=== PATIENT | male | born 1930 | race Caucasian/White ===

== ENCOUNTER 2018-10-12 17:02 | Inpatient (IN) ==
[2018-10-12] MEDS ORDERED: 0.9 % Sodium Chloride 1,000 ML IVC ONE (17:09)
--- NOTE | 2018-10-12 17:20 | Emergency Department Note ---
Disposition Clinical Impression: Clostridium difficile infection, Hyponatremia, Hyperkalemia, VANESSA (acute kidney injury), Elevated troponin, Abnormal EKG, C. difficile colitis, NSTEMI (non-ST elevated myocardial infarction) Sepsis Qualifiers: Sepsis type: sepsis due to unspecified organism Qualified Code(s): A41.9 - Sepsis, unspecified organism Diarrhea Qualifiers: Diarrhea type: unspecified type Qualified Code(s): R19.7 - Diarrhea, unspecified Disposition: Admitted As Inpatient Condition: Undetermined Time of Disposition: 20:30 General Adult HPI - General Chief complaint: ED Nausea/Vomiting/Diarrhea Stated complaint: Concern for C.Diff and lethargy Time Seen by Provider: 10/12/18 17:03 Source: patient, EMS Mode of arrival: EMS Limitations: no limitations Nursing Notes Reviewed: Yes Vital Signs Reviewed: Yes - History of Present Illness HPI Narrative: Patient is an 88-year-old male with a past medical history including atrial fibrillation, AICD/debrillator, hypertension, congestive heart failure, coronary artery disease with multiple stent placements, indwelling Lunsford catheter, presenting with chief complaint of generalized weakness and diarrhea. The patient comes from his private home where his home health nurse was. He was recently admitted to a different facility for C. difficile. He is discharged home 3 days ago on vancomycin and Flagyl. Per EMS, the home health RN states that he continues to have diarrhea and appeared to be weak today and falling asleep. EMS states that their initial blood pressure was hypotensive. He was alert and oriented 3. Patient states he is feeling well. He denies any a dditional diarrhea, blood in his stool, abdominal pain, chest pain, shortness of breath, generalized weakness. He states he feels fine and does not understand why he is here. - Related Data Home Medications Medication Instructions Recorded Confirmed Allopurinol [Zyloprim 100 MG] 200 mg PO DAILY 10/12/18 10/12/18 Aspirin [Ecotrin] 325 mg PO DAILY 10/12/18 10/12/18 Atorvastatin Calcium [Lipitor] 10 mg PO HS 10/12/18 10/12/18 Bisacodyl [Woman's Laxative] 5 mg PO DAILY PRN 10/12/18 10/12/18 Calcium Carbonate/Vitamin D3 1 each PO DAILY 10/12/18 10/12/18 [Calcium 600 + Vit D Tablet] Cholecalciferol (D-3) [Vitamin D] 1,000 unit PO DAILY 10/12/18 10/12/18 Ciprofloxacin HCl [Cipro] 500 mg PO BID 10/12/18 10/12/18 Cyanocobalamin (B-12) [Vitamin B12] 1,000 mcg PO DAILY 10/12/18 10/12/18 Docusate Sodium [Dulcolax Stool 200 mg PO DAILY PRN 10/12/18 10/12/18 Softener] Ferrous Gluconate 324 mg PO DAILY 10/12/18 10/12/18 Finasteride [Proscar] 5 mg PO DAILY 10/12/18 10/12/18 Furosemide [Lasix] 40 mg PO BID 10/12/18 10/12/18 Lactobac #2-S. Therm-Bifido #1 1 each PO DAILY 10/12/18 10/12/18 [Visbiome 112.5 Billion Capsule] Lisinopril [Zestril] 10 mg PO DAILY 10/12/18 10/12/18 Melatonin [Melatin] 9 mg PO HS 10/12/18 10/12/18 Metoprolol Succinate 100 mg PO DAILY 10/12/18 10/12/18 Multivit-Min/FA/Lycopen/Lutein 1 each PO DAILY 10/12/18 10/12/18 [Senior Tabs] Nitroglycerin [Nitrostat] 0.4 mg SL PRN PRN 10/12/18 10/12/18 Omeprazole [PriLOSEC] 20 mg PO DAILY 10/12/18 10/12/18 Polyethylene Glycol 3350 [MiraLAX] 17 gm PO DAILY 10/12/18 10/12/18 Potassium Chloride [Klor-Con 10] 10 meq PO DAILY 10/12/18 10/12/18 Sennosides [Evac-U-Gen] 8.6 mg PO BID PRN 10/12/18 10/12/18 Spironolactone [Aldactone] 12.5 mg PO DAILY 10/12/18 10/12/18 Tamsulosin HCl [Flomax] 0.8 mg PO HS 10/12/18 10/12/18 metroNIDAZOLE [Metronidazole] 500 mg PO BID 10/12/18 10/12/18 Allergies Allergy/AdvReac Type Severity Reaction Status Date / Time No Known Allergies Allergy Unverified 02/16/16 08:25 All systems ED: reviewed and negative except as stated. Review of Systems: As Per HPI Constitutional: Reports: weakness. Denies: fever, chills Eyes: Denies: vision change ENT ED: Denies: congestion Cardiovascular: Denies: chest pain, palpitations Respiratory: Reports: dyspnea. Denies: cough Gastrointestinal: Reports: diarrhea. Denies: abdominal pain, nausea, vomiting, hematochezia Genitourinary: Denies: hematuria Musculoskeletal: Denies: back pain, neck pain Integumentary: Denies: abrasion Neurological: Denies: headache, weakness, paresthesias Past Medical History - Past Medical History Attestation: Yes The following information was validated with the patient. Source: patient Medical history: Reports: other (Atrial fibrillation, hypertension) Physical Exam - General Limitations: no limitations General appearance: alert, in no apparent distress - Head Head exam: atraumatic, normocephalic - Eye Eye exam: Present: normal appearance, PERRL, EOMI - ENT ENT exam: mucous membranes dry - Neck Neck exam: Present: normal inspection, trachea midline - Chest Chest inspection: Present: normal inspection, symmetric chest wall rise - Respiratory Respiratory exam: Present: normal lung sounds bilaterally. Absent: respiratory distress, wheezes - Cardiovascular Cardiovascular exam: Present: normal rhythm, bradycardia, normal heart sounds - Abdominal Exam Abdominal exam: Present: soft, Non-Tender. Absent: distention - Extremities Exam Extremities exam: Present: normal capillary refill, other (2+ bilateral lower extremity pitting edema) - Neurological Exam Neurological exam: Present: alert, CN II-XII intact, other (alert and oriented to person, place, time, not president). Absent: motor sensory deficit - Expanded Neurological Exam Speech: Present: fluid speech Cerebellar function: finger to nose: Normal Motor strength - LUE: 5/5 Motor strength - RUE: 5/5 Motor strength - LLE: 5/5 Motor strength - RLE: 5/5 - Psychiatric Psychiatric exam: Present: normal affect, normal mood - Skin Skin exam: Present: warm, dry. Absent: diaphoresis, pallor Course Vital Signs Temperature 98.9 F 10/12/18 17:08 Pulse Rate 57 10/12/18 17:08 Respiratory Rate 18 10/12/18 17:08 Blood Pressure 93/62 10/12/18 17:08 O2 Sat by Pulse Oximetry 100 10/12/18 17:08 Temperature 98.9 F 10/12/18 17:08 Pulse Rate 57 10/12/18 18:01 Respiratory Rate 13 10/12/18 18:30 Blood Pressure 130/58 10/12/18 18:01 O2 Sat by Pulse Oximetry 97 10/12/18 18:30 Oxygen Delivery Oxygen Delivery Room Air Medical Decision Making - MDM Narrative Medical decision making narrative: Family is now at bedside. They state that the patient has been hospitalized multiple times this year. [facility] has [facility] He follows up with [facility]. They state he was recently admitted for C. difficile and discharged on Wednesday on vancomycin and Flagyl. They state he had a great day yesterday and worked with physical therapy. He also has a baseline of dementia, however today he appeared to be more confused than usual. He appeared more generally weak. He did not sleep throughout the night so was sleeping intermittently throughout the day. They note that he has been having more diarrhea today and has had 8 episodes of nonbloody diarrhea since 8 AM this morning. States his urine is dark. Home health nurse came this evening and his blood pressure was 70 systolic. They are concerned that the patient is dehydrated. EMS was called and brought the patient here. They state that the p atient is DNR. Lab work including CBC, BMP, troponin, lactate, urinalysis, chest x-ray is pending. Repeat blood pressure is 107 systolic. He is receiving a liter of IV fluids. LVEF is 30% on 05/21/15. He does have pitting edema in bilateral lower extremity. Non focal neurologic examination. 18:10 Patient has an elevated troponin is 0.19, no baseline. He does have an elevated BUN and creatinine were GFR of 21. Unknown what his baseline kidney function is. He does have a history of CAD stage III. His potassium is 6.6. Sodium is 124. He likely has electrolyte derangements from the diarrhea he has not as well as dehydration. He denies any chest pain. There is no ST elevation or dep ressions on EKG. No peaked T waves on EKG. Lactate and elevated white blood count is elevated. Source of infection is likely his C. difficile which he is currently on vancomycin and Zosyn. Chest x-ray and urinalysis is pending at this time. We will not give the 30 mL/kg fluid bolus as he has pitting edema bilateral lower extremities and an ejection fracture of 30%, pacemaker and defibrillator. Do not want to fluid overload this patient. Random cortisol will be obtained. We will give 2 albuterol treatments, 10 units IV insulin, 2 amps of D50 IV, Kayexalate for the hyperkalemia. Patient does not have dysrhythmias or peaked T waves on his EKG so we will hold off on calcium gluconate for now. Blood pressure improved to 130 systolic. Patient denies any pain or complaints at this time. 18:35 CXR shows pulmonary vascular congestion. Will repeat EKG and give dose of lovenox for elevated troponin. 18:55 Repeat EKG was obtained at 1839 and compared to the EKG obtained at 1716. There are no changes noted. 19:[address] Gallegos, Nephrology. Recommend maintenance fluids with 1L at 60mls/hr. Will place consult to Nephrology. Will also obtain renal ultrasound. Will call hospitalist of admission. 20:[address] Berry, hospitalist. Will give calcium gluconate and solu- cortef. Patient may need ICU. Discussed with patients son and daughter at bedside who are both his medical power of ip technology transactions attorney. Patient is DNR-CCA - Medical Records Medical records reviewed: Yes I reviewed the patient's medical records. - Lab Data Lab results reviewed: Yes I reviewed the patient's lab results. Result diagrams: 10/12/18 17:23 10/12/18 17:23 Lab Results 10/12/18 10/12/18 10/12/18 Range/Units 17:23 17:23 17:23 WBC 12.6 H (4.3-11.1) K/mcL RBC 3.23 L (4.19-5.50) M/mcL Hgb 9.7 L (12.9-16.9) g/dL Hct 29.9 L (37.5-50.1) % MCV 92.6 (83.0-100.0) fL MCH 30.0 (28.0-33.3) pg MCHC 32.4 (31.6-35.5) g/dL RDW 16.2 H (11.5-14.5) % Plt Count 241 (140-400) K/mcL MPV 10.3 (9.4-12.4) fL Immature Gran % 4.0 (0-4) % Seg Neutrophils % 82.4 % Lymphocytes % 5.9 % Monocytes % 6.8 % Eosinophils % 0.7 % Basophils % 0.2 % Neutrophils # 10.4 H (1.6-8.9) K/mcL Lymphocytes # 0.7 (0.6-4.6) K/mcL Monocytes # 0.9 (0.0-1.3) K/mcL Eosinophils # 0.1 (0.0-0.6) K/mcL Basophils # 0.0 (0.0-0.2) K/mcL Sodium 124 L (136-145) mEq/L Potassium 6.6 H* (3.5-5.1) mEq/L Chloride 96 L (98-107) mEq/L Carbon Dioxide 15 L (23-29) mEq/L BUN 66 H (8-23) mg/dL Creatinine 2.82 H (0.70-1.30) mg/dL Est GFR ( Amer) 26 L (> 60) Est GFR (Non-Af Amer) 21 L (> 60) BUN/Creatinine Ratio 23 (6-26) Glucose 129 H (70-105) mg/dL Calculated Osmolality 279 L (280-300) Lactic Acid 2.7 H (0.5-2.2) mmol/L Calcium 8.6 (8.6-10.3) mg/dL Troponin I 0.19 H* (< 0.04) ng/mL Random Cortisol 28.8 mcg/dl - Radiology Data Radiology results reviewed: Yes I reviewed the patient's radiology results. Chest X-Ray 10/12/18 17:11 IMPRESSION: Pulmonary vascular congestion. D/ / Mariano Rogers MD / Mariano Rogers MD Interpreting Provider: Mariano Rogers MD - EKG Data EKG #1 EKG attestation: Yes I reviewed and interpreted this EKG. EKG results narrative: X-ray obtained at 1716 shows sinus rhythm with heart rate 57, AL interval 291, QRS duration 155, QTC 499, prolonged AL interval, no ST elevation, T-wave inversion in lead V5 and V6, aVL, no old EKG to compare to
--- NOTE | 2018-10-12 17:22 | Emergency Department Note ---
Disposition Clinical Impression: Clostridium difficile infection Disposition: Still a Patient Forms: ED Satisfaction Letter Time of Disposition: 17:23 General Adult HPI - General Chief complaint: ED Nausea/Vomiting/Diarrhea Stated complaint: Concern for C.Diff and lethargy Time Seen by Provider: 10/12/18 17:03 Source: patient, EMS Mode of arrival: EMS Limitations: no limitations Nursing Notes Reviewed: Yes Vital Signs Reviewed: Yes - History of Present Illness HPI Narrative: Attestation note: Patient was seen with the emergency medicine resident/nurse practitioner/ph ysician editorial assistant/transitional resident/medical student: Dr. LAWRENCE ESTRADA. I was present for the significant portions of the performance and interpretation of procedures and EKGs. I have personally performed a face to face evaluation on this patient. I have reviewed and agree with history and physical examination patient management and disposition. BRIEFLY: 88-year-old male recently released from [facility] diagnosis of C. difficile is on vancomycin and Flagyl. He went from there back to his home they noticed that he was a little more tired than usual he said he initially came in with "lethargic" patient is awake and alert answers all questions appropriately states he is not really having diarrhea does not appear to be in any major distress he is afebrile with stable vital signs patient will get screening labs. Disposition is pending at this time Pain Scale: 0 - Related Data Allergies Allergy/AdvReac Type Severity Reaction Status Date / Time No Known Allergies Allergy Unverified 05/21/15 08:25 Past Medical History - Past Medical History Medical history: Reports: other (Atrial fibrillation, hypertension) Psychiatric history: Reports: no psych history - Social History Smoking Status: Never smoker Smokeless Tobacco Status: No Alcohol use: Reports: none Drug use: Reports: none Physical Exam - General Limitations: no limitations General appearance: alert, in no apparent distress Course Vital Signs Temperature 98.9 F 10/12/18 17:08 Pulse Rate 57 10/12/18 17:08 Respiratory Rate 18 10/12/18 17:08 Blood Pressure 93/62 10/12/18 17:08 O2 Sat by Pulse Oximetry 100 10/12/18 17:08 Temperature 98.9 F 10/12/18 17:08 Pulse Rate 57 10/12/18 17:08 Respiratory Rate 18 10/12/18 17:08 Blood Pressure 93/62 10/12/18 17:08 O2 Sat by Pulse Oximetry 100 10/12/18 17:08 Oxygen Delivery Oxygen Delivery Room Air
[2018-10-12 17:33] LABS: Basophils % 0.2 %; Eosinophils # 0.1 K/mcL (0.0-0.6); Eosinophils % 0.7 %; Hematocrit 29.9 % (37.5-50.1); Hemoglobin 9.7 g/dL (12.9-16.9); Lymphocytes # 0.7 K/mcL (0.6-4.6); Lymphocytes % 5.9 %; Mean Corpuscular HGB Conc 32.4 g/dL (31.6-35.5); Mean Corpuscular Volume 92.6 fL (83.0-100.0); Mean Platelet Volume 10.3 fL (9.4-12.4); Monocytes # 0.9 K/mcL (0.0-1.3); Monocytes % 6.8 %; Neutrophils # 10.4 K/mcL (1.6-8.9); Platelet Count 241 K/mcL (140-400); Red Blood Count 3.23 M/mcL (4.19-5.50); Red Cell Distribution Width 16.2 % (11.5-14.5); Segmented Neutrophils % 82.4 %; White Blood Count 12.6 K/mcL (4.3-11.1)
[2018-10-12 18:05] LABS: Calcium 8.6 mg/dL (8.6-10.3); Potassium 6.6 mEq/L (3.5-5.1); Troponin I 0.19 ng/mL (< 0.04)
[2018-10-12] MEDS ORDERED: Albuterol 2.5 MG/3 ML NEBULIZER IH ONE (18:13)
[2018-10-12] MEDS ORDERED: Insulin Human Regular 10 UNIT in 0.9 % Sodium Chloride 10 ML IV ONE (18:13)
[2018-10-12] MEDS ORDERED: *HR* Enoxaparin 100 MG/ML SYRINGE SQ STA (19:03)
[2018-10-12] MEDS: *HR* Dextrose 50 % in Water (Syg) 50 ML SYRINGE IVP ONE ×3 (19:20→19:40)
[2018-10-12] MEDS ORDERED: 0.9 % Sodium Chloride 1,000 ML IVC SCH (19:30)
[2018-10-12] MEDS ORDERED: Hydrocortisone Sodium Succ 100 MG/2 ML VIAL IVP ONE (20:03)
[2018-10-12] MEDS ORDERED: Calcium Gluconate 1gm/50mL 1 GM/50 ML BAG IVPB ONE (20:03)
[2018-10-12] MEDS: Calcium Gluconate 1gm/50mL 1 GM/50 ML BAG IVPB ONE ×2 (20:07→20:49)
[2018-10-12] MEDS ORDERED: Melatonin 3 MG TABLET PO SCH (21:00)
[2018-10-12] MEDS ORDERED: Naloxone 0.4 MG/ML INJ IVP PRN ×2 (21:15→21:40)
[2018-10-12] MEDS ORDERED: Sennosides 8.6 MG TABLET PO PRN (21:18)
[2018-10-12] MEDS ORDERED: Nitroglycerin 0.4 MG TAB.SUBL SL PRN (21:18)
[2018-10-12] MEDS ORDERED: 0.9 % Sodium Chloride 1,700 ML IVC SCH (21:45)
[2018-10-12 22:00] LABS: Bilirubin,Urine Negative (Negative); Blood,Urine Large (Negative); Clarity,Urine Cloudy (Clear); Color,Urine Yellow (Yellow); Glucose,Urine (UA) Normal (Normal); Ketones,Urine Negative (Negative); Leukocyte Esterase,Urine Moderate (Negative); Nitrite,Urine Negative (Negative); Protein,Urine 100 mg/dL (Neg-Trace); Specific Gravity,Urine 1.019 (1.010-1.025); Urobilinogen,Urine Normal (Normal)
[2018-10-12 22:02] LABS: Bacteria,Urine None Seen per hpf (None-Few); Squamous Epithelial Cell,Urine Many per lpf (None-Few); WBC,Urine 15-30 per hpf (0-3)
[2018-10-12] MEDS ORDERED: 0.9 % Sodium Chloride 1,000 ML ONE (22:04)
[2018-10-12 22:12] LABS: Hyaline Casts,Urine Few per lpf (None-Few); Yeast,Urine Few per hpf (None Seen)
[2018-10-12] MEDS: MetroNIDAZOLE 500 MG/100 ML 500 MG/100 ML BAG IVPB SCH (23:02)
[2018-10-12] MEDS: 0.9 % Sodium Chloride 1,000 ML IVC SCH (23:02)
--- NOTE | 2018-10-12 23:17 | Internal Med History&Physical ---
Date of Encounter: 10/12/18 Time of Encounter: 19:55 Internal Medicine - H&P: HPI Chief complaint: weakness; depressed responsiveness Admitted From: Emergency Dept Plans for Post Hospital Care: Transfer Long Term Facility History of present illness: Mr. Landa is an 88 year old male who presents to the ER by squad for concerns of worsening weakness, depressed mental status, lack of urine output, and ongoing C. difficile colitis with diarrhea. Patient was recently hospitalized at the [facility] and was discharged about a week ago. He been on home antibiotics and had home health therapy for treatment of C. difficile colitis. He was seen by his home health nurse today who noted his blood pressure be in the 60s systolic and that he was minimally responsive and quite somnolent. She contacted the family and recommended patient be transferred to ER by EMS. 911 was called and patient was brought to ER. In the ER, patient was noted to be profoundly weak, intravascularly dry, somnolent, and had evidence of severe sepsis along with hyperkalemia and hyponatremia in the setting of acute kidney injury. CODE STATUS was clarified with family and he is DNR Arrest. I was called by ER staff and accepted him to be admitted to the intensive care unit. I arrived to the ER to see patient and discussed with family. Upon my initial assessment of the patient, he appeared to be intravascular dry, had evidence of poor perfusion with absence and marked delay of capillary refill, and had depressed level of consciousness. I spoke with family at length about CODE STATUS and his expressed wishes are to be a DNR Arrest. He did receive 1 L fluid bolus for sepsis treatment. He has not yet received 30 mL's per kilogram per sepsis protocol because of concerns of CHF. Given his clinical picture and evidence of poor perfusion, I recommend the full 30/kg bolus with ongoing maintenance fluids. However, given such a fluid bolus, this may throw him into worsening heart failure. Presently, he is breathing easily and comfortably on room air. However, with excessive fluid bolus, he may require supportive measures, including intubation. Family is OK with short-term intubation if necessary. However, they wish to exercise his DNR Arrest CODE STATUS otherwise. I am also concerned about his hyperkalemia and that he may warrant emergent dialysis. If he fails treatment with conservative measures, he may warrant temporary dialysis tonight. Family agrees to that as well if necessary. He has not reported any significant abdominal pain but he has complained of diarrhea. His oral intake has diminished the last few days. His daughter and son say he's had almost no urine output for 24 hours now. I explained to family that he is critically ill and, despite all measures, he may not survive this hospital stay. They voiced understanding and agreement with the plan of care. As noted above, they are OK with short-term intubation in the event he needs it for CHF complicated by treatment of sepsis and fluid requirements. In the event that he develops toxic megacolon, they will likely defer any surgical intervention and will likely request to keep him comfortable only. I agree with their decision in this regards. My hope is that he will improve and survive. However, he remains critically ill and presently carries a high mortality risk. This was conveyed to family and they voiced understanding. Past Med Surg Social Fam HX - Past Medical History Source: obtained from family, other (very limited ER records; no [facility] for review) Medical history: CHF, coronary artery disease, dementia, renal disease (CKD stage 2) Psychiatric history: no psych history - Past Surgical History Surgical History: angioplasty/stent, pacemaker/AICD - Social History Smoking Status: Never smoker Smokeless Tobacco Status: No Alcohol use: none Drug use: none Current living situation: Home - Independent Activity Level: Mostly sedentary Recent Out of Country Travel Within the Last 8 Weeks: No - Family History Mother History Unknown: Yes Living Status: Father History Unknown: Yes Living Status: Internal Medicine - H&P: Meds Allopurinol [Zyloprim 100 MG] 200 mg PO DAILY 10/12/18 [History] Aspirin [Ecotrin] 325 mg PO DAILY 10/12/18 [History] Atorvastatin Calcium [Lipitor] 10 mg PO HS 10/12/18 [History] Bisacodyl [Woman's Laxative] 5 mg PO DAILY PRN 10/12/18 [History] Calcium Carbonate/Vitamin D3 [Calcium 600 + Vit D Tablet] 1 each PO DAILY [History] Cholecalciferol (D-3) [Vitamin D] 1,000 unit PO DAILY 10/12/18 [History] Ciprofloxacin HCl [Cipro] 500 mg PO BID 10/12/18 [History] Cyanocobalamin (B-12) [Vitamin B12] 1,000 mcg PO DAILY 10/12/18 [History] Docusate Sodium [Dulcolax Stool Softener] 200 mg PO DAILY PRN 10/12/18 [History] Ferrous Gluconate 324 mg PO DAILY 10/12/18 [History] Finasteride [Proscar] 5 mg PO DAILY 10/12/18 [History] Furosemide [Lasix] 40 mg PO BID 10/12/18 [History] Lactobac #2-S. Therm-Bifido #1 [Visbiome 112.5 Billion Capsule] 1 each PO DAILY 10/12/18 [History] Lisinopril [Zestril] 10 mg PO DAILY 10/12/18 [History] Melatonin [Melatin] 9 mg PO HS 10/12/18 [History] Metoprolol Succinate 100 mg PO DAILY 10/12/18 [History] Multivit-Min/FA/Lycopen/Lutein [Senior Tabs] 1 each PO DAILY 10/12/18 [History] Nitroglycerin [Nitrostat] 0.4 mg SL PRN PRN 10/12/18 [History] Omeprazole [PriLOSEC] 20 mg PO DAILY 10/12/18 [History] Polyethylene Glycol 3350 [MiraLAX] 17 gm PO DAILY 10/12/18 [History] Potassium Chloride [Klor-Con 10] 10 meq PO DAILY 10/12/18 [History] Sennosides [Evac-U-Gen] 8.6 mg PO BID PRN 10/12/18 [History] Spironolactone [Aldactone] 12.5 mg PO DAILY 10/12/18 [History] Tamsulosin HCl [Flomax] 0.8 mg PO HS 10/12/18 [History] metroNIDAZOLE [Metronidazole] 500 mg PO BID 10/12/18 [History] Allergy/AdvReac Type Severity Reaction Status Date / Time No Known Allergies Allergy Unverified 05/21/15 08:25 ROS unobtainable: due to mental status (patient arousable, confused, and somnolent -- unable to provide ROS) - Constitutional Vitals: Temp Pulse Resp BP Pulse Ox 96.7 F L 61 16 152/117 97 10/12/18 21:20 10/12/18 21:20 10/12/18 21:20 10/12/18 21:20 07/10/19 21:20 General appearance: Absent: answers questions appropriately Exam: somnolent; arousable but drifts off to sleep; appears intravascularly dry with poor perfusion and marked delay in cap refill; third spacing likely due to protein loss from C. Diff Colitis; ashen zamora color - Head Head exam: Present: atraumatic, normal inspection - Eye Eye exam: Present: PERRL. Absent: scleral icterus - ENT ENT exam: Present: mucous membranes dry, normal exam, normal oropharynx Additional comments: sunken eyes; temporal muscle wasting - Neck Neck exam general surgery: Present: full ROM, supple, trachea midline. Absent: lymphadenopathy, tenderness, nuchal rigidity, thyromegaly - Respiratory Respiratory exam: Present: CTAB. Absent: chest wall tenderness, rales, respiratory distress, rhonchi, wheezes, tachypnea - Cardiovascular Cardiovascular exam: Present: distant heart sounds, +S1, +S2. Absent: diastolic murmur, systolic murmur Additional comments: pacer palpable in left upper chest - GI/Abdominal GI/Abdominal exam: Present: distended, hypoactive bowel sounds, soft, no peritoneal signs. Absent: guarding, hepatomegaly, mass, rebound, splenomegaly, tenderness - Extremities Exam Extremities exam: Present: pedal edema (2-3+ ), radial pulses palpable and symmetrical. Absent: calf tenderness, joint swelling, normal capillary refill (markedly delayed at ~ 5-6 seconds), mottling, warm (cool extremities) - Back Exam Back exam: Absent: CVA tenderness (L), CVA tenderness (R) - Neurological Exam Neurological exam: Absent: alert Additional comments: somnolent; responds to voice, pain, and has purposeful movements - Skin Skin exam: Present: dry, intact. Absent: mottled, normal color (ashen zamora), rash Additional comments: poor cap refill Internal Med - H&P Results - Labs CBC & Chem 7: 10/12/18 17:23 10/12/18 20:46 Labs: Short CBC 10/12/18 Range/Units 17:23 WBC 12.6 H (4.3-11.1) K/mcL Hgb 9.7 L (12.9-16.9) g/dL Hct 29.9 L (37.5-50.1) % Plt Count 241 (140-400) K/mcL Neutrophils # 10.4 H (1.6-8.9) K/mcL BMP 10/12/18 10/12/18 17:23 20:46 Sodium 124 L Potassium 6.6 H* 5.9 H Chloride 96 L Carbon Dioxide 15 L BUN 66 H Creatinine 2.82 H Glucose 129 H Calcium 8.6 Cardiac Enzymes 10/12/18 Range/Units 17:23 Troponin I 0.19 H* (< 0.04) ng/mL Urine 10/12/18 Range/Units 21:48 Urine Color Yellow (Yellow) Urine Clarity Cloudy A (Clear) Urine pH 5.0 (5.0-8.0) pH Units Ur Specific [place] 1.019 (1.010-1.025) Urine Protein 100 H (Neg-Trace) mg/dL Urine Glucose (UA) Normal (Normal) mg/dL - EKG Data -: EKG Interpreted by Myself - EKG Data Prior EKG available for review: no When compared to previous EKG: there is no significant change EKG comments: 10/12/18 23:26 Poor quality tracing appears to be ventricular paced with PVC's. - Impressions ITS Impressions Chest X-Ray 10/12/18 17:11 IMPRESSION: Pulmonary vascular congestion. D/ / Mariano Rogers MD / Mariano Rogers MD Interpreting Provider: Mariano Rogers MD Retroperitoneum Ultrasound 10/12/18 19:30 IMPRESSION: 1. No obstructive uropathy. 2. Luns[place] catheter in place. 3. Ascites. D/ / Adilson Early MD / Adilson Early MD Interpreting Provider: Adilson Early MD - Diagnostic Studies Chest x-ray Status: image reviewed by me - Assessment and Plan (1) Severe sepsis Current Visit: Yes Status: Acute Assessment and plan: 1. Most likely source is Clostridium Difficile Colitis. 2. Will order and complete 30 ml/kg IVF bolus (another 1700 ml in addition to 100 ml given in ER) and continue MIV. 3. Will trend Lactate and monitor hemodyamics in ICU. 4. If patient develops acute CHF and respiratory distress secondary to IVF boluses from sepsis treatment, short term intubation is OK. Presently, he is breathing easily and comfortably on RA. His lungs are clear on auscultation and I suspect BLE edema due to protein malnutrition from C. Diff/protein losing enteropathy. 5. Prognosis is poor and mortality risk is high -- discussed with family. 6. Consult ICU team for ongoing ICU care. (2) VANESSA (acute kidney injury) Current Visit: Yes Status: Acute Assessment and plan: 1. Monitor I/O and renal function. 2. Nephrology consulted. 3. Monitor electrolytes, especially potassium. (3) C. difficile colitis Current Visit: Yes Status: Acute Assessment and plan: 1. Will treat with IV Flagyl and rectal Vancomycin enemas. 2. Patient unable to take PO meds presently. (4) Hyperkalemia Current Visit: Yes Status: Acute Assessment and plan: 1. Will trend and monitor electrolytes Q6H. 2. Will administer stress dose steroids in the rare event he has developed adrenal insufficiency. 3. Home med list is not available and I can not confirm from family if he is on any chronic steroids. 4. Patient was given conservative treatment for hyperkalemia in ER. Continue IVF and monitor potassium closely. 5. Nephrology consulted by ER. (5) Hyponatremia Current Visit: Yes Status: Acute Assessment and plan: 1. As above, trend electrolytes Q6H. 2. Stress dose steroids for remote possibility of adrenal insufficiency. (6) CHF (congestive heart failure) Current Visit: Yes Status: Chronic Assessment and plan: 1. No acute process on exam despite BLE edema. 2. Monitor clinically. 3. If necessary, short term intubation OK for treatment of CHF. Qualifiers: Heart failure type: unspecified Heart failure chronicity: chronic Qualified Code(s): I50.9 - Heart failure, unspecified (7) DVT prophylaxis Current Visit: Yes Status: Acute Assessment and plan: 1. Heparin SQ. - Summary of Assessment and Plan Summary of Assessment and Plan: Note: 45 minutes critical care time spent with patient, discussing with family, and coordinating care. - Time Spent With Patient Total time spent is greater than 50% in coordination of care (as documented) at patient's floor/unit and/or counseling patient:
[2018-10-12 23:34] LABS: INR 1.3; Prothrombin Time 15.3 Seconds (9.4-12.1)
[2018-10-12 23:44] LABS: Calcium 8.4 mg/dL (8.6-10.3); Potassium 5.8 mEq/L (3.5-5.1)
[2018-10-13 00:01] LABS: Albumin 3.2 g/dL (3.5-5.7); Albumin/Globulin Ratio 1.3 (1.1-2.2); Bilirubin,Direct 0.2 mg/dL (0.0-0.2); Bilirubin,Indirect 0.2 mg/dL (0.0-1.2); Bilirubin,Total 0.4 mg/dL (0.3-1.0); Globulin 2.4 g/dL (2.4-3.5); Total Protein 5.6 g/dL (6.4-8.9)
[2018-10-13] MEDS: *HR* Heparin 5,000 UNIT/ML VIAL SQ SCH ×2 (05:21→17:03)
[2018-10-13 05:27] LABS: Basophils % 0.2 %; Eosinophils % 0.1 %; Hematocrit 29.8 % (37.5-50.1); Hemoglobin 9.7 g/dL (12.9-16.9); Immature Granulocytes % 5.3 % (0-4); Lymphocytes # 0.4 K/mcL (0.6-4.6); Lymphocytes % 3.6 %; Mean Corpuscular HGB Conc 32.6 g/dL (31.6-35.5); Mean Corpuscular Hemoglobin 30.3 pg (28.0-33.3); Mean Corpuscular Volume 93.1 fL (83.0-100.0); Mean Platelet Volume 10.7 fL (9.4-12.4); Monocytes # 0.4 K/mcL (0.0-1.3); Monocytes % 3.5 %; Neutrophils # 10.4 K/mcL (1.6-8.9); Platelet Count 234 K/mcL (140-400); Red Cell Distribution Width 16.4 % (11.5-14.5); Segmented Neutrophils % 87.3 %; White Blood Count 11.9 K/mcL (4.3-11.1)
[2018-10-13 05:50] LABS: Calcium 8.2 mg/dL (8.6-10.3); Magnesium 2.2 mg/dL (1.6-2.6); Phosphorous 6.5 mg/dL (2.7-4.5); Potassium 6.5 mEq/L (3.5-5.1)
[2018-10-13 05:56] LABS: Burr Cells 1+ (Not Present); Hypochromasia Present (Not Present); Platelet Estimate Normal (Normal)
[2018-10-13] MEDS ORDERED: Hydrocortisone Sodium Succ 100 MG/2 ML VIAL IVP SCH (06:00)
[2018-10-13] MEDS ORDERED: *HR* Dextrose 50 % in Water (Syg) 50 ML SYRINGE IVP STA (06:07)
[2018-10-13] MEDS ORDERED: Insulin Human Regular 10 UNIT in 0.9 % Sodium Chloride 10 ML IV STA (06:08)
[2018-10-13] MEDS ORDERED: Albuterol 2.5 MG/3 ML NEBULIZER IH ONE (06:09)
[2018-10-13] MEDS ORDERED: Calcium Gluconate 1gm/50mL 1 GM/50 ML BAG IVPB ONE (06:30)
--- NOTE | 2018-10-13 06:40 | Event Note ---
Date of Encounter: 10/13/18 Time of Encounter: 06:20 Pt had a critical potassium of 6.5. 10mg Albuterol, 10U insulin IV with dextrose, 1g Calcium gluconate and 30mg Kayexelate were ordered with a repeat potassium scheduled for 0800. Nephro has already been consulted. Pt denies chest pain. As he is already fluid overloaded we will not give additional fluids at this time.
--- NOTE | 2018-10-13 07:05 | Pulmonology Consult Note ---
<JassAris Marinelli - Last Filed: 10/13/18 14:36> Date of Encounter: 10/13/18 Time of Encounter: 08:00 Assessment and Plan (1) Severe sepsis Current Visit: Yes Status: Acute Most likely related to C. difficile colitis Patient received 2 L IV fluid resuscitation - further IV fluids will be given cautiously given patient has a history of CHF Lactic acid trended 2.7 -> 2.4 -> 2.0 Vital signs remain stable at this time, afebrile, blood pressures have been soft with most recent at 99/67. Saturating well on room air. Continue IV Flagyl and rectal vancomycin enemas We will give 500 mL 5% albumin Continue close monitoring in ICU at this time (2) Hyperkalemia Current Visit: Yes Status: Acute Elevated at 6.6 on presentation Received 10 units of insulin, calcium gluconate, albuterol, and IV fluids initially. Patient did refuse po Kayexalate. Potassium was continued to be trended and was noted to initially improve, but subsequently worsened with most recent this morning at 6.6 once more. Another dose of 10 units of insulin, calcium gluconate, albuterol neb were or dered. Kayexalate enema was also ordered as patient continues to refuse po meds. Nephrology has been consulted as patient is also noted to have VANESSA with oliguria. Palliative care also consulted for further goals of care discussion. 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 T wave inversion was noted in leads V5, V6, and aVL. Suspect demand ischemia with severe sepsis Unable to truly evaluate for chest pain, however pt is resting comfortably with no signs of guarding or grimace Continue to monitor (5) C. difficile colitis Current Visit: Yes Status: Acute IV Flagyl and rectal Vanc as above (6) CHF (congestive heart failure) Current Visit: Yes Status: Chronic Reported history of CHF Pt does have AICD as visualized on CXR Will attempt [facility] obtain [facility] Qualifiers: Heart failure type: unspecified Heart failure chronicity: chronic Qualified Code(s): I50.9 - Heart failure, unspecified History of Present Illness Consult date: 10/13/18 Reason for consult: other Chief complaint: Hyperkalemia History of present illness: Mr Landa is a 88M with PMH of CAD, CHF, CKD, and dementia. Most of the history of present illness is obtained from review of records as patient is noncommunicative at this time. Reports he was recently hospitalized at the [facility] and was discharged about one week ago with home antibiotics for treatment of C. difficile colitis. Home health nurse visited on 10/12/2018 and reported that his blood pressure was in the 60s systolic and at the patient was minimally responsive and quite somnolent. The patient was then taken to the ER by EMS, where the patient was found to be profoundly weak, intravascularly depleted, somnolent, and had evidence of severe sepsis with hyperkalemia, and hyponatremia in the setting of an acute kidney injury. Chest x-ray from ED showed pulmonary vascular congestion. The patient did receive 2 L of IV fluids. He was started on IV Flagyl and rectal vancomycin enemas for continued treatment of C. difficile colitis. In stress dose steroids to cover for adrenal insufficiency, and given calcium gluconate, albuterol neb, and 10 units of insulin to assist with hyperkalemia. Nephrology was consulted. Patient seen and examined at bedside this morning. Patient is alert, but unclear whether he is unable to speak or refusing to speak. He has grossly not cooperative with exam. Of note patient refused po Kayexalate this morning. A repeat potassium was noted to be continually elevated to 6.6 this morning, another 10 units of insulin, albuterol neb, and calcium gluconate were given. Past Med Surg Social Fam HX - Past Medical History Medical history: CHF, coronary artery disease, dementia, renal disease (CKD stage 2) Additional medical history: Not assessable- patient unsure Psychiatric history: no psych history - Past Surgical History Surgical History: angioplasty/stent, pacemaker/AICD - Social History Smoking Status: Never smoker Smokeless Tobacco Status: No Alcohol use: none Drug use: none - Family History Mother History Unknown: Yes Living Status: Father History Unknown: Yes Living Status: Medications and Allergies Allopurinol [Zyloprim 100 MG] 200 mg PO DAILY 10/12/18 [History] Aspirin [Ecotrin] 325 mg PO DAILY 10/12/18 [History] Atorvastatin Calcium [Lipitor] 10 mg PO HS 10/12/18 [History] Bisacodyl [Woman's Laxative] 5 mg PO DAILY PRN 10/12/18 [History] Calcium Carbonate/Vitamin D3 [Calcium 600 + Vit D Tablet] 1 each PO DAILY 10/12/18 [History] Cholecalciferol (D-3) [Vitamin D] 1,000 unit PO DAILY 10/12/18 [History] Ciprofloxacin HCl [Cipro] 500 mg PO BID 10/12/18 [History] Cyanocobalamin (B-12) [Vitamin B12] 1,000 mcg PO DAILY 10/12/18 [History] Docusate Sodium [Dulcolax Stool Softener] 200 mg PO DAILY PRN 10/12/18 [History] Ferrous Gluconate 324 mg PO DAILY 10/12/18 [History] Finasteride [Proscar] 5 mg PO DAILY 10/12/18 [History] Furosemide [Lasix] 40 mg PO BID 10/12/18 [History] Lactobac #2-S. Therm-Bifido #1 [Visbiome 112.5 Billion Capsule] 1 each PO DAILY 10/12/18 [History] Lisinopril [Zestril] 10 mg PO DAILY 10/12/18 [History] Melatonin [Melatin] 9 mg PO HS 10/12/18 [History] Metoprolol Succinate 100 mg PO DAILY 10/12/18 [History] Multivit-Min/FA/Lycopen/Lutein [Senior Tabs] 1 each PO DAILY 10/12/18 [History] Nitroglycerin [Nitrostat] 0.4 mg SL PRN PRN 10/12/18 [History] Omeprazole [PriLOSEC] 20 mg PO DAILY 10/12/18 [History] Polyethylene Glycol 3350 [MiraLAX] 17 gm PO DAILY 10/12/18 [History] Potassium Chloride [Klor-Con 10] 10 meq PO DAILY 10/12/18 [History] Sennosides [Evac-U-Gen] 8.6 mg PO BID PRN 10/12/18 [History] Spironolactone [Aldactone] 12.5 mg PO DAILY 10/12/18 [History] Tamsulosin HCl [Flomax] 0.8 mg PO HS 10/12/18 [History] metroNIDAZOLE [Metronidazole] 500 mg PO BID 10/12/18 [History] Allergy/AdvReac Type Severity Reaction Status Date / Time No Known Allergies Allergy Unverified 05/21/15 08:25 ROS unobtainable: due to mental status All Systems: The remainder of the systems were reviewed and are negative Physical Examination Vital Signs: Vital Signs, Last 4 Hours Temp Pulse Resp BP Pulse Ox 10/13/18 06:18 24 97 10/13/18 06:00 58 22 99/67 92 10/13/18 05:00 61 30 96/61 90 10/13/18 04:00 97.5 F L 59 28 89/48 92 General appearance: no acute distress, alert Eyes: nonicteric ENT: oropharynx dry Neck: supple, no JVD Effort: normal Inspection: normal Auscultation: bilateral: diminished breath sounds Cardiovascular: regular rate and rhythm Gastrointestinal: soft, non-tender, non-distended Integumentary: normal Extremities: no cyanosis, no clubbing, pink and warm, pulses normal Musculoskeletal: no deformities pupils equal and round, unable to assess due to mental status Results - Laboratory Findings CBC and BMP: 10/13/18 04:18 10/13/18 10:16 PT/INR, D-dimer PT 15.3 Seconds (9.4-12.1) H 10/12/18 22:54 Abnormal lab findings: Abnormal lab results WBC 11.9 K/mcL (4.3-11.1) H 10/13/18 04:18 RBC 3.20 M/mcL (4.19-5.50) L 10/13/18 04:18 Hgb 9.7 g/dL (12.9-16.9) L 10/13/18 04:18 Hct 29.8 % (37.5-50.1) L 10/13/18 04:18 RDW 16.4 % (11.5-14.5) H 10/13/18 04:18 Immature Gran % 5.3 % (0-4) H 10/13/18 04:18 10.4 K/mcL (1.6-8.9) H 10/13/18 04:18 0.4 K/mcL (0.6-4.6) L 10/13/18 04:18 Present (Not Present) A 10/13/18 04:18 1+ (Not Present) A 10/13/18 04:18 PT 15.3 Seconds (9.4-12.1) H 10/12/18 22:54 Sodium 126 mEq/L (136-145) L 10/13/18 04:18 Potassium 6.5 mEq/L (3.5-5.1) H* 10/13/18 04:18 Chloride 96 mEq/L (98-107) L 10/12/18 17:23 Carbon Dioxide 15 mEq/L (23-29) L 10/13/18 04:18 BUN 68 mg/dL (8-23) H 10/13/18 04:18 2.86 mg/dL (0.70-1.30) H 10/13/18 04:18 Est GFR ( Amer) 25 (> 60) L 10/13/18 04:18 Est GFR (Non-Af Amer) 21 (> 60) L 10/13/18 04:18 Glucose 119 mg/dL (70-105) H 10/13/18 04:18 POC Glucose 134 mg/dL (70-99) H 10/12/18 22:18 279 (280-300) L 10/12/18 17:23 Lactic Acid 2.4 mmol/L (0.5-2.2) H 10/12/18 21:14 Calcium 8.2 mg/dL (8.6-10.3) L 10/13/18 04:18 Phosphorus 6.5 mg/dL (2.7-4.5) H 10/13/18 04:18 AST 959 Units/L (13-39) H 10/12/18 22:54 ALT 897 Units/L (7-52) H 10/12/18 22:54 176 Units/L (34-104) H 10/12/18 22:54 0.21 ng/mL (< 0.04) H* 10/13/18 01:36 5.6 g/dL (6.4-8.9) L 10/12/18 22:54 3.2 g/dL (3.5-5.7) L 10/12/18 22:54 Cloudy (Clear) A 10/12/18 21:48 100 mg/dL (Neg-Trace) H 10/12/18 21:48 Large (Negative) H 10/12/18 21:48 Ur Leukocyte Esterase Moderate (Negative) H 10/12/18 21:48 5-15 per hpf (0-3) H 10/12/18 21:48 15-30 per hpf (0-3) H 10/12/18 21:48 Ur Squamous Epith Cells Many per lpf (None-Few) H 10/12/18 21:48 Few per hpf (None Seen) H 10/12/18 21:48 Ur Culture Indicated? YES (NO) A 10/12/18 21:48 - Microbiology Findings Microbiology Findings: Microbiology, Last 48 Hours 10/12/18 21:48 Urine Culture - Preliminary Urine,Clean Catch Culture is incubating. 10/12/18 20:46 Blood Culture - Preliminary Peripheral Venipuncture Culture is incubating and being continuously monitored for growth. Final report to follow. 10/12/18 20:46 Blood Culture - Preliminary Peripheral Venipuncture Culture is incubating and being continuously monitored for growth. Final report to follow. - Diagnostic Findings Chest x-ray: report reviewed, image reviewed - Clinical Findings Intake & Output: Intake & Output 10/12/18 10/12/18 10/13/18 15:59 23:59 07:59 Intake Total 2059.2059.1 100 / 100 Output Total 50 / 50 50 / 50 Balance 2009. 50 / 50 Weight 91.9 kg 82.8 kg Consult Discharge Plan - Plan [facility] Provider[facility] - <Mauri Fitzgerald - Last Filed: 10/13/18 19:24> Date of Encounter: 10/13/18 All Systems: The remainder of the systems were reviewed and are negative Physical Examination Vital Signs: Vital Signs, Last 4 Hours Temp Pulse Resp BP Pulse Ox 10/13/18 19:00 97.2 F L 70 19 110/67 96 10/13/18 18:46 66 10/13/18 18:22 67 20 113/65 96 10/13/18 17:00 65 17 86/57 97 10/13/18 16:27 97.5 F L 10/13/18 16:00 64 21 112/69 97 Results - Laboratory Findings CBC and BMP: 10/13/18 16:05 10/13/18 16:05 PT/INR, D-dimer PT 15.3 Seconds (9.4-12.1) H 10/12/18 22:54 Abnormal lab findings: Abnormal lab results WBC 14.8 K/mcL (4.3-11.1) H 10/13/18 16:05 RBC 3.22 M/mcL (4.19-5.50) L 10/13/18 16:05 Hgb 9.6 g/dL (12.9-16.9) L 10/13/18 16:05 Hct 29.9 % (37.5-50.1) L 10/13/18 16:05 RDW 16.2 % (11.5-14.5) H 10/13/18 16:05 Immature Gran % 4.7 % (0-4) H 10/13/18 16:05 Neutrophils # 12.9 K/mcL (1.6-8.9) H 10/13/18 16:05 Lymphocytes # 0.4 K/mcL (0.6-4.6) L 10/13/18 16:05 Nucleated RBCs/100 WBC 0.1 /100 WBC (0) H 10/13/18 16:05 Hypochromasia Present (Not Present) A 10/13/18 04:18 Mike Cells 1+ (Not Present) A 10/13/18 04:18 PT 15.3 Seconds (9.4-12.1) H 10/12/18 22:54 Sodium 128 mEq/L (136-145) L 10/13/18 16:05 Potassium 6.2 mEq/L (3.5-5.1) H 10/13/18 16:05 Chloride 96 mEq/L (98-107) L 10/12/18 17:23 Carbon Dioxide 16 mEq/L (23-29) L 10/13/18 16:05 BUN 73 mg/dL (8-23) H 10/13/18 16:05 Creatinine 3.13 mg/dL (0.70-1.30) H 10/13/18 16:05 Est GFR ( Amer) 23 (> 60) L 10/13/18 16:05 Est GFR (Non-Af Amer) 19 (> 60) L 10/13/18 16:05 Glucose 120 mg/dL (70-105) H 10/13/18 16:05 POC Glucose 134 mg/dL (70-99) H 10/12/18 22:18 Calculated Osmolality 279 (280-300) L 10/12/18 17:23 Lactic Acid 3.1 mmol/L (0.5-2.2) H 10/13/18 16:05 Uric Acid 8.5 mg/dL (2.3-7.6) H 10/13/18 16:05 Calcium 8.3 mg/dL (8.6-10.3) L 10/13/18 16:05 Phosphorus 6.5 mg/dL (2.7-4.5) H 10/13/18 04:18 AST 959 Units/L (13-39) H 10/12/18 22:54 ALT 897 Units/L (7-52) H 10/12/18 22:54 Alkaline Phosphatase 176 Units/L (34-104) H 10/12/18 22:54 Troponin I 0.22 ng/mL (< 0.04) H* 10/13/18 07:20 Serum Total Protein 5.6 g/dL (6.4-8.9) L 10/12/18 22:54 Albumin 3.2 g/dL (3.5-5.7) L 10/12/18 22:54 Urine Clarity Cloudy (Clear) A 10/12/18 21:48 Urine Protein 100 mg/dL (Neg-Trace) H 10/12/18 21:48 Urine Blood Large (Negative) H 10/12/18 21:48 Ur Leukocyte Esterase Moderate (Negative) H 10/12/18 21:48 Urine Microscopic RBC 5-15 per hpf (0-3) H 10/12/18 21:48 Urine Microscopic WBC 15-30 per hpf (0-3) H 10/12/18 21:48 Ur Squamous Epith Cells Many per lpf (None-Few) H 10/12/18 21:48 Urine Yeast Few per hpf (None Seen) H 10/12/18 21:48 Ur Culture Indicated? YES (NO) A 10/12/18 21:48 - Microbiology Findings Microbiology Findings: Microbiology, Last 48 Hours 10/12/18 21:48 Urine Culture - Preliminary Urine,Clean Catch Culture is incubating. 10/12/18 20:46 Blood Culture - Preliminary Peripheral Venipuncture Culture is incubating and being continuously monitored for growth. Final report to follow. 10/12/18 20:46 Blood Culture - Preliminary Peripheral Venipuncture Culture is incubating and being continuously monitored for growth. Final report to follow. - Clinical Findings Intake & Output: Intake & Output 10/13/18 10/13/18 10/13/18 07:59 15:59 23:59 Intake Total 975 / 1485.1 410.1 / 1485.1 100 / 1485.1 Output Total 50 / 105 55 / 105 Balance 925 / 1380.1 410.1 / 1380.1 45 / 1380.1 Weight 82.8 kg - Attending Attestation I saw and evaluated this patient and my medical decision-making was reviewed with the Resident Physician. I agree with the documented findings, disposition and treatment plan as described except to the extent set forth below. We independently had [id number] contact with the patient Patient seen and examined at bedside Labs, radiology, chart personally reviewed. Management was reviewed during multidisciplinary critical care rounds. INFERTILITY MEDICAL ASSISTANT: Patient has baseline dementia now with the acute confusional episode suggestive of delirium complicated by some episodic lethargic most likely due to toxic/metabolic encephalopathy Pulm: Patient has a supple oxygenation and ventilation V/Q mismatch is stable patient on broad-spectrum antibiotics for C. difficile colitis no clinical evidence of pneumonia Cards: Patient has chronic systolic heart failure currently does not have any signs of fluid overload need to follow closely as patient is getting fluid associated and bicarbonate drip for his electrolyte imbalance patient might develop pulmonary edema. FEN-GI: Advance diet as tolerated will hold off for feeding today Renal: Patient developed acute kidney injury most likely sepsis induced ATN on stage III chronic kidney disease patient has severe hyperkalemia and acidosis will start on bicarbonate drip patient is a poor candidate for dialysis. Nephrology on board to spoke with family and it was agreed patient will not undergo dialysis if he does not turn around with this conservative management patient will be transitioned to comfort care. ID: To cover with antibiotics for severe C. difficile colitis. Heme/Onc: Labs reviewed Endo: Glucose Monitored Integ/MSK: Skin Care per routine ICU Nursing Protocol to prevent ulcers. Lines: All lines examined without evidence of infection : Dispo: [id number] after extensive discussion with the family CODE:[id number]
[2018-10-13] MEDS ORDERED: Furosemide 40 MG TABLET PO SCH (08:00)
[2018-10-13] MEDS ORDERED: Sodium Bicarbonate 50 MEQ/50 ML VIAL IVP ONE (08:00)
[2018-10-13] MEDS: MetroNIDAZOLE 500 MG/100 ML 500 MG/100 ML BAG IVPB SCH ×3 (08:04→23:00)
[2018-10-13] MEDS: *HR* Dextrose 50 % in Water (Syg) 50 ML SYRINGE IVP ONE (08:30)
[2018-10-13] MEDS: Finasteride 5 MG TABLET PO SCH (08:32)
[2018-10-13] MEDS: Aspirin Enteric Coated 325 MG Tablet PO SCH (08:32)
[2018-10-13] MEDS: Metoprolol XL (24 HR) Succ 50 MG TAB.ER.24H PO SCH (08:32)
[2018-10-13 08:33] LABS: Calcium 8.2 mg/dL (8.6-10.3); Potassium 6.6 mEq/L (3.5-5.1)
[2018-10-13] MEDS ORDERED: Multivit/Ca/Min/Fe/FA 1 TAB TABLET PO SCH (09:00)
[2018-10-13] MEDS ORDERED: Spironolactone 25 MG TABLET PO SCH (09:00)
[2018-10-13] MEDS ORDERED: Cholecalciferol (D-3) 1,000 UNIT (25MCG) TABLET PO SCH (09:00)
[2018-10-13] MEDS ORDERED: CALCIUM PO SCH (09:00)
[2018-10-13] MEDS ORDERED: Cyanocobalamin (B-12) 1,000 MCG TABLET PO SCH (09:00)
[2018-10-13] MEDS ORDERED: metroNIDAZOLE 500 MG TABLET PO SCH (09:00)
[2018-10-13] MEDS ORDERED: VIT D PO SCH (09:00)
[2018-10-13 10:53] LABS: Calcium 8.3 mg/dL (8.6-10.3); Potassium 5.7 mEq/L (3.5-5.1)
[2018-10-13] MEDS: Vancomycin 500 MG, Sodium Chloride IRRigation 250 ML RC SCH ×4 (11:10→17:19)
--- NOTE | 2018-10-13 12:42 | Palliative - Consult Note ---
Date of Encounter: 10/13/18 Time of Encounter: 11:45 - Assessment and Plan (1) Altered mental status Current Visit: Yes Status: Acute Assessment and plan: Patient remains altered at this time. Will monitor closely for improvement with continued medical treatment for his VANESSA/hypovolemia/Cdiff infection. Qualifiers: Altered mental status type: unspecified Qualified Code(s): R41.82 - Altered mental status, unspecified (2) Goals of care, counseling/discussion Current Visit: Yes Status: Acute Assessment and plan: Meeting this am with patient's 3 children (2 sons/1 daughter), including Sandro SONYA Landa. Dr. Lundberg attended as well as primary nurse Shabnam. Family wa s updated on clinical status. Goals of care discussed. Patient had lived alone prior to initial c-diff infection. 2 sons both live within a few minutes of him, daughter resides in [place], [place]. Patient is , approx 10 yrs ago after finding of metastatic breast cancer. He is cared for by [facility] from [facility]. Only medical equipment utilized is walker. Son states day before yesterday, he took patient to therapy and for haircut and he seemed ok. They do all acknowledge that his appetite is poor and main intake of nutrition is ensure. He does have some form of adv directive in place - all state that Sandro is POA, I have asked him to bring these forms in for us to review. All state that patient never really made wishes known to them as far as major healthcare decisions. Family acknowledged that Dr. Berry already had thorough conversation last night regarding fragility of patient, possible complications and code status. They are all in agreement to keep patient at DNR-Arrest, and are ok with short term intubation. They state that if patient did not improve or could not be weaned off vent, they would not want tracheostomy/bridal sales consultant life support. Dr. Lundberg has informed them patient is not a good bridal sales consultant dialysis patient, and even temporary dialysis would be a last resort. Attempting other medical management at this time. They are aware that he is fragile, and has the potential to deteriorate further. If he does improve, I discussed that it is likely he will require a longer rehab stay. He was previously at [facility] in [facility]. They state he has also been at the [facility] for [facility] previously,, although does not appear he has a service connected disability. Total time with family meeting, care and coordination with other providers 45 min. Palliative will continue to follow clinical course closely. (3) Palliative care encounter Current Visit: Yes Status: Acute (4) Clostridium difficile infection Current Visit: Yes Status: Acute Assessment and plan: Receiving Flagyl IV and Vanc enemas - not cooperative with po medications at th is time (5) VANESSA (acute kidney injury) Current Visit: Yes Status: Acute Assessment and plan: [facility] following closely. Dr. Lundberg discussed plan with family this am. (6) CHF (congestive heart failure) Current Visit: Yes Status: Chronic Qualifiers: Heart failure type: unspecified Heart failure chronicity: chronic Qualified Code(s): I50.9 - Heart failure, unspecified Palliative-CN HPI - Data of Consult Requesting Physician: Saqib Berry MD [facility] - Consult Narrative History of present illness: Mr. Landa is a 88 year old male who presented to hospital with complaints of weakness, altered mental status, decreased urinary output. REportedly, upon assessment his home health nurse noted b/p in 60's, and minimally responsive. EMS was called and brought to hospital. He was found upon workup to have hyperkalemia (6.6) , hyponatremia (124), elevated creatinine (2.82). Patient has had a recent C-difficile infection, and went to rehab for a few weeks before returning home. He had [facility] care following. He was admitted and began on treatment for C-diff/sepsis, and fluid resuscitation was limited r/t patient h/o CHF. He was started on Albumin. He refused to take oral Kayexelate, and this had to be changed to rectal administration. Nephrology was consulted and have seen patient already today. Patient past medical history includes: CHF s/p pacer/AICD initially from 2005, CAD, renal disease (stage unknown). We do not have [facility] records yet to confirm/ Upon my visit, patient is resting on his side with eyes closed, and appears in no acute distress. He awakens easily, but has mumbling speech difficult to understand,, and will not follow commands. He becomes agitated with assessment. 3 children are at the bedside. CC: Saqib Berry MD - Time Spent with Patient Time: Total time spent is greater than 50% in coordination of care (as documented) at patient's floor/unit and/or counseling patient: Time with patient: 45 minutes Past Med Surg Social Fam HX - Past Medical History Medical history: CHF, coronary artery disease, dementia, renal disease (CKD stage 2) Additional medical history: Not assessable- patient unsure Psychiatric history: no psych history - Past Surgical History Surgical History: angioplasty/stent, pacemaker/AICD - Social History Smoking Status: Never smoker Smokeless Tobacco Status: No Alcohol use: none Drug use: none - Family History Mother History Unknown: Yes Living Status: Father History Unknown: Yes Living Status: Medications and Allergies Allopurinol [Zyloprim 100 MG] 200 mg PO DAILY 10/12/18 [History] Aspirin [Ecotrin] 325 mg PO DAILY 10/12/18 [History] Atorvastatin Calcium [Lipitor] 10 mg PO HS 10/12/18 [History] Bisacodyl [Woman's Laxative] 5 mg PO DAILY PRN 10/12/18 [History] Calcium Carbonate/Vitamin D3 [Calcium 600 + Vit D Tablet] 1 each PO DAILY 0 10/12/18 [History] Cholecalciferol (D-3) [Vitamin D] 1,000 unit PO DAILY 10/12/18 [History] Ciprofloxacin HCl [Cipro] 500 mg PO BID 10/12/18 [History] Cyanocobalamin (B-12) [Vitamin B12] 1,000 mcg PO DAILY 10/12/18 [History] Docusate Sodium [Dulcolax Stool Softener] 200 mg PO DAILY PRN 10/12/18 [History] Ferrous Gluconate 324 mg PO DAILY 10/12/18 [History] Finasteride [Proscar] 5 mg PO DAILY 10/12/18 [History] Furosemide [Lasix] 40 mg PO BID 10/12/18 [History] Lactobac #2-S. Therm-Bifido #1 [Visbiome 112.5 Billion Capsule] 1 each PO DAILY 10/12/18 [History] Lisinopril [Zestril] 10 mg PO DAILY 10/12/18 [History] Melatonin [Melatin] 9 mg PO HS 10/12/18 [History] Metoprolol Succinate 100 mg PO DAILY 10/12/18 [History] Multivit-Min/FA/Lycopen/Lutein [Senior Tabs] 1 each PO DAILY 10/12/18 [History] Nitroglycerin [Nitrostat] 0.4 mg SL PRN PRN 10/12/18 [History] Omeprazole [PriLOSEC] 20 mg PO DAILY 10/12/18 [History] Polyethylene Glycol 3350 [MiraLAX] 17 gm PO DAILY 10/12/18 [History] Potassium Chloride [Klor-Con 10] 10 meq PO DAILY 10/12/18 [History] Sennosides [Evac-U-Gen] 8.6 mg PO BID PRN 10/12/18 [History] Spironolactone [Aldactone] 12.5 mg PO DAILY 10/12/18 [History] Tamsulosin HCl [Flomax] 0.8 mg PO HS 10/12/18 [History] metroNIDAZOLE [Metronidazole] 500 mg PO BID 10/12/18 [History] Allergy/AdvReac Type Severity Reaction Status Date / Time No Known Allergies Allergy Unverified 05/21/15 08:25 ROS unobtainable: due to mental status Palliative Care-Exam - Constitutional Vitals: Temp Pulse Resp BP Pulse Ox 97.7 F 66 18 110/67 98 10/13/18 12:29 10/13/18 11:00 10/13/18 11:00 10/13/18 11:00 10/13/18 11:00 General appearance: Present: no acute distress - Head Head Exam: Present: normal inspection, normocephalic - Eye Eye exam: Present: normal appearance, PERRL - Respiratory Respiratory exam: Present: CTAB - Cardiovascular Cardiovascular exam: Present: bradycardia, +S1, +S2 - GI/Abdominal Exam GI/Abdominal exam: Present: normal bowel sounds, soft - Catheter Type: Urethral (Lunsford) Additional comments: Small amount clear dennis urine noted in catheter tubing - Extremities Exam Extremities exam: Present: normal capillary refill Additional comments: 1+ bilateral lower extremity edema - Neurological Exam Neurological exam: Present: alert Additional comments: Some agitation/restlessness with assessment. Would not follow commands for me. Speech mumbled and difficult to understand. - Skin Skin exam: Present: dry, warm Internal Medicine - CN: Reslt - Labs CBC & Chem 7: 10/13/18 04:18 10/13/18 10:16 Labs: Short CBC 10/12/18 10/13/18 Range/Units 17:23 04:18 WBC 12.6 H 11.9 H (4.3-11.1) K/mcL Hgb 9.7 L 9.7 L (12.9-16.9) g/dL Hct 29.9 L 29.8 L (37.5-50.1) % Plt Count 241 234 (140-400) K/mcL Neutrophils # 10.4 H 10.4 H (1.6-8.9) K/mcL BMP 10/12/18 10/12/18 10/12/18 17:23 20:46 22:54 Sodium 124 L 125 L Potassium 6.6 H* 5.9 H 5.8 H Chloride 96 L 98 Carbon Dioxide 15 L 14 L BUN 66 H 66 H Creatinine 2.82 H 2.84 H Glucose 129 H 108 H Calcium 8.6 8.4 L 10/13/18 10/13/18 10/13/18 04:18 07:20 10:16 Sodium 126 L 128 L 131 L Potassium 6.5 H* 6.6 H* 5.7 H Chloride 99 99 99 Carbon Dioxide 15 L 15 L 19 L BUN 68 H 73 H 74 H Creatinine 2.86 H 3.02 H 3.10 H Glucose 119 H 120 H 125 H Calcium 8.2 L 8.2 L 8.3 L Cardiac Enzymes 10/12/18 10/12/18 10/13/18 Range/Units 17:23 22:54 01:36 Troponin I 0.19 H* 0.20 H* 0.21 H* (< 0.04) ng/mL 10/13/18 Range/Units 07:20 Troponin I 0.22 H* (< 0.04) ng/mL Liver Function 10/12/18 Range/Units 22:54 Total Bilirubin 0.4 (0.3-1.0) mg/dL Direct Bilirubin 0.2 (0.0-0.2) mg/dL AST 959 H (13-39) Units/L ALT 897 H (7-52) Units/L Alkaline Phosphatase 176 H (34-104) Units/L Albumin 3.2 L (3.5-5.7) g/dL Urine 10/12/18 Range/Units 21:48 Urine Color Yellow (Yellow) Urine Clarity Cloudy A (Clear) Urine pH 5.0 (5.0-8.0) pH Units Ur Specific [place] 1.019 (1.010-1.025) Urine Protein 100 H (Neg-Trace) mg/dL Urine Glucose (UA) Normal (Normal) mg/dL - ABG Interpretation ABG results: PT/INR, D-dimer PT 15.3 Seconds (9.4-12.1) H 10/12/18 22:54 - Impressions Impressions Chest X-Ray 10/12/18 17:11 IMPRESSION: Pulmonary vascular congestion. D/ / Mariano Rogers MD / Mariano Rogers MD Interpreting Provider: Mariano Rogers MD Retroperitoneum Ultrasound 10/12/18 19:30 IMPRESSION: 1. No obstructive uropathy. 2. Lunsford catheter in place. 3. Ascites. D/ / Adilson Early MD / Adilson Early MD Interpreting Provider: Adilson Early MD Consult Discharge Plan - Plan [facility]errals: [facility] [Primary Care Provider] - Palliative Quality Palliative Quality: Screen for Code Status: Yes, Screen for Goals of Care: Yes, Screen for Pain: Yes, If Pain Regimen Started, Initiate Bowel Regimen: NA, Screen for Nausea/Vomitting: Yes Code Status: 10/12/18 21:15 Resuscitation Status: Active [RES] Routine Comment: Resuscitation Status: [id number] 10/12/18 21:40 Resuscitation Status: Active [RES] Routine Comment: short term intubation OK Resuscitation Status: DNR-Comfort Care-Arrest
[2018-10-13] MEDS: Vancomycin Oral Soln 125 MG/2.5 ML UDC PO SCH ×3 (14:50→20:03)
--- NOTE | 2018-10-13 15:22 | Event Note ---
Date of Encounter: 10/13/18 Time of Encounter: 14:30 Spoke with Mr. Landa's daughter and son explained about the whole critical illness and possible trajectory of the disease in the broader scheme of things intubation and mechanical ventilation would not be useful if the kidney injury cannot be reversed as kidneys maintain her fluid balance. Moreover the last few months patient is less mobile his dementia got worse in the setting where mechanical ventilation patient should be on a lot of sedatives and hypnotics with this generalized muscle weakness liberation from the mechanical ventilation can be a prolonged process after discussing with the risk and benefit of mechanical ventilation family decided to keep him DNR a with DO NOT INTUBATE. We will do all this resuscitative measures until that point. CODE STATUS was changed to DNR a DNI. Outcome of the meeting was complicated with his nurse.
--- NOTE | 2018-10-13 15:59 | Nephrology Consult Note ---
Date of Encounter: 10/13/18 Time of Encounter: 12:00 Assessment and Plan (1) VANESSA (acute kidney injury) Current Visit: Yes Status: Acute Elevated SCr in the setting of c.diff colitis, decerased po intake with likely sepsis with hypotension Agree with holding all diuretics and nephrotoxins if possible Discussed at length worsening renal fxn and the fact pt is not a great candidate for MEAT WASHER given his dementia and advanced age. Family agree with try all medical therapies and reassess in the am Will obtain records from the [facility] to see baseline renal fxn Will check urine studies Will check CPK and uric acid levels MEAT WASHER not indicated at this time (2) Hyponatremia Current Visit: Yes Status: Acute Likely due to hypovolemia, will improve with IVF with NS (3) Hyperkalemia Current Visit: Yes Status: Acute Potassium due to worsening renal fxn, potassium supplements and aldactone Hold off all these meds Kayexalate 15g given per rectum, will give another 30grams now might need baicrab gtt if persistent (4) C. difficile colitis Current Visit: Yes Status: Acute History of Present Illness - Reason for Consult Consult date: 10/13/18 Acute Kidney Injury, hyperkalemia Requesting physician: Neena Rausch - History of Present Illness 88 y o male with PMH of CAD, CHF, dementia and "stage 2/3 CKD" per family admitted after a recent hospital stay at the [facility] for c.diff colitis and now presents with generalized weakness and altered mental status. He was found very hypotensive down to 60s systolic before presenting here. SCr noted at 2.82, GFR 21, baseline not available to us but family thinks had CKD stage 2 or 3. Potassium noted at 6.6 as well. He received approx. 3liters fluids overnight and refused kayexalate orally with 15grams given this am. Pt also received 2 albumin boluses as well. Pt was noted taking potassium supplements, aldactone, lasix and lisinopril prior to this admission. Pt seen and examined with his three children present at bedside. Pt did not participate in our discussions, choosing to sleep through it Past Med Surg Social Fam HX - Past Medical History Medical history: CHF, coronary artery disease, dementia, renal disease (CKD stage 2) Additional medical history: Not assessable- patient unsure Psychiatric history: no psych history - Past Surgical History Surgical History: angioplasty/stent, pacemaker/AICD - Social History Smoking Status: Never smoker Smokeless Tobacco Status: No Alcohol use: none Drug use: none - Family History Mother History Unknown: Yes Living Status: Father History Unknown: Yes Living Status: Medications and Allergies Allopurinol [Zyloprim 100 MG] 200 mg PO DAILY 10/12/18 [History] Aspirin [Ecotrin] 325 mg PO DAILY 10/12/18 [History] Atorvastatin Calcium [Lipitor] 10 mg PO HS 10/12/18 [History] Bisacodyl [Woman's Laxative] 5 mg PO DAILY PRN 10/12/18 [History] Calcium Carbonate/Vitamin D3 [Calcium 600 + Vit D Tablet] 1 each PO DAILY 10/12/18 [History] Cholecalciferol (D-3) [Vitamin D] 1,000 unit PO DAILY 10/12/18 [History] Ciprofloxacin HCl [Cipro] 500 mg PO BID 10/12/18 [History] Cyanocobalamin (B-12) [Vitamin B12] 1,000 mcg PO DAILY 10/12/18 [History] Docusate Sodium [Dulcolax Stool Softener] 200 mg PO DAILY PRN 10/12/18 [History] Ferrous Gluconate 324 mg PO DAILY 10/12/18 [History] Finasteride [Proscar] 5 mg PO DAILY 10/12/18 [History] Furosemide [Lasix] 40 mg PO BID 10/12/18 [History] Lactobac #2-S. Therm-Bifido #1 [Visbiome 112.5 Billion Capsule] 1 each PO DAILY 10/12/18 [History] Lisinopril [Zestril] 10 mg PO DAILY 10/12/18 [History] Melatonin [Melatin] 9 mg PO HS 10/12/18 [History] Metoprolol Succinate 100 mg PO DAILY 10/12/18 [History] Multivit-Min/FA/Lycopen/Lutein [Senior Tabs] 1 each PO DAILY 10/12/18 [History] Nitroglycerin [Nitrostat] 0.4 mg SL PRN PRN 10/12/18 [History] Omeprazole [PriLOSEC] 20 mg PO DAILY 10/12/18 [History] Polyethylene Glycol 3350 [MiraLAX] 17 gm PO DAILY 10/12/18 [History] Potassium Chloride [Klor-Con 10] 10 meq PO DAILY 10/12/18 [History] Sennosides [Evac-U-Gen] 8.6 mg PO BID PRN 10/12/18 [History] Spironolactone [Aldactone] 12.5 mg PO DAILY 10/12/18 [History] Tamsulosin HCl [Flomax] 0.8 mg PO HS 10/12/18 [History] metroNIDAZOLE [Metronidazole] 500 mg PO BID 10/12/18 [History] Allergy/AdvReac Type Severity Reaction Status Date / Time No Known Allergies Allergy Unverified 05/21/15 08:25 Review of Systems ROS unobtainable: due to mental status Exam - Vital Signs Vital signs: Initial Vital Signs Temp Pulse Resp BP Pulse Ox 98.9 F 57 18 93/62 100 10/12/18 17:08 10/12/18 17:08 10/12/18 17:08 10/12/18 17:08 10/12/18 17:08 Vital Signs - Last 8 Hours Temp Pulse Resp BP Pulse Ox 10/13/18 14:00 66 22 112/94 94 10/13/18 13:00 61 17 97/52 97 10/13/18 12:29 97.7 F 10/13/18 12:00 64 21 107/73 95 10/13/18 11:00 66 18 110/67 98 10/13/18 10:00 67 21 116/54 97 10/13/18 09:00 59 21 119/71 98 10/13/18 08:00 59 19 105/90 98 Intake and Output 10/12/18 10/13/18 10/13/18 23:59 07:59 15:59 Intake Total 2059. 975 / 1385.1 410.1 / 1385.1 Output Total 50 / 50 50 / 50 Balance 2009. 925 / 1335.1 410.1 / 1335.1 Intake: IV Fluids 975 / 1385.1 410.1 / 1385.1 HumuLIN R 10 UNIT In 0.9 % 10..1 10. / 10.1 Sodium Chloride 10 ML @ 1212 mls/hr IV ONCE STA Rx#: [id number] 0.9 % Sodium Chloride 1,000 ML 1999 875 / 875 @ 100 mls/hr IVC .Q10H [facility] Rx#: [id number] ALBURX 5% 12.5 gm In 250 ml @ 250 / 250 60 mls/hr IVPB ONCE ONE Rx#: [id number] Calcium Gluconate 1gm/50mL 1 gm 50 / 50 50 / 50 In 50 ml @ 100 mls/hr IVPB ONCE ONE Rx#:[id number] Flagyl Premix 500 MG/100 ML 500 100 / 200 100 / 200 mg In 100 ml @ 100 mls/hr IVPB Q8HR [facility] Rx#:[id number] Oral 0 / 0 0 / 0 Output: Catheter 50 / 50 50 / 50 Other: Stool Size Small Large Large Stool Consistency liquid loose Stool Characteristics Mucoid Stool Color Brown Brown Brown Green # Bowel Movement Diapers 1 Weight 91.9 kg 82.8 kg Blood Glucose* 134 136 129 Patient Weight 10/13/18 23:59 Weight 82.8 kg - General Appearance General appearance: chronically ill, fatigue, frail EENT: ATNC, mucous membranes dry Neck: no JVD, supple Additional Comments: good aeration ant bilat Cardiology: edema (LE bilat), normal S1, normal S2 Gastrointestinal: no tenderness, no guarding Integumentary: warm and dry Neurologic: confused, disoriented Musculoskeletal: no deformities Psychiatric: mood/affect appropriate, cooperative Results - Lab Results 10/13/18 04:18 10/13/18 10:16 Most recent lab results 10/13/18 10/13/18 10/13/18 04:18 07:20 10:16 Calcium 8.2 L 8.2 L 8.3 L Phosphorus 6.5 H Magnesium 2.2 Consult Discharge Plan - Plan Referrals: [facility] [Primary Care Provider] -
[2018-10-13 16:16] LABS: Basophils % 0.1 %; Hematocrit 29.9 % (37.5-50.1); Hemoglobin 9.6 g/dL (12.9-16.9); Immature Granulocytes % 4.7 % (0-4); Lymphocytes # 0.4 K/mcL (0.6-4.6); Lymphocytes % 2.7 %; Mean Corpuscular HGB Conc 32.1 g/dL (31.6-35.5); Mean Corpuscular Hemoglobin 29.8 pg (28.0-33.3); Mean Corpuscular Volume 92.9 fL (83.0-100.0); Mean Platelet Volume 10.5 fL (9.4-12.4); Monocytes # 0.7 K/mcL (0.0-1.3); Neutrophils # 12.9 K/mcL (1.6-8.9); Nucleated Red Blood Cells 0.1 /100 WBC (0); Platelet Count 202 K/mcL (140-400); Red Blood Count 3.22 M/mcL (4.19-5.50); Red Cell Distribution Width 16.2 % (11.5-14.5); Segmented Neutrophils % 87.5 %; White Blood Count 14.8 K/mcL (4.3-11.1)
[2018-10-13 16:35] LABS: Calcium 8.3 mg/dL (8.6-10.3); Potassium 6.2 mEq/L (3.5-5.1)
[2018-10-13 16:49] LABS: Uric Acid 8.5 mg/dL (2.3-7.6)
[2018-10-13] MEDS: Sodium Bicarbonate 150 MEQ in D5% in Water 1,000 ML IVC SCH (18:25)
[2018-10-13] MEDS: 0.9 % Sodium Chloride 1,000 ML IVC SCH ×2 (19:35→21:33)
[2018-10-13 20:02] LABS: Calcium 8.2 mg/dL (8.6-10.3); Potassium 6.1 mEq/L (3.5-5.1)
[2018-10-13 20:32] LABS: Sodium, Urine 18.1 mEq/L
[2018-10-14 00:01] LABS: Calcium 7.9 mg/dL (8.6-10.3); Potassium 5.6 mEq/L (3.5-5.1)
[2018-10-14 03:08] LABS: Basophils % 0.1 %; Hematocrit 27.5 % (37.5-50.1); Hemoglobin 8.8 g/dL (12.9-16.9); Immature Granulocytes % 3.1 % (0-4); Lymphocytes # 0.6 K/mcL (0.6-4.6); Lymphocytes % 3.6 %; Mean Corpuscular Hemoglobin 29.3 pg (28.0-33.3); Mean Corpuscular Volume 91.7 fL (83.0-100.0); Mean Platelet Volume 10.8 fL (9.4-12.4); Monocytes % 6.2 %; Neutrophils # 13.3 K/mcL (1.6-8.9); Nucleated Red Blood Cells 0.1 /100 WBC (0); Platelet Count 190 K/mcL (140-400); Red Cell Distribution Width 16.3 % (11.5-14.5); White Blood Count 15.3 K/mcL (4.3-11.1)
[2018-10-14 03:27] LABS: Calcium 7.9 mg/dL (8.6-10.3); Potassium 5.3 mEq/L (3.5-5.1)
[2018-10-14] MEDS: *HR* Heparin 5,000 UNIT/ML VIAL SQ SCH ×2 (05:00→18:44)
[2018-10-14] MEDS: Sodium Bicarbonate 150 MEQ in D5% in Water 1,000 ML IVC SCH ×2 (06:30→17:52)
[2018-10-14] MEDS: Finasteride 5 MG TABLET PO SCH (08:05)
[2018-10-14] MEDS: Aspirin Enteric Coated 325 MG Tablet PO SCH (08:05)
[2018-10-14] MEDS: Vancomycin Oral Soln 125 MG/2.5 ML UDC PO SCH ×4 (08:07→20:38)
[2018-10-14] MEDS: MetroNIDAZOLE 500 MG/100 ML 500 MG/100 ML BAG IVPB SCH ×3 (08:08→23:02)
--- NOTE | 2018-10-14 09:12 | Nephrology Progress Note ---
Date of Encounter: 10/14/18 Time of Encounter: 09:08 - Assessment and Plan (1) VANESSA (acute kidney injury) Current Visit: Yes Status: Acute Elevated SCr in the setting of c.diff colitis, decerased po intake with likely sepsis with hypotension that is improving with fluids. Agree with holding all diuretics and nephrotoxins if possible [facility] to [facility] baseline renal fxn requested. Renal function not improving yet. Patient remains oliguric, but with improving urine output. LOG PEELER not indicated at this time (2) Hyponatremia Current Visit: Yes Status: Acute Likely due to hypovolemia,improvingwith IVF (3) Hyperkalemia Current Visit: Yes Status: Acute Improving. (4) C. difficile colitis Current Visit: Yes Status: Acute per primary team. WBC continues to rise. Subjective Principal diagnosis: VANESSA Interval history: Patient remains pleasantly demented. He seems comfortable. He has no complaints. He denies pain. His ROS seems to be stable, but due to his mental state complete ROS is unreliable. Objective - Vital Signs Vital signs: Vital Signs Temp Pulse Resp BP Pulse Ox 10/14/18 08:00 73 21 115/70 95 10/14/18 07:00 72 18 111/72 95 10/14/18 06:00 75 22 116/66 98 10/14/18 05:00 72 20 122/55 99 10/14/18 04:05 97.8 F 68 17 106/73 99 10/14/18 03:02 71 18 117/68 96 10/14/18 02:22 73 10/14/18 02:04 72 20 108/90 99 10/14/18 01:00 69 12 98/66 99 10/14/18 00:00 97.5 F L 70 20 102/59 97 10/13/18 23:00 68 18 104/91 97 10/13/18 22:49 67 10/13/18 22:00 71 20 97/76 98 10/13/18 21:02 70 17 115/65 98 10/13/18 20:03 69 15 121/69 96 10/13/18 19:00 97.2 F L 70 19 110/67 96 10/13/18 18:46 66 10/13/18 18:22 67 20 113/65 96 10/13/18 17:00 65 17 86/57 97 10/13/18 16:27 97.5 F L 10/13/18 16:00 64 21 112/69 97 10/13/18 15:00 69 15 96/61 93 10/13/18 14:00 66 22 112/94 94 10/13/18 13:00 61 17 97/52 97 10/13/18 12:29 97.7 F 10/13/18 12:00 64 21 107/73 95 10/13/18 11:00 66 18 110/67 98 10/13/18 10:00 67 21 116/54 97 Intake and Output 10/13/18 10/14/18 10/14/18 23:59 07:59 15:59 Intake Total 100 / 1485.1 1250 / 1250 Output Total 105 / 155 25 / 25 Balance -5 / 1330.1 1225 / 1225 Intake: IV Fluids 100 / 1485.1 1250 / 1250 Sodium Bicarbonate 150 MEQ In 1150 / 1150 Dextrose 5% 1,000 ML @ 100 mls/ hr IVC .[id number] [facility] Rx#: [id number] Flagyl Premix 500 MG/100 ML 500 100 / 300 100 / 100 mg In 100 ml @ 100 mls/hr IVPB Q8HR [facility] Rx#:[id number] Output: Catheter 105 / 155 25 / 25 Other: Stool Size Small Stool Consistency loose Stool Color Brown Weight 83 kg - General Appearance General appearance: Present: well-developed, well-nourished, chronically ill, frail EENT: Present: ATNC Neck: Present: supple Respiratory: Present: course breath sounds Cardiology: Present: edema, regular rate Gastrointestinal: Present: normoactive bowel sounds, no tenderness Integumentary: Present: warm and dry Neurologic: Present: confused Additional Comments: Alert Musculoskeletal: Present: no cyanosis Psychiatric: Present: mood/affect appropriate, cooperative - Lab 10/14/18 03:00 10/14/18 03:00 Most recent lab results 10/13/18 10/14/18 22:23 03:00 Calcium 7.9 L 7.9 L Consult Discharge Plan - Plan Referrals: [facility] [Primary Care Provider] -
[2018-10-14] MEDS: Metoprolol XL (24 HR) Succ 50 MG TAB.ER.24H PO SCH (09:16)
--- NOTE | 2018-10-14 09:23 | Pulmonology Progress Note ---
<Linh Phillips - Last Filed: 10/14/18 15:38> Date of Encounter: 10/14/18 Time of Encounter: 09:22 Assessment and Plan (1) Severe sepsis Current Visit: Yes Status: Acute * Likely secondary to C. difficile * Patient continues on rectal vancomycin, will switch to oral given he is tolerating orals at this time, continue IV Flagyl, with plan to start tomorrow * Patient continues on a bicarbonate drip, will give albumin. We will continue to monitor blood pressure and acidosis throughout the day * Advanced to soft renal diet * Patient is stable for transfer to [facility] (2) C. difficile colitis Current Visit: Yes Status: Acute * Antibiotic coverage as above (3) CHF (congestive heart failure) Current Visit: Yes Status: Chronic * Patient does have an AICD and history of CHF * Patient saturating well and 2 L nasal cannula Qualifiers: Heart failure type: unspecified Heart failure chronicity: chronic Qualified Code(s): I50.9 - Heart failure, unspecified (4) Acute on chronic kidney failure Current Visit: Yes Status: Acute * Nephrology following and appreciate their recommendations * At this time the patient has had a minimal urinary output, slightly improved yesterday and does have worsening of his creatinine today up to 3.24, up from 2.84 yesterday * His hyperkalemia has improved * Nephrology does not recommend hemodialysis at this time, we will continue to monitor urinary output Qualifiers: Acute renal failure type: unspecified Chronic kidney disease stage: unspecified stage Qualified Code(s): N17.9 - Acute kidney failure, unspecified; N18.9 - Chronic kidney disease, unspecified (5) Hyperkalemia Current Visit: Yes Status: Acute * Improved today 5.3, we will continue to monitor. * Nephrology following (6) Goals of care, counseling/discussion Current Visit: Yes Status: Acute * Family has agreed to plan of DNR CCA DNI (7) DVT prophylaxis Current Visit: Yes Status: Acute * On heparin subcutaneous Subjective Principal diagnosis: VANESSA Interval history: Today the patient is confused but alert and cooperative Objective PUL Vital signs: Last Vital Signs Temp 97.8 F 10/14/18 04:05 Pulse 73 10/14/18 08:00 Resp 21 10/14/18 08:00 BP 115/70 10/14/18 08:00 Pulse Ox 95 10/14/18 08:00 General appearance: no acute distress Eyes: nonicteric ENT: oropharynx moist Effort: normal Auscultation: bilateral: diminished breath sounds Cardiovascular: regular rate and rhythm Gastrointestinal: normoactive bowel sounds, non-tender Integumentary: normal Extremities: no cyanosis Musculoskeletal: no deformities non-focal exam, pupils equal and round mood appropriate, affect normal Results - Laboratory Findings CBC and BMP: 10/14/18 03:00 10/14/18 03:00 PT/INR, D-dimer PT 15.3 Seconds (9.4-12.1) H 10/12/18 22:54 Abnormal lab findings: Abnormal lab results WBC 15.3 K/mcL (4.3-11.1) H 10/14/18 03:00 RBC 3.00 M/mcL (4.19-5.50) L 10/14/18 03:00 Hgb 8.8 g/dL (12.9-16.9) L 10/14/18 03:00 Hct 27.5 % (37.5-50.1) L 10/14/18 03:00 RDW 16.3 % (11.5-14.5) H 10/14/18 03:00 Immature Gran % 4.7 % (0-4) H 10/13/18 16:05 Neutrophils # 13.3 K/mcL (1.6-8.9) H 10/14/18 03:00 Lymphocytes # 0.4 K/mcL (0.6-4.6) L 10/13/18 16:05 Nucleated RBCs/100 WBC 0.1 /100 WBC (0) H 10/14/18 03:00 Hypochromasia Present (Not Present) A 10/13/18 04:18 [place] Cells 1+ (Not Present) A 10/13/18 04:18 PT 15.3 Seconds (9.4-12.1) H 10/12/18 22:54 Sodium 130 mEq/L (136-145) L 10/14/18 03:00 Potassium 5.3 mEq/L (3.5-5.1) H 10/14/18 03:00 Chloride 96 mEq/L (98-107) L 10/12/18 17:23 Carbon Dioxide 17 mEq/L (23-29) L 10/14/18 03:00 BUN 76 mg/dL (8-23) H 10/14/18 03:00 Creatinine 3.24 mg/dL (0.70-1.30) H 10/14/18 03:00 Est GFR ( Amer) 22 (> 60) L 10/14/18 03:00 Est GFR (Non-Af Amer) 18 (> 60) L 10/14/18 03:00 Glucose 143 mg/dL (70-105) H 10/14/18 03:00 POC Glucose 147 mg/dL (70-99) H 10/13/18 22:06 Calculated Osmolality 279 (280-300) L 10/12/18 17:23 Lactic Acid 3.1 mmol/L (0.5-2.2) H 10/13/18 16:05 Uric Acid 8.5 mg/dL (2.3-7.6) H 10/13/18 16:05 Calcium 7.9 mg/dL (8.6-10.3) L 10/14/18 03:00 Phosphorus 6.5 mg/dL (2.7-4.5) H 10/13/18 04:18 AST 959 Units/L (13-39) H 10/12/18 22:54 ALT 897 Units/L (7-52) H 10/12/18 22:54 Alkaline Phosphatase 176 Units/L (34-104) H 10/12/18 22:54 Troponin I 0.22 ng/mL (< 0.04) H* 10/13/18 07:20 Serum Total Protein 5.6 g/dL (6.4-8.9) L 10/12/18 22:54 Albumin 3.2 g/dL (3.5-5.7) L 10/12/18 22:54 Urine Clarity Cloudy (Clear) A 10/12/18 21:48 Urine Protein 100 mg/dL (Neg-Trace) H 10/12/18 21:48 Urine Blood Large (Negative) H 10/12/18 21:48 Ur Leukocyte Esterase Moderate (Negative) H 10/12/18 21:48 Urine Microscopic RBC 5-15 per hpf (0-3) H 10/12/18 21:48 Urine Microscopic WBC 15-30 per hpf (0-3) H 10/12/18 21:48 Ur Squamous Epith Cells Many per lpf (None-Few) H 10/12/18 21:48 Urine Yeast Few per hpf (None Seen) H 10/12/18 21:48 Ur Culture Indicated? YES (NO) A 10/12/18 21:48 - Microbiology Findings Microbiology Findings: Microbiology, Last 48 Hours 10/12/18 21:48 Urine Culture - Final Urine,Clean Catch No growth. 10/12/18 20:46 Blood Culture - Preliminary Peripheral Venipuncture Culture is incubating and being continuously monitored for growth. Final report to follow. 10/12/18 20:46 Blood Culture - Preliminary Peripheral Venipuncture Culture is incubating and being continuously monitored for growth. Final report to follow. - Clinical Findings Intake & Output: Intake & Output 10/13/18 10/14/18 10/14/18 23:59 07:59 15:59 Intake Total 100 / 1485.1 1250 / 1250 Output Total 105 / 155 25 / 25 Balance -5 / 1330.1 1225 / 1225 Weight 83 kg Consult Discharge Plan - Plan [facility]: [facility] [Primary Care Provider[facility] - <Mauri Fitzgerald S - Last Filed: 10/14/18 16:45> Date of Encounter: 10/14/18 Objective PUL Vital signs: Last Vital Signs Temp 97.8 F 10/14/18 04:05 Pulse 74 10/14/18 16:00 Resp 23 10/14/18 16:00 BP 107/79 10/14/18 16:00 Pulse Ox 96 10/14/18 16:00 Results - Laboratory Findings CBC and BMP: 10/14/18 03:00 10/14/18 03:00 PT/INR, D-dimer PT 15.3 Seconds (9.4-12.1) H 10/12/18 22:54 Abnormal lab findings: Abnormal lab results WBC 15.3 K/mcL (4.3-11.1) H 10/14/18 03:00 RBC 3.00 M/mcL (4.19-5.50) L 10/14/18 03:00 Hgb 8.8 g/dL (12.9-16.9) L 10/14/18 03:00 Hct 27.5 % (37.5-50.1) L 10/14/18 03:00 RDW 16.3 % (11.5-14.5) H 10/14/18 03:00 Immature Gran % 4.7 % (0-4) H 10/13/18 16:05 Neutrophils # 13.3 K/mcL (1.6-8.9) H 10/14/18 03:00 Lymphocytes # 0.4 K/mcL (0.6-4.6) L 10/13/18 16:05 Nucleated RBCs/100 WBC 0.1 /100 WBC (0) H 10/14/18 03:00 Hypochromasia Present (Not Present) A 10/13/18 04:18 [place] Cells 1+ (Not Present) A 10/13/18 04:18 PT 15.3 Seconds (9.4-12.1) H 10/12/18 22:54 Sodium 130 mEq/L (136-145) L 10/14/18 03:00 Potassium 5.3 mEq/L (3.5-5.1) H 10/14/18 03:00 Chloride 96 mEq/L (98-107) L 10/12/18 17:23 Carbon Dioxide 17 mEq/L (23-29) L 10/14/18 03:00 BUN 76 mg/dL (8-23) H 10/14/18 03:00 Creatinine 3.24 mg/dL (0.70-1.30) H 10/14/18 03:00 Est GFR ( Amer) 22 (> 60) L 10/14/18 03:00 Est GFR (Non-Af Amer) 18 (> 60) L 10/14/18 03:00 Glucose 143 mg/dL (70-105) H 10/14/18 03:00 POC Glucose 147 mg/dL (70-99) H 10/13/18 22:06 Calculated Osmolality 279 (280-300) L 10/12/18 17:23 Lactic Acid 3.1 mmol/L (0.5-2.2) H 10/13/18 16:05 Uric Acid 8.5 mg/dL (2.3-7.6) H 10/13/18 16:05 Calcium 7.9 mg/dL (8.6-10.3) L 10/14/18 03:00 Phosphorus 6.5 mg/dL (2.7-4.5) H 10/13/18 04:18 AST 959 Units/L (13-39) H 10/12/18 22:54 ALT 897 Units/L (7-52) H 10/12/18 22:54 Alkaline Phosphatase 176 Units/L (34-104) H 10/12/18 22:54 Troponin I 0.22 ng/mL (< 0.04) H* 10/13/18 07:20 Serum Total Protein 5.6 g/dL (6.4-8.9) L 10/12/18 22:54 Albumin 3.2 g/dL (3.5-5.7) L 10/12/18 22:54 Urine Clarity Cloudy (Clear) A 10/12/18 21:48 Urine Protein 100 mg/dL (Neg-Trace) H 10/12/18 21:48 Urine Blood Large (Negative) H 10/12/18 21:48 Ur Leukocyte Esterase Moderate (Negative) H 10/12/18 21:48 Urine Microscopic RBC 5-15 per hpf (0-3) H 10/12/18 21:48 Urine Microscopic WBC 15-30 per hpf (0-3) H 10/12/18 21:48 Ur Squamous Epith Cells Many per lpf (None-Few) H 10/12/18 21:48 Urine Yeast Few per hpf (None Seen) H 10/12/18 21:48 Ur Culture Indicated? YES (NO) A 10/12/18 21:48 - Microbiology Findings Microbiology Findings: Microbiology, Last 48 Hours 10/12/18 21:48 Urine Culture - Final Urine,Clean Catch No growth. 10/12/18 20:46 Blood Culture - Preliminary Peripheral Venipuncture Culture is incubating and being continuously monitored for growth. Final report to follow. 10/12/18 20:46 Blood Culture - Preliminary Peripheral Venipuncture Culture is incubating and being continuously monitored for growth. Final report to follow. - Clinical Findings Intake & Output: Intake & Output 10/14/18 10/14/18 10/14/18 07:59 15:59 23:59 Intake Total 1250 / 1840 340 / 1840 250 / 1840 Output Total 25 / 175 150 / 175 Balance 1225 / 1665 190 / 1665 250 / 1665 - Attending Attestation - Attending Attestation I saw and evaluated this patient and my medical decision-making was reviewed with the Resident Physician. I agree with the documented findings, disposition and treatment plan as described except to the extent set forth below. We independently had [id number] contact with the patient Patient seen and examined at bedside Labs, radiology, chart personally reviewed. Management was reviewed during multidisciplinary critical care rounds. DREDGE PIPEMAN: Patient has baseline dementia now with the on and off acute confusional episode suggestive of delirium complicated by some episodic lethargic most likely due to toxic/metabolic encephalopathy Pulm: Patient has a acceptable oxygenation and ventilation V/Q mismatch is stable patient on broad-spectrum antibiotics for C. difficile colitis no clinical evidence of pneumonia Cards: Patient has chronic systolic heart failure currently does not have any signs of fluid overload need to follow closely as patient is getting fluid associated and bicarbonate drip for his electrolyte imbalance patient might develop pulmonary edema. FEN-GI: Advance diet as tolerated w Renal: Patient developed acute kidney injury most likely sepsis induced ATN on stage III chronic kidney disease patient has severe hyperkalemia and acidosis will start on bicarbonate drip patient is a poor candidate for dialysis. Nephrology on board to spoke with family and it was agreed patient will not undergo dialysis if he does not turn around with this conservative management patient will be transitioned to comfort care. 10/14 spoke with nephrology and to candidate for dialysis with worsening serum creatinine and urine output ID: To cover with antibiotics for severe C. difficile colitis. Heme/Onc: Labs reviewed Endo: Glucose Monitored Integ/MSK: Skin Care per routine ICU Nursing Protocol to prevent ulcers. Lines: All lines examined without evidence of infection : Dispo: DNRA-DNI after extensive discussion with the family CODE:[id number]
--- NOTE | 2018-10-14 10:03 | Palliative Progress Note ---
Date of Encounter: 10/14/18 Time of Encounter: 10:00 - Assessment and plan (1) Altered mental status Current Visit: Yes Status: Acute Assessment and plan: Improving - more alert and talkative, but confused. However, patient does realized he is confused. MOnitor Qualifiers: Altered mental status type: unspecified Qualified Code(s): R41.82 - Altered mental status, unspecified (2) Goals of care, counseling/discussion Current Visit: Yes Status: Acute Assessment and plan: Family did decide yesterday eventually to transition from DNR-Arrest to DNR/DNI. No family present at bedside this am. Mental status improved this am. Palliative will continue to follow clinical course. If his condition improves, he will likely need to return to rehab. D/W primary nurse Shabnam Ramesh. If pt condition changes today, will D/W family. Will f/u on Wednesday. (3) Palliative care encounter Current Visit: Yes Status: Acute (4) Clostridium difficile infection Current Visit: Yes Status: Acute (5) VANESSA (acute kidney injury) Current Visit: Yes Status: Acute (6) CHF (congestive heart failure) Current Visit: Yes Status: Chronic Qualifiers: Heart failure type: unspecified Heart failure chronicity: chronic Qualified Code(s): I50.9 - Heart failure, unspecified - Time Spent With Patient Total time spent is greater than 50% in coordination of care (as documented) at patient's floor/unit and/or counseling patient: - Subjective Interval history: Patient much more awake and alert today, pleasantly confused and very talkative. Is able to tell me the names of his children, and he lives in [facility] and is aware he is in "[place]". Renal function slightly worse today,, did have 105ml urine out. Dr. London has seen today and reviewed his note. Family did decide yesterday to transition patient to DNR/DNI, and do not want intubation. VItals stable. - Constitutional Vitals: Abnormal lab results WBC 15.3 K/mcL (4.3-11.1) H 10/14/18 03:00 RBC 3.00 M/mcL (4.19-5.50) L 10/14/18 03:00 Hgb 8.8 g/dL (12.9-16.9) L 10/14/18 03:00 Hct 27.5 % (37.5-50.1) L 10/14/18 03:00 RDW 16.3 % (11.5-14.5) H 10/14/18 03:00 Immature Gran % 4.7 % (0-4) H 10/13/18 16:05 Neutrophils # 13.3 K/mcL (1.6-8.9) H 10/14/18 03:00 Lymphocytes # 0.4 K/mcL (0.6-4.6) L 10/13/18 16:05 Nucleated RBCs/100 WBC 0.1 /100 WBC (0) H 10/14/18 03:00 Hypochromasia Present (Not Present) A 10/13/18 04:18 [place] Cells 1+ (Not Present) A 10/13/18 04:18 PT 15.3 Seconds (9.4-12.1) H 10/12/18 22:54 Sodium 130 mEq/L (136-145) L 10/14/18 03:00 Potassium 5.3 mEq/L (3.5-5.1) H 10/14/18 03:00 Chloride 96 mEq/L (98-107) L 10/12/18 17:23 Carbon Dioxide 17 mEq/L (23-29) L 10/14/18 03:00 BUN 76 mg/dL (8-23) H 10/14/18 03:00 Creatinine 3.24 mg/dL (0.70-1.30) H 10/14/18 03:00 Est GFR ( Amer) 22 (> 60) L 10/14/18 03:00 Est GFR (Non-Af Amer) 18 (> 60) L 10/14/18 03:00 Glucose 143 mg/dL (70-105) H 10/14/18 03:00 POC Glucose 147 mg/dL (70-99) H 10/13/18 22:06 Calculated Osmolality 279 (280-300) L 10/12/18 17:23 Lactic Acid 3.1 mmol/L (0.5-2.2) H 10/13/18 16:05 Uric Acid 8.5 mg/dL (2.3-7.6) H 10/13/18 16:05 Calcium 7.9 mg/dL (8.6-10.3) L 10/14/18 03:00 Phosphorus 6.5 mg/dL (2.7-4.5) H 10/13/18 04:18 AST 959 Units/L (13-39) H 10/12/18 22:54 ALT 897 Units/L (7-52) H 10/12/18 22:54 Alkaline Phosphatase 176 Units/L (34-104) H 10/12/18 22:54 Troponin I 0.22 ng/mL (< 0.04) H* 10/13/18 07:20 Serum Total Protein 5.6 g/dL (6.4-8.9) L 10/12/18 22:54 Albumin 3.2 g/dL (3.5-5.7) L 10/12/18 22:54 Urine Clarity Cloudy (Clear) A 10/12/18 21:48 Urine Protein 100 mg/dL (Neg-Trace) H 10/12/18 21:48 Urine Blood Large (Negative) H 10/12/18 21:48 Ur Leukocyte Esterase Moderate (Negative) H 10/12/18 21:48 Urine Microscopic RBC 5-15 per hpf (0-3) H 10/12/18 21:48 Urine Microscopic WBC 15-30 per hpf (0-3) H 10/12/18 21:48 Ur Squamous Epith Cells Many per lpf (None-Few) H 10/12/18 21:48 Urine Yeast Few per hpf (None Seen) H 10/12/18 21:48 Ur Culture Indicated? YES (NO) A 10/12/18 21:48 General appearance: Present: no acute distress - Respiratory Respiratory exam: Present: decreased breath sounds, CTAB - Cardiovascular Cardiovascular exam: Present: +S1, +S2 - GI/Abdominal GI/Abdominal exam: Present: distended, normal bowel sounds, soft - Additional comments: [place] with scant amount dk dennis urine - Extremities Exam Additional comments: 1-2+ bilateral lower extremity edema - Neurological Exam Neurological exam: Present: alert, strengths equal and symetr throughout Additional comments: Oriented to name only. Speech is clear. Can follow simple one step commands. SOTO - Skin Skin exam: Present: dry, pallor, warm Palliative Quality Palliative Quality: Screen for Code Status: Yes, Screen for Goals of Care: Yes, Screen for Pain: Yes, If Pain Regimen Started, Initiate Bowel Regimen: NA, Screen for Nausea/Vomitting: Yes Code Status: 10/12/18 21:15 Resuscitation Status: Active [RES] Routine Comment: Resuscitation Status: [id number] 10/12/18 21:40 Resuscitation Status: Active [RES] Routine Comment: short term intubation OK Resuscitation Status: DNR-Comfort Care-Arrest 10/13/18 14:59 CODE [Resuscitation Status: Active] [RES] Routine Comment: Resuscitation Status: EYE-OfgnaleXtst-[id number] - Labs CBC & Chem 7: 10/14/18 03:00 10/14/18 03:00 Labs: Laboratory Results - last 24 hr 10/13/18 10/13/18 10/13/18 06:24 09:42 10:16 WBC RBC Hgb Hct MCV MCH MCHC RDW Plt Count MPV Immature Gran % Seg Neutrophils % Lymphocytes % Monocytes % Eosinophils % Basophils % Neutrophils # Lymphocytes # Monocytes # Eosinophils # Basophils # Nucleated RBCs/100 WBC Sodium 131 L Potassium 5.7 H Chloride 99 Carbon Dioxide 19 L BUN 74 H Creatinine 3.10 H Est GFR ( Amer) 23 L Est GFR (Non-Af Amer) 19 L BUN/Creatinine Ratio 24 Glucose 125 H POC Glucose 139 H 153 H Calculated Osmolality 295 Lactic Acid Uric Acid Calcium 8.3 L Creatine Kinase Ur Eosinophil Smear Urine Creatinine Urine Sodium 10/13/18 10/13/18 10/13/18 12:22 16:05 16:05 WBC 14.8 H RBC 3.22 L Hgb 9.6 L Hct 29.9 L MCV 92.9 MCH 29.8 MCHC 32.1 RDW 16.2 H Plt Count 202 MPV 10.5 Immature Gran % 4.7 H Seg Neutrophils % 87.5 Lymphocytes % 2.7 Monocytes % 5.0 Eosinophils % 0.0 Basophils % 0.1 Neutrophils # 12.9 H Lymphocytes # 0.4 L Monocytes # 0.7 Eosinophils # 0.0 Basophils # 0.0 Nucleated RBCs/100 WBC 0.1 H Sodium 128 L Potassium 6.2 H Chloride 98 Carbon Dioxide 16 L BUN 73 H Creatinine 3.13 H Est GFR ( Amer) 23 L Est GFR (Non-Af Amer) 19 L BUN/Creatinine Ratio 23 Glucose 120 H POC Glucose 129 H Calculated Osmolality 289 Lactic Acid Uric Acid 8.5 H Calcium 8.3 L Creatine Kinase Ur Eosinophil Smear Urine Creatinine Urine Sodium 10/13/18 10/13/18 10/13/18 16:05 19:13 20:10 WBC RBC Hgb Hct MCV MCH MCHC RDW Plt Count MPV Immature Gran % Seg Neutrophils % Lymphocytes % Monocytes % Eosinophils % Basophils % Neutrophils # Lymphocytes # Monocytes # Eosinophils # Basophils # Nucleated RBCs/100 WBC Sodium 129 L Potassium 6.1 H Chloride 98 Carbon Dioxide 16 L BUN 73 H Creatinine 3.16 H Est GFR ( Amer) 23 L Est GFR (Non-Af Amer) 19 L BUN/Creatinine Ratio 23 Glucose 155 H POC Glucose Calculated Osmolality 293 Lactic Acid 3.1 H Uric Acid Calcium 8.2 L Creatine Kinase Ur Eosinophil Smear 0 Urine Creatinine Urine Sodium 10/13/18 10/13/18 10/13/18 20:10 22:06 22:23 WBC RBC Hgb Hct MCV MCH MCHC RDW Plt Count MPV Immature Gran % Seg Neutrophils % Lymphocytes % Monocytes % Eosinophils % Basophils % Neutrophils # Lymphocytes # Monocytes # Eosinophils # Basophils # Nucleated RBCs/100 WBC Sodium 131 L Potassium 5.6 H Chloride 99 Carbon Dioxide 15 L BUN 75 H Creatinine 3.27 H Est GFR ( Amer) 22 L Est GFR (Non-Af Amer) 18 L BUN/Creatinine Ratio 23 Glucose 128 H POC Glucose 147 H Calculated Osmolality 296 Lactic Acid Uric Acid Calcium 7.9 L Creatine Kinase Ur Eosinophil Smear Urine Creatinine 191 Urine Sodium 18.1 10/14/18 10/14/18 10/14/18 03:00 03:00 03:00 WBC 15.3 H RBC 3.00 L Hgb 8.8 L Hct 27.5 L MCV 91.7 MCH 29.3 MCHC 32.0 RDW 16.3 H Plt Count 190 MPV 10.8 Immature Gran % 3.1 Seg Neutrophils % 87.0 Lymphocytes % 3.6 Monocytes % 6.2 Eosinophils % 0.0 Basophils % 0.1 Neutrophils # 13.3 H Lymphocytes # 0.6 Monocytes # 1.0 Eosinophils # 0.0 Basophils # 0.0 Nucleated RBCs/100 WBC 0.1 H Sodium 130 L Potassium 5.3 H Chloride 98 Carbon Dioxide 17 L BUN 76 H Creatinine 3.24 H Est GFR ( Amer) 22 L Est GFR (Non-Af Amer) 18 L BUN/Creatinine Ratio 23 Glucose 143 H POC Glucose Calculated Osmolality 295 Lactic Acid Uric Acid Calcium 7.9 L Creatine Kinase 55 Ur Eosinophil Smear Urine Creatinine Urine Sodium - ABG Interpretation ABG results: PT/INR, D-dimer PT 15.3 Seconds (9.4-12.1) H 10/12/18 22:54 Consult Discharge Plan - Plan [facility]errals: [facility] [Primary Care Provider] -
--- NOTE | 2018-10-14 13:57 | Electrocardiograph Report ---
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
[2018-10-14] MEDS ORDERED: Naloxone 0.4 MG/ML INJ IVP PRN (14:37)
[2018-10-14] MEDS ORDERED: Nitroglycerin 0.4 MG TAB.SUBL SL PRN (14:37)
[2018-10-14] MEDS: 0.9 % Sodium Chloride 1,000 ML IVC SCH ×2 (16:12→23:08)
[2018-10-15] MEDS: Sodium Bicarbonate 150 MEQ in D5% in Water 1,000 ML IVC SCH ×3 (03:46→15:35)
[2018-10-15 04:25] LABS: Basophils % 0.2 %; Eosinophils # 0.1 K/mcL (0.0-0.6); Eosinophils % 1.1 %; Hematocrit 27.7 % (37.5-50.1); Immature Granulocytes % 2.4 % (0-4); Lymphocytes # 0.4 K/mcL (0.6-4.6); Lymphocytes % 3.7 %; Mean Corpuscular HGB Conc 32.5 g/dL (31.6-35.5); Mean Corpuscular Hemoglobin 30.2 pg (28.0-33.3); Mean Platelet Volume 10.8 fL (9.4-12.4); Monocytes # 0.5 K/mcL (0.0-1.3); Monocytes % 4.8 %; Neutrophils # 9.3 K/mcL (1.6-8.9); Nucleated Red Blood Cells 0.3 /100 WBC (0); Platelet Count 149 K/mcL (140-400); Red Blood Count 2.98 M/mcL (4.19-5.50); Red Cell Distribution Width 16.6 % (11.5-14.5); Segmented Neutrophils % 87.8 %; White Blood Count 10.6 K/mcL (4.3-11.1)
[2018-10-15 05:01] LABS: Calcium 7.7 mg/dL (8.6-10.3); Potassium 3.8 mEq/L (3.5-5.1)
[2018-10-15] MEDS: *HR* Heparin 5,000 UNIT/ML VIAL SQ SCH ×2 (05:03→17:38)
--- NOTE | 2018-10-15 07:31 | Internal Med Progress Note ---
Hospitalist Progress Note - Encounter Date of Encounter: 10/15/18 Time of Encounter: 10:00 - Subjective Interval History: sleeping, awakes intermittently and answers questions then closes eyes again. sitter at bedside notes he was up all night and just has fallen asleep. Anxious when he wakes up. otherwise in no apparent distress. given his mentation cannot obtain further HPI or ROS. plan for day discussed with pt rn. no family present - Exam Vitals: Temp Pulse Resp BP Pulse Ox 97.0 F L 73 18 116/61 95 10/15/18 03:45 10/15/18 05:00 10/15/18 05:00 10/15/18 05:00 10/15/18 05:00 Exam: gen- alert, awake,appears stated age eyes- pupils equal round cv- reg rate and rhythm, normal s1,s2, no murmurs appreciated, trace pitting edema bl shins lungs- ctabl, no wheezing, rhonchi or crackles,in ant/lat manzano normal resp effort abd- soft, non tender, non distended, + bs neuro- AAOxperson, CN grossly intact, moves all ext without focal deficit appreciated - Assessment and Plan (1) Severe sepsis Current Visit: Yes Status: Resolved (2) C. difficile colitis Current Visit: Yes Status: Acute (3) Encephalopathy Current Visit: Yes Status: Acute (4) NSTEMI (non-ST elevated myocardial infarction) Current Visit: Yes Status: Acute (5) Acute on chronic kidney failure Current Visit: Yes Status: Acute (6) Hyperkalemia Current Visit: Yes Status: Resolved (7) Hyponatremia Current Visit: Yes Status: Acute (8) CHF (congestive heart failure) Current Visit: No Status: Chronic (9) Goals of care, counseling/discussion Current Visit: Yes Status: Acute - Summary of Assessment and Plan Summary of Assessment and Plan: Mr Landa was admitted to ICU for severe sepsis. Hospitalist team assuming care 10/15 as he is transferring to step down unit when bed available Severe SEpsis 2/2 C diff resolved C Diff Colitis- cont oral vanc, + IV flagyl, monitor stool output and lytes VANESSA on CKD sstage unknown, not improved, suspected 2/2 severe sepsis Hyperkalemia, resolved Acidosis, resolved with bicarb IVFs REnal US unremarkable -nephro following, cont iVF w bicarb as per nephro, monitor UOP, no HD required at this time Systolic CHF, has been stable, though with IVF can now appreciate mild exacerbation with LE pitting edema -requires IVF at this time, no iuresis given kidney funciton, monitor closely as if resp compromise will need lasix and fluids stopped -cont BB Stable normocytic anemia, baseline unknown, cannot determine if acute, chronci or acute on chronic, though known CKD Hypnatremia on admit, slowly improved, now 135 -nephro following, cont to monitor NSTEMI with trop elevation suspected 2/2 Demand this admit Known CAD hx -trop adynamic 0.19-0.22 -cont asa, statin, bb Toxic and Metabolic Encephalopathy- complicated by baseline dementia -cont c diff treat and VANESSA on CKD treatment as above -sitter, avoid sedating agents GOC planning- palliative following code status DNR CCA DNI vte ppx [facility] Internal Medicine: Result - Labs CBC & Chem 7: 10/15/18 03:53 10/15/18 03:53 Labs: Short CBC 10/15/18 Range/Units 03:53 WBC 10.6 (4.3-11.1) K/mcL Hgb 9.0 L (12.9-16.9) g/dL Hct 27.7 L (37.5-50.1) % Plt Count 149 (140-400) K/mcL Neutrophils # 9.3 H (1.6-8.9) K/mcL BMP 10/15/18 03:53 Sodium 135 L Potassium 3.8 Chloride 95 L Carbon Dioxide 26 BUN 88 H Creatinine 3.46 H Glucose 121 H Calcium 7.7 L - ABG Interpretation ABG results: PT/INR, D-dimer PT 15.3 Seconds (9.4-12.1) H 10/12/18 22:54 Consult Discharge Plan - Plan [facility] Care Provider[facility] - (5) Acute on chronic kidney failure Qualifiers: Acute renal failure type: unspecified Chronic kidney disease stage: unspecified stage Qualified Code(s): N17.9 - Acute kidney failure, unspecified; N18.9 - Chronic kidney disease, unspecified (8) CHF (congestive heart failure) Qualifiers: Heart failure type: systolic Heart failure chronicity: chronic Qualified Code(s): I50.22 - Chronic systolic (congestive) heart failure
[2018-10-15] MEDS: MetroNIDAZOLE 500 MG/100 ML 500 MG/100 ML BAG IVPB SCH ×2 (07:49→15:35)
[2018-10-15] MEDS: Finasteride 5 MG TABLET PO SCH (07:49)
[2018-10-15] MEDS: Metoprolol XL (24 HR) Succ 50 MG TAB.ER.24H PO SCH (07:50)
[2018-10-15] MEDS: Vancomycin Oral Soln 125 MG/2.5 ML UDC PO SCH ×4 (07:50→20:53)
[2018-10-15] MEDS: Aspirin Enteric Coated 325 MG Tablet PO SCH (07:50)
--- NOTE | 2018-10-15 09:47 | Nephrology Progress Note ---
Date of Encounter: 10/15/18 Time of Encounter: 09:47 - Assessment and Plan (1) VANESSA (acute kidney injury) Current Visit: Yes Status: Chronic Elevated SCr in the setting of c.diff colitis, decerased po intake with likely sepsis with hypotension that is improving with fluids. Agree with holding all diuretics and nephrotoxins if possible [facility] to [facility] baseline renal fxn requested. Renal function not improving yet. Patient remains oliguric, but with improving urine output. [employer] not indicated at this time (2) Hyponatremia Current Visit: Yes Status: Acute (3) Hyperkalemia Current Visit: Yes Status: Resolved (4) C. difficile colitis Current Visit: Yes Status: Acute Subjective Principal diagnosis: VANESSA Interval history: Patient remains pleasantly demented. He seems comfortable. He has no complaints. He denies pain. His ROS seems to be stable, but due to his mental state complete ROS is unreliable. Objective - Vital Signs Vital signs: Vital Signs Temp Pulse Resp BP Pulse Ox 10/15/18 09:00 79 22 111/69 100 10/15/18 07:00 77 28 114/92 97 10/15/18 05:00 73 18 116/61 95 10/15/18 04:00 81 22 117/69 98 10/15/18 03:45 97.0 F L 10/15/18 03:00 78 19 121/67 98 10/15/18 02:30 69 10/15/18 02:00 78 22 116/62 98 10/15/18 01:00 79 17 111/69 96 10/15/18 00:00 83 21 113/61 98 10/14/18 23:26 98.1 F 10/14/18 23:00 73 14 106/62 98 10/14/18 22:38 79 10/14/18 22:14 76 19 108/64 94 10/14/18 21:00 80 22 105/66 97 10/14/18 20:00 81 20 114/66 95 10/14/18 19:00 83 17 110/62 96 10/14/18 18:57 72 10/14/18 18:00 97.9 F 10/14/18 17:58 77 20 101/71 96 10/14/18 17:00 77 10/14/18 16:00 74 23 107/79 96 10/14/18 13:00 73 22 104/56 97 10/14/18 11:00 73 19 97/71 96 10/14/18 10:00 73 22 114/92 96 Intake and Output 10/14/18 10/15/18 10/15/18 23:59 07:59 15:59 Intake Total 800 / 2490 1250 / 1590 340 / 1590 Output Total 300 / 475 300 / 400 100 / 400 Balance / 2015 950 / 1190 240 / 1190 Intake: IV Fluids 600 / 2050 1250 / 1350 100 / 1350 ALBURX 5% 12.5 gm In 250 ml @ 250 / 250 60 mls/hr IVC .Q4H10M [facility] Rx#: [id number] Sodium Bicarbonate 150 MEQ In 1150 / 1150 Dextrose 5% 1,000 ML @ 100 mls/ hr IVC .[id number] [facility] Rx#: [id number] ALBURX 5% 12.5 gm In 250 ml @ 250 / 250 60 mls/hr IVPB ONCE ONE Rx#: [id number] Flagyl Premix 500 MG/100 ML 500 100 / 200 100 / 200 100 / 200 mg In 100 ml @ 100 mls/hr IVPB Q8HR [facility] Rx#:[id number] Oral 200 / 440 240 / 240 Output: Catheter 300 / 475 300 / 400 100 / 400 Other: Meal Breakfast Percent of Meal Consumed 10% Stool Size Small Small Stool Consistency loose liquid Stool Color Green # Bowel Movements 1 Weight 90.3 kg 90 kg Blood Glucose* 146 128 Patient Weight 10/15/18 23:59 Weight 90 kg - General Appearance General appearance: Present: well-developed, well-nourished EENT: Present: ATNC Neck: Present: supple Integumentary: Present: warm and dry Neurologic: Present: confused Musculoskeletal: Present: no cyanosis Psychiatric: Present: mood/affect appropriate - Lab 10/16/18 07:15 10/16/18 07:15 Most recent lab results 10/15/18 03:53 Calcium 7.7 L Consult Discharge Plan - Plan [facility]errals: [facility] [Primary Care Provider] -
[2018-10-15] MEDS: 0.9 % Sodium Chloride 1,000 ML IVC SCH (12:11)
[2018-10-15] MEDS: Acetaminophen 325 MG TABLET PO PRN ×2 (17:34→20:07)
[2018-10-16] MEDS: MetroNIDAZOLE 500 MG/100 ML 500 MG/100 ML BAG IVPB SCH ×3 (01:42→17:05)
[2018-10-16] MEDS: Sodium Bicarbonate 150 MEQ in D5% in Water 1,000 ML IVC SCH (01:53)
[2018-10-16] MEDS: *HR* Heparin 5,000 UNIT/ML VIAL SQ SCH (06:38)
[2018-10-16 07:29] LABS: Basophils % 0.2 %; Eosinophils # 0.3 K/mcL (0.0-0.6); Eosinophils % 3.4 %; Hematocrit 29.6 % (37.5-50.1); Hemoglobin 9.5 g/dL (12.9-16.9); Immature Granulocytes % 1.6 % (0-4); Lymphocytes # 0.4 K/mcL (0.6-4.6); Mean Corpuscular HGB Conc 32.1 g/dL (31.6-35.5); Mean Corpuscular Hemoglobin 29.8 pg (28.0-33.3); Mean Corpuscular Volume 92.8 fL (83.0-100.0); Mean Platelet Volume 10.8 fL (9.4-12.4); Monocytes # 0.5 K/mcL (0.0-1.3); Monocytes % 5.1 %; Neutrophils # 8.4 K/mcL (1.6-8.9); Platelet Count 126 K/mcL (140-400); Red Blood Count 3.19 M/mcL (4.19-5.50); Red Cell Distribution Width 17.6 % (11.5-14.5); Segmented Neutrophils % 85.7 %; White Blood Count 9.8 K/mcL (4.3-11.1)
[2018-10-16] MEDS: Metoprolol XL (24 HR) Succ 50 MG TAB.ER.24H PO SCH (07:42)
[2018-10-16] MEDS: Vancomycin Oral Soln 125 MG/2.5 ML UDC PO SCH ×4 (07:42→20:03)
[2018-10-16] MEDS: Finasteride 5 MG TABLET PO SCH (07:42)
[2018-10-16] MEDS: Aspirin Enteric Coated 325 MG Tablet PO SCH (07:43)
[2018-10-16 07:48] LABS: Calcium 7.5 mg/dL (8.6-10.3); Potassium 3.6 mEq/L (3.5-5.1)
--- NOTE | 2018-10-16 08:24 | Internal Med Progress Note ---
Hospitalist Progress Note - Encounter Date of Encounter: 10/16/18 Time of Encounter: 09:00 - Subjective Interval History: awake, with staff at bedside, far more alert and interacts. Talking about being in the [employer]. He states he doesn't feel well, but can't say why. Denies abd pain, n/v. RN confirms no bms yest today. Chart review shows last 2 days only 2 bms daily. He denies sob. Has dry cough that he states feels "like tickle" in his throat. No family present. Not able to obtain further hpi or ros given encephalopathy + dementia - Exam Vitals: Temp Pulse Resp BP Pulse Ox 97.8 F 67 18 134/73 97 10/16/18 07:13 10/16/18 07:13 10/16/18 07:13 10/16/18 07:13 10/16/18 07:13 Exam: gen- alert, awake,appears stated age cv- reg rate and rhythm, normal s1,s2, trace pitting edema bl shins, cannot appreciate jvd lungs- scattered exp wheezing, no rhonchi or crackles,in ant/lat manzano normal resp effort on o2 nc abd- soft, non tender, mildly distended, + bs neuro- AAOxperson, CN grossly intact, moves all ext without focal deficit appreciated - Assessment and Plan (1) C. difficile colitis Current Visit: Yes Status: Acute (2) Encephalopathy Current Visit: Yes Status: Acute (3) Acute on chronic kidney failure Current Visit: Yes Status: Acute (4) Hyponatremia Current Visit: Yes Status: Acute (5) CHF (congestive heart failure) Current Visit: No Status: Acute (6) Goals of care, counseling/discussion Current Visit: Yes Status: Acute - Summary of Assessment and Plan Summary of Assessment and Plan: Mr Landa was admitted to ICU for severe sepsis. Hospitalist team assuming care 10/15 as he is transferring to step down unit C Diff Colitis- cont oral vanc, + IV flagyl, monitor stool output and lytes VANESSA on CKD stage unknown, now slowly improving, suspected 2/2 severe sepsis Hyperkalemia, resolved Acidosis, resolved with bicarb IVFs REnal US unremarkable Has not required HD -nephro following, cont iVF w bicarb as per nephro but I have reduced rate to 75cc/hr this morning due to beginning to show clinical signs of volume overload, -UOP yesterday improved to 700 cc -will fu further nephro recs Systolic CHF, now suspect beginning to have mild exacerbation No [facility] records available, most recent echo [id number] EF 30% -requires IVF at this time, rate reduced, will fu nephro recs, no diuresis given kidney function, monitor closely as if resp compromise will need lasix and fluids stopped -cont BB -[facility] Stable normocytic anemia, baseline unknown, cannot determine if acute, chronic or acute on chronic, though known CKD Hypnatremia on admit, slowly improved, now near normal -nephro following, cont to monitor NSTEMI with trop elevation suspected 2/2 Demand this admit Known CAD hx -trop adynamic 0.19-0.22 -cont asa, statin, bb Toxic and Metabolic Encephalopathy- complicated by baseline dementia, appears to be improving -cont c diff treat and VANESSA on CKD treatment as above -sitter, avoid sedating agents GOC planning- palliative following code status DNR CCA DNI vte ppx scds as plt drop today and stop sq hep Internal Medicine: Result - Labs CBC & Chem 7: 10/16/18 07:15 10/16/18 07:15 Labs: Short CBC 10/16/18 Range/Units 07:15 WBC 9.8 (4.3-11.1) K/mcL Hgb 9.5 L (12.9-16.9) g/dL Hct 29.6 L (37.5-50.1) % Plt Count 126 L (140-400) K/mcL Neutrophils # 8.4 (1.6-8.9) K/mcL BMP 10/16/18 07:15 Sodium 134 L Potassium 3.6 Chloride 91 L Carbon Dioxide 32 H BUN 81 H Creatinine 3.08 H Glucose 133 H Calcium 7.5 L - ABG Interpretation ABG results: PT/INR, D-dimer PT 15.3 Seconds (9.4-12.1) H 10/12/18 22:54 Consult Discharge Plan - Plan [facility]errals: [facility] [Primary Care Provider] - ___ (3) Acute on chronic kidney failure Qualifiers: Acute renal failure type: unspecified Chronic kidney disease stage: unspecified stage Qualified Code(s): N17.9 - Acute kidney failure, unspecified; N18.9 - Chronic kidney disease, unspecified (5) CHF (congestive heart failure) Qualifiers: Heart failure type: systolic Heart failure chronicity: chronic Qualified Code(s): I50.22 - Chronic systolic (congestive) heart failure
[2018-10-16] MEDS ORDERED: Sodium Bicarbonate 150 MEQ in D5% in Water 1,000 ML IVC SCH (08:30)
--- NOTE | 2018-10-16 12:27 | Nephrology Progress Note ---
Date of Encounter: 10/16/18 Time of Encounter: 12:25 - Assessment and Plan (1) VANESSA (acute kidney injury) Current Visit: Yes Status: Chronic Multifactorial VANESSA that is improviing. Baseline renal function is unknown. Anticipate continued recovery. He does not need or want dialysis. Will sign off. Call if questions or concerns. He can follow-up on an outpatient basis with nephrology if needed. (2) Hyponatremia Current Visit: Yes Status: Acute (3) Hyperkalemia Current Visit: Yes Status: Resolved (4) C. difficile colitis Current Visit: Yes Status: Acute Subjective Principal diagnosis: VANESSA Interval history: Patient is asleep. Family is at his bedside. Objective - Vital Signs Vital signs: Vital Signs Temp Pulse Resp BP Pulse Ox 10/16/18 11:50 97.5 F L 67 20 104/71 97 10/16/18 07:13 97.8 F 67 18 134/73 97 10/16/18 03:42 97.8 F 64 18 113/66 97 10/16/18 00:22 60 10/15/18 23:43 98.2 F 65 22 119/65 97 10/15/18 21:45 69 10/15/18 20:00 98.7 F 67 23 108/63 97 10/15/18 18:25 98.7 F 73 23 108/75 94 10/15/18 15:00 66 18 109/59 96 10/15/18 13:00 73 22 106/71 94 Intake and Output 10/15/18 10/16/18 10/16/18 23:59 07:59 15:59 Intake Total 100 / 3990 1250 / 1730 480 / 1730 Output Total 150 / 700 500 / 500 Balance -50 / 3290 750 / 1230 480 / 1230 Intake: IV Fluids 100 / 3750 1250 / 1250 Sodium Bicarbonate 150 MEQ In 1150 / 1150 Dextrose 5% 1,000 ML @ 100 mls/ hr IVC .[id number] [facility] Rx#: [id number] Flagyl Premix 500 MG/100 ML 500 100 / 300 100 / 100 mg In 100 ml @ 100 mls/hr IVPB Q8HR [facility] Rx#:[id number] Oral 480 / 480 Output: Catheter 150 / 700 500 / 500 Other: Meal Lunch Breakfast Percent of Meal Consumed 50% 10% Stool Size Small Stool Consistency loose Stool Color Brown Yellow Weight 93.1 kg 93 kg Blood Glucose* 137 132 Patient Weight 10/16/18 23:59 Weight 93 kg - General Appearance General appearance: Present: well-developed, well-nourished EENT: Present: ATNC Cardiology: Present: regular rate - Lab 10/16/18 07:15 10/16/18 07:15 Most recent lab results 10/16/18 10/16/18 07:15 07:15 Calcium 7.5 L Magnesium 2.0 Consult Discharge Plan - Plan [facility]errals: [facility] [Primary Care Provider] -
[2018-10-16] MEDS: Acetaminophen 325 MG TABLET PO PRN (17:12)
--- NOTE | 2018-10-16 18:02 | Electrocardiograph Report ---
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
[2018-10-16] MEDS: Melatonin 3 MG TABLET PO PRN (22:01)
[2018-10-17] MEDS: MetroNIDAZOLE 500 MG/100 ML 500 MG/100 ML BAG IVPB SCH ×3 (00:15→16:28)
[2018-10-17] MEDS: Albuterol 2.5 MG/3 ML NEBULIZER IH PRN (04:15)
[2018-10-17 05:16] LABS: Basophils % 0.3 %; Eosinophils # 0.2 K/mcL (0.0-0.6); Eosinophils % 1.4 %; Hematocrit 29.7 % (37.5-50.1); Hemoglobin 9.5 g/dL (12.9-16.9); Immature Granulocytes % 1.5 % (0-4); Lymphocytes # 0.4 K/mcL (0.6-4.6); Lymphocytes % 3.5 %; Mean Corpuscular Hemoglobin 29.9 pg (28.0-33.3); Mean Corpuscular Volume 93.4 fL (83.0-100.0); Mean Platelet Volume 11.5 fL (9.4-12.4); Monocytes # 0.6 K/mcL (0.0-1.3); Monocytes % 5.7 %; Neutrophils # 9.9 K/mcL (1.6-8.9); Platelet Count 127 K/mcL (140-400); Red Blood Count 3.18 M/mcL (4.19-5.50); Red Cell Distribution Width 18.3 % (11.5-14.5); Segmented Neutrophils % 87.6 %; White Blood Count 11.3 K/mcL (4.3-11.1)
[2018-10-17 05:32] LABS: Calcium 7.6 mg/dL (8.6-10.3); Potassium 3.6 mEq/L (3.5-5.1)
[2018-10-17] MEDS: Finasteride 5 MG TABLET PO SCH (07:36)
[2018-10-17] MEDS: Metoprolol XL (24 HR) Succ 50 MG TAB.ER.24H PO SCH (07:36)
[2018-10-17] MEDS: Aspirin Enteric Coated 325 MG Tablet PO SCH (07:36)
[2018-10-17] MEDS: Vancomycin Oral Soln 125 MG/2.5 ML UDC PO SCH ×4 (07:44→20:26)
--- NOTE | 2018-10-17 08:51 | Internal Med Progress Note ---
<Myrna Chappell - Last Filed: 10/17/18 14:09> Hospitalist Progress Note - Encounter Date of Encounter: 10/17/18 - Exam Vitals: Temp Pulse Resp BP Pulse Ox 97.4 F L 64 18 108/68 94 10/17/18 11:23 10/17/18 11:23 10/17/18 11:23 10/17/18 11:23 10/17/18 11:23 - Assessment and Plan (1) C. difficile colitis Current Visit: Yes Status: Acute (2) Encephalopathy Current Visit: Yes Status: Acute (3) Acute on chronic kidney failure Current Visit: Yes Status: Acute (4) Hyponatremia Current Visit: Yes Status: Acute (5) CHF (congestive heart failure) Current Visit: No Status: Acute (6) Goals of care, counseling/discussion Current Visit: Yes Status: Acute - Time Spent with Patient Total time spent is greater than 50% in coordination of care (as documented) at patient's floor/unit and/or counseling patient: Internal Medicine: Result - Labs CBC & Chem 7: 10/17/18 04:00 10/17/18 04:00 Labs: Short CBC 10/17/18 Range/Units 04:00 WBC 11.3 H (4.3-11.1) K/mcL Hgb 9.5 L (12.9-16.9) g/dL Hct 29.7 L (37.5-50.1) % Plt Count 127 L (140-400) K/mcL Neutrophils # 9.9 H (1.6-8.9) K/mcL BMP 10/17/18 04:00 Sodium 132 L Potassium 3.6 Chloride 91 L Carbon Dioxide 27 BUN 76 H Creatinine 2.81 H Glucose 134 H Calcium 7.6 L - ABG Interpretation ABG results: PT/INR, D-dimer PT 15.3 Seconds (9.4-12.1) H 10/12/18 22:54 Consult Discharge Plan - Plan [facility]errals: [facility] [Primary Care Provider] - (patient is home based care. I left a message with them to give us a call back) - Attending Attestation I examined this patient and my medical decision-making was reviewed with the Resident Physician Dr Welch. I agree with the documented findings, disposition and treatment plan as described except to the extent set forth below. Mr Landa was admitted to ICU for severe sepsis related to C Diff C Diff- cont oral vanc, + IV flagyl, while he has urge freq to move bowels, he is not moving them more than twice daily in recent days VANESSA on CKD stage unknown, improved -nephro has signed off, will avoid nephro toxins including lasix unless has resp compromise -today's labs reviewed, will monitor off IVFs today and repeat in am for further IVF needs, carmine in setting of volume overload Systolic CHF, with mild exacerbation most recent echo here 2016 EF 30% -no diuresis given kidney function, monitor closely as if resp compromise will need lasix -cont BB Hyponatremia on admit, slowly improved -cont to monitor off ivfs today NSTEMI with trop elevation suspected Type II , though clinically unable to rule out Type I given Known CAD hx -cont asa, statin, bb Toxic and Metabolic Encephalopathy- complicated by baseline dementia, appears to be improving daily -cont c diff treat and VANESSA on CKD treatment as above -sitter, avoid sedating agents GOC planning- palliative following code status DNR CCA DNI vte ppx scds as plt drop and stopped sq hep dispo planning- pt /ot evals as ,medically stable enough to participate now <Malcolm Welch - Last Filed: 10/17/18 19:18> Hospitalist Progress Note - Encounter Date of Encounter: 10/17/18 Time of Encounter: 09:00 - Subjective Interval History: course: Mr. Landa is an 88-year-old male who presented to the ED on 10/12/18 from home with home health nursing for decreased urine output, weakness, AMS. Past medical history per chart: A. fib, AICD/defibrillator, hypertension, C. difficile, CHF, CAD with multiple stent placements, dementia, renal disease. Vital significant for blood pressure 93/62. Other vitals stable. Labs were significant for hyperkalemia, hyponatremia, elevated serum creatinine, elevated troponin at 0.19 -> 0.22, elevated white blood count. Imaging significant for CXR showing pulmonary vascular congestion; EKG read as possible ischemic changes; retroperitoneal ultrasound showing ascites He was admitted to the ICU for sepsis secondary to C. difficile, VANESSA, hyperkalemia, hyponatremia, CHF. Pulmonology and nephrology were consulted. He was treated with 2 L IV fluid; IV metronidazole; rectal vancomycin enemas; half liter 5% albumin; potassium lowering and cardiac protective agents including insulin, calcium gluconate, albuterol, Kayexalate enema 10/17/18: Patient seen at bedside and states she feels worse than when he came in. Per nursing he has had 4 bowel movements this morning. Upon further investigation he had 2 recorded actual bowel movements and has been experiencing the urge to defecate without actual bowel movements. - Exam Vitals: Temp Pulse Resp BP Pulse Ox 97.5 F L 65 18 105/63 100 10/17/18 07:25 10/17/18 07:25 10/17/18 07:25 10/17/18 07:25 10/17/18 07:25 Exam: gen: somewhat somnolent but arouses to repeated voice and touch skin: good turgor cardiac: RRR. 2/6 systolic murmur over tricuspid. only tricuspid post heard reliable. respiratory: distant lung sounds at bases anteriorly. anteriorly CTA otherwise. ext: cap refill <2 sec upper ext. 2+ pitting edema to knee on L and not quite to knee on R. neuro: diffuse body tremor. CN: 2 did not assess but pupils seem constricted maximally. 3,4,6 could not assess b/c couldnt follow command. 5 intact. 7 not assessed 2/2 command not followed. gross hearing intact but poor. 9/10 phonation in tact. 11 shoulder shrug intact. 12 intact. cerebellum not assessed 2/2 commands. sensation and strength grossly intact upper and lower ext. alert and oriented to only person and place. - Assessment and Plan (1) C. difficile colitis Current Visit: Yes Status: Acute (2) Encephalopathy Current Visit: Yes Status: Acute (3) Acute on chronic kidney failure Current Visit: Yes Status: Acute (4) Hyponatremia Current Visit: Yes Status: Acute (5) CHF (congestive heart failure) Current Visit: No Status: Acute (6) NSTEMI (non-ST elevated myocardial infarction) Current Visit: Yes Status: Acute (7) Palliative care encounter Current Visit: Yes Status: Acute - Summary of Assessment and Plan Summary of Assessment and Plan: C. Diff Colitis -ongoing. was on outpt vanc 125 mg Po q6 per chart. thought to be the source of sepsis on pt admission -baseline diarrhea. -nursing reports 2 loose stools since last night. Cumulative I/O: 10 L. Hyponatremia as below. -Vanc 500 mg by mouth 4 times daily day 4. Metronidazole 500 3 times a day IV d ay 5. Encephalopathy -likely 2/2 sepsis -patient's baseline is severely demented -SIRS: 2/4 with WBC 12.6 and respiratory rate 22 day of admission -lactic acid 2.7 on admission; blood cultures 10/12/18 x2 remain negative -Vancomycin and metronidazole as above. -Patient is now near mental baseline. VANESSA on CKD -likely prerenal 2/2 dehydration. -decreased urine output per home nurse. Baseline renal function unknown. -initial BUN/Cr was 66/2.84. Was 88/3.46. Now 76/2.81. urine output 550 mL. -No dialysis needed per nephro. Hyponatremia -normal serum osmolality so likely some component of pseudohyponatremia -consider 2/2 hypovolemia as began to improve on 10/13/18 after 4L normal saline IVF -124 on admission. 132 on 10/17/18. -7 L sodium bicarb therapy total stopped 10/16/18. -Continue to monitor NSTEMI -likely 2/2 hypovolemia and demand ischemia(Type 2) -Trop 0.19-0.22. EKG shows prolonged DC interval and ead as suggestive of lateral ischemia 2/2 repolarization abnormality -no further treatment pursued Systolic CHF -Likely 2/2 CAD -no echo on record. -Troponin as above -EKG as above -plan to give furosemide if respiratory distress. Palliative care encounter -family transitioned from DNR-arrest to DNR/DNI. - Time Spent with Patient Total time spent is gr Internal Medicine: Result - Labs CBC & Chem 7: 10/17/18 04:00 10/17/18 04:00 Labs: Short CBC 10/17/18 Range/Units 04:00 WBC 11.3 H (4.3-11.1) K/mcL Hgb 9.5 L (12.9-16.9) g/dL Hct 29.7 L (37.5-50.1) % Plt Count 127 L (140-400) K/mcL Neutrophils # 9.9 H (1.6-8.9) K/mcL BMP 10/17/18 04:00 Sodium 132 L Potassium 3.6 Chloride 91 L Carbon Dioxide 27 BUN 76 H Creatinine 2.81 H Glucose 134 H Calcium 7.6 L - ABG Interpretation ABG results: PT/INR, D-dimer PT 15.3 Seconds (9.4-12.1) H 10/12/18 22:54 <Myrna Chappell - Last Filed: 10/17/18 14:09> (3) Acute on chronic kidney failure Qualifiers: Acute renal failure type: unspecified Chronic kidney disease stage: unspecified stage Qualified Code(s): N17.9 - Acute kidney failure, unspecified; N18.9 - Chronic kidney disease, unspecified (5) CHF (congestive heart failure) Qualifiers: Heart failure type: systolic Heart failure chronicity: chronic Qualified Code(s): I50.22 - Chronic systolic (congestive) heart failure <Malcolm Welch G - Last Filed: 10/17/18 19:18> (3) Acute on chronic kidney failure Qualifiers: Acute renal failure type: unspecified Chronic kidney disease stage: unspecified stage Qualified Code(s): N17.9 - Acute kidney failure, unspecified; N18.9 - Chronic kidney disease, unspecified (5) CHF (congestive heart failure) Qualifiers: Heart failure type: systolic Heart failure chronicity: chronic Qualified Code(s): I50.22 - Chronic systolic (congestive) heart failure
--- NOTE | 2018-10-17 10:20 | Palliative Progress Note ---
Date of Encounter: 10/17/18 Time of Encounter: 10:15 - Assessment and plan (1) Generalized weakness Current Visit: Yes Status: Acute Assessment and plan: PT/OT consult eval and treat. He was recently in [facility] for rehab. (2) Altered mental status Current Visit: Yes Status: Acute Assessment and plan: Gradually improving with treatment for C-diff and sepsis. MOnitor. Qualifiers: Altered mental status type: unspecified Qualified Code(s): R41.82 - Altered mental status, unspecified (3) Goals of care, counseling/discussion Current Visit: Yes Status: Acute Assessment and plan: No family present. Patient still somewhat confused, although calm and not agitated. Patient will require rehab after admission. Will get PT/OT consult on board.. He needs to start getting out of bed. (4) Palliative care encounter Current Visit: Yes Status: Acute (5) Clostridium difficile infection Current Visit: Yes Status: Acute Assessment and plan: Continues with IV Flagyl and po Vanc. (6) VANESSA (acute kidney injury) Current Visit: Yes Status: Chronic (7) CHF (congestive heart failure) Current Visit: No Status: Acute Qualifiers: Heart failure type: systolic Heart failure chronicity: chronic Qualified Code(s): I50.22 - Chronic systolic (congestive) heart failure - Time Spent With Patient Total time spent is greater than 50% in coordination of care (as documented) at patient's floor/unit and/or counseling patient: - Subjective Interval history: Patient awake and alert today, pleasantly confused and very talkative. [place]. He is able to tell me he is in [place], thinks he is at dental office. Reoriented to place and situation. States trying to eat, but not much appetite. Still having small loose stools. Renal function slowing improving. Vitals stable. - Constitutional Vitals: Abnormal lab results WBC 11.3 K/mcL (4.3-11.1) H 10/17/18 04:00 RBC 3.18 M/mcL (4.19-5.50) L 10/17/18 04:00 Hgb 9.5 g/dL (12.9-16.9) L 10/17/18 04:00 Hct 29.7 % (37.5-50.1) L 10/17/18 04:00 RDW 18.3 % (11.5-14.5) H 10/17/18 04:00 Plt Count 127 K/mcL (140-400) L 10/17/18 04:00 Immature Gran % 4.7 % (0-4) H 10/13/18 16:05 Neutrophils # 9.9 K/mcL (1.6-8.9) H 10/17/18 04:00 Lymphocytes # 0.4 K/mcL (0.6-4.6) L 10/17/18 04:00 Nucleated RBCs/100 WBC 0.3 /100 WBC (0) H 10/15/18 03:53 Hypochromasia Present (Not Present) A 10/13/18 04:18 Mike Cells 1+ (Not Present) A 10/13/18 04:18 PT 15.3 Seconds (9.4-12.1) H 10/12/18 22:54 Sodium 132 mEq/L (136-145) L 10/17/18 04:00 Potassium 5.3 mEq/L (3.5-5.1) H 10/14/18 03:00 Chloride 91 mEq/L (98-107) L 10/17/18 04:00 Carbon Dioxide 32 mEq/L (23-29) H 10/16/18 07:15 BUN 76 mg/dL (8-23) H 10/17/18 04:00 Creatinine 2.81 mg/dL (0.70-1.30) H 10/17/18 04:00 Est GFR ( Amer) 26 (> 60) L 10/17/18 04:00 Est GFR (Non-Af Amer) 21 (> 60) L 10/17/18 04:00 BUN/Creatinine Ratio 27 (6-26) H 10/17/18 04:00 Glucose 134 mg/dL (70-105) H 10/17/18 04:00 POC Glucose 155 mg/dL (70-99) H 10/16/18 16:20 Calculated Osmolality 304 (280-300) H 10/16/18 07:15 Lactic Acid 3.1 mmol/L (0.5-2.2) H 10/13/18 16:05 Uric Acid 8.5 mg/dL (2.3-7.6) H 10/13/18 16:05 Calcium 7.6 mg/dL (8.6-10.3) L 10/17/18 04:00 Phosphorus 6.5 mg/dL (2.7-4.5) H 10/13/18 04:18 AST 959 Units/L (13-39) H 10/12/18 22:54 ALT 897 Units/L (7-52) H 10/12/18 22:54 Alkaline Phosphatase 176 Units/L (34-104) H 10/12/18 22:54 Troponin I 0.22 ng/mL (< 0.04) H* 10/13/18 07:20 Serum Total Protein 5.6 g/dL (6.4-8.9) L 10/12/18 22:54 Albumin 3.2 g/dL (3.5-5.7) L 10/12/18 22:54 Urine Clarity Cloudy (Clear) A 10/12/18 21:48 Urine Protein 100 mg/dL (Neg-Trace) H 10/12/18 21:48 Urine Blood Large (Negative) H 10/12/18 21:48 Ur Leukocyte Esterase Moderate (Negative) H 10/12/18 21:48 Urine Microscopic RBC 5-15 per hpf (0-3) H 10/12/18 21:48 Urine Microscopic WBC 15-30 per hpf (0-3) H 10/12/18 21:48 Ur Squamous Epith Cells Many per lpf (None-Few) H 10/12/18 21:48 Urine Yeast Few per hpf (None Seen) H 10/12/18 21:48 Ur Culture Indicated? YES (NO) A 10/12/18 21:48 General appearance: Present: no acute distress - Neck Neck exam: Present: normal inspection - Respiratory Respiratory exam: Present: CTAB - Cardiovascular Cardiovascular exam: Present: +S1, +S2 - GI/Abdominal GI/Abdominal exam: Present: distended, normal bowel sounds, soft - Additional comments: [place] with dk yellow clear urine - Extremities Exam Additional comments: Upper extremities with 2+ edema bilaterally. Lower extremities with 1+ edema - Neurological Exam Neurological exam: Present: alert, altered, strengths equal and symetr throughout Additional comments: Follows commands. Still requires reorienting to place and situation. - Skin Skin exam: Present: dry, pallor, warm Palliative Quality Palliative Quality: Screen for Code Status: Yes, Screen for Goals of Care: Yes, Screen for Pain: Yes, If Pain Regimen Started, Initiate Bowel Regimen: NA, Scr een for Nausea/Vomitting: Yes Code Status: 10/12/18 21:15 Resuscitation Status: Active [RES] Routine Comment: Resuscitation Status: [id number] 10/12/18 21:40 Resuscitation Status: Active [RES] Routine Comment: short term intubation OK Resuscitation Status: DNR-Comfort Care-Arrest 10/13/18 14:59 CODE [Resuscitation Status: Active] [RES] Routine Comment: Resuscitation Status: [id number] - Labs CBC & Chem 7: 10/17/18 04:00 10/17/18 04:00 Labs: Laboratory Results - last 24 hr 10/15/18 10/16/18 10/16/18 23:40 11:44 16:20 WBC RBC Hgb Hct MCV MCH MCHC RDW Plt Count MPV Immature Gran % Seg Neutrophils % Lymphocytes % Monocytes % Eosinophils % Basophils % Neutrophils # Lymphocytes # Monocytes # Eosinophils # Basophils # Sodium Potassium Chloride Carbon Dioxide BUN Creatinine Est GFR ( Amer) Est GFR (Non-Af Amer) BUN/Creatinine Ratio Glucose POC Glucose 137 H 132 H 155 H Calculated Osmolality Calcium 10/17/18 10/17/18 04:00 04:00 WBC 11.3 H RBC 3.18 L Hgb 9.5 L Hct 29.7 L MCV 93.4 MCH 29.9 MCHC 32.0 RDW 18.3 H Plt Count 127 L MPV 11.5 Immature Gran % 1.5 Seg Neutrophils % 87.6 Lymphocytes % 3.5 Monocytes % 5.7 Eosinophils % 1.4 Basophils % 0.3 Neutrophils # 9.9 H Lymphocytes # 0.4 L Monocytes # 0.6 Eosinophils # 0.2 Basophils # 0.0 Sodium 132 L Potassium 3.6 Chloride 91 L Carbon Dioxide 27 BUN 76 H Creatinine 2.81 H Est GFR ( Amer) 26 L Est GFR (Non-Af Amer) 21 L BUN/Creatinine Ratio 27 H Glucose 134 H POC Glucose Calculated Osmolality 299 Calcium 7.6 L - ABG Interpretation ABG results: PT/INR, D-dimer PT 15.3 Seconds (9.4-12.1) H 10/12/18 22:54 Consult Discharge Plan - Plan [facility]errals: [facility] [Primary Care Provider] -
[2018-10-17] MEDS: Melatonin 3 MG TABLET PO PRN (20:30)
[2018-10-18] MEDS: MetroNIDAZOLE 500 MG/100 ML 500 MG/100 ML BAG IVPB SCH ×3 (01:16→17:51)
[2018-10-18] MEDS: Albuterol 2.5 MG/3 ML NEBULIZER IH PRN (01:18)
[2018-10-18 05:21] LABS: Basophils % 0.2 %; Eosinophils % 0.3 %; Hematocrit 30.8 % (37.5-50.1); Hemoglobin 9.9 g/dL (12.9-16.9); Immature Granulocytes % 1.4 % (0-4); Lymphocytes # 0.4 K/mcL (0.6-4.6); Lymphocytes % 2.7 %; Mean Corpuscular HGB Conc 32.1 g/dL (31.6-35.5); Mean Corpuscular Hemoglobin 30.7 pg (28.0-33.3); Mean Corpuscular Volume 95.4 fL (83.0-100.0); Mean Platelet Volume 11.4 fL (9.4-12.4); Monocytes # 0.7 K/mcL (0.0-1.3); Monocytes % 5.6 %; Neutrophils # 11.9 K/mcL (1.6-8.9); Nucleated Red Blood Cells 0.2 /100 WBC (0); Platelet Count 135 K/mcL (140-400); Red Blood Count 3.23 M/mcL (4.19-5.50); Red Cell Distribution Width 18.3 % (11.5-14.5); Segmented Neutrophils % 89.8 %; White Blood Count 13.3 K/mcL (4.3-11.1)
[2018-10-18 05:42] LABS: Calcium 7.9 mg/dL (8.6-10.3); Potassium 3.8 mEq/L (3.5-5.1)
--- NOTE | 2018-10-18 07:57 | Internal Med Progress Note ---
<Myrna Chappell - Last Filed: 10/18/18 13:06> Hospitalist Progress Note - Encounter Date of Encounter: 10/18/18 - Exam Vitals: Temp Pulse Resp BP Pulse Ox 97.4 F L 75 20 106/74 99 10/18/18 11:52 10/18/18 11:52 10/18/18 11:52 10/18/18 11:52 10/18/18 11:52 - Assessment and Plan (1) C. difficile colitis Current Visit: Yes Status: Acute (2) Encephalopathy Current Visit: Yes Status: Acute (3) Acute on chronic kidney failure Current Visit: Yes Status: Acute (4) Hyponatremia Current Visit: Yes Status: Acute (5) CHF (congestive heart failure) Current Visit: No Status: Acute (6) Goals of care, counseling/discussion Current Visit: Yes Status: Acute - Time Spent with Patient Total time spent is greater than 50% in coordination of care (as documented) at patient's floor/unit and/or counseling patient: Internal Medicine: Result - Labs CBC & Chem 7: 10/18/18 04:59 10/18/18 04:59 Labs: Short CBC 10/18/18 Range/Units 04:59 WBC 13.3 H (4.3-11.1) K/mcL Hgb 9.9 L (12.9-16.9) g/dL Hct 30.8 L (37.5-50.1) % Plt Count 135 L (140-400) K/mcL Neutrophils # 11.9 H (1.6-8.9) K/mcL BMP 10/18/18 04:59 Sodium 133 L Potassium 3.8 Chloride 92 L Carbon Dioxide 26 BUN 81 H Creatinine 2.76 H Glucose 145 H Calcium 7.9 L - ABG Interpretation ABG results: PT/INR, D-dimer PT 15.3 Seconds (9.4-12.1) H 10/12/18 22:54 Consult Discharge Plan - Plan [facility]errals: [facility] [Primary Care Provider[facility] - (patient is home based care. I left a message with them to give us a call back) - Attending Attestation I examined this patient and my medical decision-making was reviewed with the Resident Physician Dr Welch. I agree with the documented findings, disposition and treatment plan as described except to the extent set forth below. Mr Landa was admitted to ICU for severe sepsis related to C Diff awake, sitting in chair, he has no ocmplaints. He is unsure where he is. reoriented. denies abd pain or sob. gen- alert, awake,appears stated age cv- reg rate and rhythm, normal s1,s2, + pitting edema bl shins lungs- ctable normal resp effort on o2 nc abd- soft, non tender, mildly distended, + bs neuro- AAOxperson, CN grossly intact C Diff- cont oral vanc, + IV flagyl, bms consistently two daily now VANESSA on CKD stage unknown, improved -nephro has signed off, will avoid nephro toxins including lasix unless has resp compromise -today's labs reviewed, will monitor off IVFs today and repeat in am for further IVF needs, carmine in setting of volume overload Systolic CHF, with mild exacerbation most recent echo here 2015 EF 30% -no diuresis given kidney function, monitor closely as if resp compromise will need lasix -cont BB Hyponatremia on admit, slowly improved NSTEMI with trop elevation suspected Type II , though clinically unable to rule out Type I given Known CAD hx -cont asa, statin, bb Toxic and Metabolic Encephalopathy- complicated by baseline dementia, appears to be improving daily -cont c diff treat and VANESSA on CKD treatment as above -sitter, avoid sedating agents GOC planning- palliative following code status DNR CCA DNI dispo planning- pt /ot evals as ,medically stable enough to participate now, suspect will be med clear for dc in next 24-48 hr <Malcolm Welch - Last Filed: 10/18/18 17:36> Hospitalist Progress Note - Encounter Date of Encounter: 10/18/18 Time of Encounter: 06:30 - Subjective Interval History: Patient states he feels about the same as yesterday. He is alert and oriented 3 today. He seems more lucid than yesterday afternoon. However he states his last bowel movement was 3 days ago. - Exam Vitals: Temp Pulse Resp BP Pulse Ox 97.2 F L 84 18 105/84 92 10/18/18 07:43 10/18/18 07:43 10/18/18 07:43 10/18/18 07:43 10/18/18 07:43 Exam: Gen.: Elderly male. No acute distress. Cardio: RRR. 2/6 systolic murmur heard throughout. No hepatojugular reflex or JVD. Respiratory: Basilar crackles. Breathing nonlabored. Neuro: Pupillary light reaction not assessed. Visual manzano intact. CN III, 4, and 6 intact. CN V and VII intact. Some difficulty with resisting eyebrow lift. Phonation intact. Hearing poor but intact. Cranial nerve XI intact. 12 intact. Alert and oriented 3. Extremities: 3+ pitting edema to the knee bilaterally. Some edema above the knee, nonpitting. - Assessment and Plan (1) C. difficile colitis Current Visit: Yes Status: Acute Assessment and Plan: -ongoing. was on outpt vanc 125 mg Po q6 per chart. thought to be the source of sepsis on pt admission -baseline diarrhea. -nursing reports no stools today. Cumulative I/O daily: -0.2L. Hyponatremia as below. -Vanc 500 mg by mouth 4 times daily day 5. Metronidazole 500 3 times a day IV day 6. (2) Encephalopathy Current Visit: Yes Status: Acute Assessment and Plan: -likely 2/2 sepsis -patient's baseline is severely demented -SIRS: 2/4 with WBC 12.6 and respiratory rate 22 day of admission -lactic acid 2.7 on admission; blood cultures 10/12/18 x2 negative final -Vancomycin and metronidazole as above. -Patient is now near mental baseline. (3) Acute on chronic kidney failure Current Visit: Yes Status: Acute Assessment and Plan: -likely prerenal 2/2 dehydration. -decreased urine output per home nurse. Baseline renal function unknown. -initial BUN/Cr was 66/2.84. creatinine continues to improve. -metabolic acidosis corrected with bicarb drip. gap stable. -No dialysis needed per nephro. (4) Hyponatremia Current Visit: Yes Status: Acute Assessment and Plan: -normal serum osmolality so likely some component of pseudohyponatremia -consider 2/2 hypovolemia as began to improve on 10/13/18 after 4L normal saline IVF -124 on admission. 132 on 10/17/18. -7 L sodium bicarb therapy total stopped 10/16/18. Plan: -Continue to monitor (5) CHF (congestive heart failure) Current Visit: No Status: Acute Assessment and Plan: -systolic -Likely 2/2 CAD -no echo on record. -Troponin and EKG as below plan: -plan to give furosemide if respiratory distress. (6) NSTEMI (non-ST elevated myocardial infarction) Current Visit: Yes Status: Acute Assessment and Plan: -likely 2/2 hypovolemia and demand ischemia(Type 2) -Trop 0.19-0.22. EKG showed prolonged OH interval and read as suggestive of lateral ischemia 2/2 repolarization abnormality -no further treatment pursued (7) Palliative care encounter Current Visit: Yes Status: Acute Assessment and Plan: -family transitioned from DNR-arrest to DNR/DNI. -PT/OT recommend SNF - Time Spent with Patient Total time spent is greater than 50% in coordination of care (as documented) at patient's floor/unit and/or counseling patient: Internal Medicine: Result - Labs CBC & Chem 7: 10/18/18 04:59 10/18/18 04:59 Labs: Short CBC 10/18/18 Range/Units 04:59 WBC 13.3 H (4.3-11.1) K/mcL Hgb 9.9 L (12.9-16.9) g/dL Hct 30.8 L (37.5-50.1) % Plt Count 135 L (140-400) K/mcL Neutrophils # 11.9 H (1.6-8.9) K/mcL BMP 10/18/18 04:59 Sodium 133 L Potassium 3.8 Chloride 92 L Carbon Dioxide 26 BUN 81 H Creatinine 2.76 H Glucose 145 H Calcium 7.9 L - ABG Interpretation ABG results: PT/INR, D-dimer PT 15.3 Seconds (9.4-12.1) H 10/12/18 22:54 <Myrna Chappell - Last Filed: 10/18/18 13:06> (3) Acute on chronic kidney failure Qualifiers: Acute renal failure type: unspecified Chronic kidney disease stage: unspe cified stage Qualified Code(s): N17.9 - Acute kidney failure, unspecified; N18.9 - Chronic kidney disease, unspecified (5) CHF (congestive heart failure) Qualifiers: Heart failure type: systolic Heart failure chronicity: chronic Qualified Code(s): I50.22 - Chronic systolic (congestive) heart failure <Malcolm Welch G - Last Filed: 10/18/18 17:36> (3) Acute on chronic kidney failure Qualifiers: Acute renal failure type: unspecified Chronic kidney disease stage: unspecified stage Qualified Code(s): N17.9 - Acute kidney failure, unspecified; N18.9 - Chronic kidney disease, unspecified (5) CHF (congestive heart failure) Qualifiers: Heart failure type: systolic Heart failure chronicity: chronic Qualified Code(s): I50.22 - Chronic systolic (congestive) heart failure
--- NOTE | 2018-10-18 09:39 | Event Note ---
Date of Encounter: 10/18/18 Time of Encounter: 09:00 Patient awake and alert, has no complaints. Comfortable and in no distress. Continues to have small loose stools, not much po intake. Awaiting PT/OT consult today. He will likely need rehab. Palliative will follow from a distance.
[2018-10-18] MEDS: Vancomycin Oral Soln 125 MG/2.5 ML UDC PO SCH ×3 (09:46→20:15)
[2018-10-18] MEDS: Finasteride 5 MG TABLET PO SCH (09:48)
[2018-10-18] MEDS: Aspirin Enteric Coated 325 MG Tablet PO SCH (09:48)
[2018-10-18] MEDS: Metoprolol XL (24 HR) Succ 50 MG TAB.ER.24H PO SCH (09:48)
[2018-10-18] MEDS ORDERED: Melatonin 3 MG TABLET PO PRN (14:49)
[2018-10-18] MEDS ORDERED: Albuterol 2.5 MG/3 ML NEBULIZER IH PRN (14:49)
[2018-10-18] MEDS ORDERED: Nitroglycerin 0.4 MG TAB.SUBL SL PRN (14:49)
[2018-10-18] MEDS ORDERED: Naloxone 0.4 MG/ML INJ IVP PRN (14:49)
[2018-10-19] MEDS: MetroNIDAZOLE 500 MG/100 ML 500 MG/100 ML BAG IVPB SCH ×4 (00:30→23:44)
[2018-10-19 05:35] LABS: Basophils % 0.1 %; Eosinophils % 0.2 %; Hematocrit 31.2 % (37.5-50.1); Immature Granulocytes % 0.9 % (0-4); Lymphocytes # 0.6 K/mcL (0.6-4.6); Lymphocytes % 5.8 %; Mean Corpuscular HGB Conc 32.1 g/dL (31.6-35.5); Mean Corpuscular Volume 93.7 fL (83.0-100.0); Mean Platelet Volume 11.7 fL (9.4-12.4); Monocytes # 0.7 K/mcL (0.0-1.3); Monocytes % 6.6 %; Nucleated Red Blood Cells 0.2 /100 WBC (0); Platelet Count 127 K/mcL (140-400); Red Blood Count 3.33 M/mcL (4.19-5.50); Red Cell Distribution Width 18.6 % (11.5-14.5); Segmented Neutrophils % 86.4 %; White Blood Count 9.8 K/mcL (4.3-11.1)
[2018-10-19 05:49] LABS: Calcium 7.7 mg/dL (8.6-10.3); Potassium 4.3 mEq/L (3.5-5.1)
[2018-10-19 05:55] LABS: Neutrophils # 8.5 K/mcL (1.6-8.9)
[2018-10-19 06:16] LABS: Anisocytosis 1+ (Not Present); Hypochromasia Present (Not Present); Platelet Estimate Slight Decrease (Normal); Reactive Lymphocytes Present (Not Present)
--- NOTE | 2018-10-19 06:34 | Internal Med Progress Note ---
<Suresh Shaw - Last Filed: 10/19/18 16:59> Hospitalist Progress Note - Encounter Date of Encounter: 10/19/18 - Exam Vitals: Temp Pulse Resp BP Pulse Ox 97.6 F 70 18 116/71 94 10/19/18 11:25 10/19/18 16:43 10/19/18 16:43 10/19/18 16:43 10/19/18 16:43 - Assessment and Plan (1) Hyponatremia Current Visit: Yes Status: Acute (2) C. difficile colitis Current Visit: Yes Status: Acute (3) CHF (congestive heart failure) Current Visit: No Status: Acute (4) Goals of care, counseling/discussion Current Visit: Yes Status: Acute (5) Acute on chronic kidney failure Current Visit: Yes Status: Suspected (6) Acute metabolic encephalopathy Current Visit: Yes Status: Acute - Time Spent with Patient Total time spent is greater than 50% in coordination of care (as documented) at patient's floor/unit and/or counseling patient: Internal Medicine: Result - Labs CBC & Chem 7: 10/19/18 04:20 10/19/18 04:20 Labs: Short CBC 10/19/18 Range/Units 04:20 WBC 9.8 (4.3-11.1) K/mcL Hgb 10.0 L (12.9-16.9) g/dL Hct 31.2 L (37.5-50.1) % Plt Count 127 L (140-400) K/mcL Neutrophils # 8.5 (1.6-8.9) K/mcL BMP 10/19/18 04:20 Sodium 132 L Potassium 4.3 Chloride 95 L Carbon Dioxide 23 BUN 85 H Creatinine 2.55 H Glucose 127 H Calcium 7.7 L - ABG Interpretation ABG results: PT/INR, D-dimer PT 15.3 Seconds (9.4-12.1) H 10/12/18 22:54 Consult Discharge Plan - Plan [facility]errals: [facility] [Primary Care Provider] - (patient is home based care. I left a message with them to give us a call back) - Attending Attestation I examined this patient and my medical decision-making was reviewed with the Resident Physician on 10/19/18. I agree with the documented findings, disposition and treatment plan as described except to the extent set forth below. Mr Landa is currently admitted for acute C diff colitis and renal failure. He remains moderate to high risk due to potential for worsening clinical status. Mr Landa is somnolent. He received Seroquel last night. Has not been eating much over last 2+ days. No fever or chills. WBC now normal. Less stools. More edematous today - cautious use of Lasix now. Discharge planning - at this time family will not give choice for SNF - they do not feel he is ready to leave though it appears he has improved overall. Nutrition is an issue. <Malcolm Welch - Last Filed: 10/19/18 17:40> Hospitalist Progress Note - Encounter Date of Encounter: 10/19/18 Time of Encounter: 06:27 - Subjective Interval History: Overnight the patient became agitated and began trying to hit nurses and grab at his IV. Seroquel was given around 10 PM. This morning the patient is extremely somnolent. He opens his right thigh and looks at me when I say his name or touch him on the shoulder lightly. He will not answer questions or speak. He has chronic titubation throughout that seems to be a worsening of his baseline. He seems to be grabbing at objects that are not there. - Exam Vitals: Temp Pulse Resp BP Pulse Ox 96.4 F L 66 14 108/69 98 10/19/18 03:33 10/19/18 04:28 10/19/18 03:33 10/19/18 03:33 10/19/18 03:33 Exam: Gen.: Elderly male. Sleeping and difficult to arouse. Skin: Turgor good. Erythematous region on lower extremity worsened. Cardio: Distant. Seems to be regular rate. Irregular rhythm. 2/6 systolic murmur. Capillary refill less than 2 seconds upper extremities bilaterally Respiratory: Anterior lung sounds distant. Some crackles heard. Extremities: Likely 3+ pitting edema to the knees. Likely 2+ pitting edema above the knees into the groin area worse on the left. Erythematous region of I believe the left leg worsened Psychiatric: Arouses to vocal and light touch stimulation. We will open right eye and look at me. Will not answer questions. Very somnolent. - Assessment and Plan (1) C. difficile colitis Current Visit: Yes Status: Acute Assessment and Plan: -ongoing. was on outpt vanc 125 mg Po q6 per chart. thought to be the source of sepsis on pt admission -baseline diarrhea. -nursing reports no stools since the . Cumulative I/O daily: -280mL. Hyponatremia as below. -Vanc 500 mg by mouth 4 times daily day 6. Metronidazole 500 3 times a day IV day 7. (2) Encephalopathy Current Visit: Yes Status: Acute Assessment and Plan: -likely 2/2 sepsis -patient's baseline is severely demented -SIRS: 2/4 with WBC 12.6 and respiratory rate 22 day of admission -lactic acid 2.7 on admission; blood cultures 10/12/18 x2 negative final -Vancomycin and metronidazole as above. -10/19/18: Mental cognition decline as above. Likely secondary to Seroquel. (3) Acute on chronic kidney failure Current Visit: Yes Status: Suspected Assessment and Plan: -likely prerenal 2/2 dehydration. -decreased urine output per home nurse. Baseline renal function unknown. -initial BUN/Cr was 66/2.84. creatinine continues to improve. -metabolic acidosis corrected with bicarb drip. gap stable. -No dialysis needed per nephro (4) Hyponatremia Current Visit: Yes Status: Acute Assessment and Plan: -normal serum osmolality so likely some component of pseudohyponatremia -consider 2/2 hypovolemia as began to improve on 10/13/18 after 4L normal saline IVF -124 on admission. 132 on 10/17/18. -7 L sodium bicarb therapy total stopped 10/16/18. (5) CHF (congestive heart failure) Current Visit: No Status: Acute Assessment and Plan: -systolic -Likely 2/2 CAD -no echo on record. -Troponin and EKG as below 10/19/18 -20 IV twice a day furosemide as lower extremity edema had worsened. (6) NSTEMI (non-ST elevated myocardial infarction) Current Visit: Yes Status: Acute Assessment and Plan: -likely 2/2 hypovolemia and demand ischemia (Type 2) -Trop 0.19-0.22. EKG showed prolonged OK interval and read as suggestive of lateral ischemia 2/2 repolarization abnormality -no further treatment pursued (7) Palliative care encounter Current Visit: Yes Status: Acute Assessment and Plan: -family transitioned from DNR-arrest to DNR/DNI. -PT/OT recommend SNF 10/19/18 -SNF [facility] - Time Spent with Patient Total time spent is greater than 50% in coordination of care (as documented) at patient's floor/unit and/or counseling patient: Internal Medicine: Result - Labs CBC & Chem 7: 10/19/18 04:20 10/19/18 04:20 Labs: Short CBC 10/19/18 Range/Units 04:20 WBC 9.8 (4.3-11.1) K/mcL Hgb 10.0 L (12.9-16.9) g/dL Hct 31.2 L (37.5-50.1) % Plt Count 127 L (140-400) K/mcL Neutrophils # 8.5 (1.6-8.9) K/mcL BMP 10/19/18 04:20 Sodium 132 L Potassium 4.3 Chloride 95 L Carbon Dioxide 23 BUN 85 H Creatinine 2.55 H Glucose 127 H Calcium 7.7 L - ABG Interpretation ABG results: PT/INR, D-dimer PT 15.3 Seconds (9.4-12.1) H 10/12/18 22:54 _ <Suresh Shaw - Last Filed: 10/19/18 16:59> (3) CHF (congestive heart failure) Qualifiers: Heart failure type: systolic Heart failure chronicity: chronic Qualified Code(s): I50.22 - Chronic systolic (congestive) heart failure (5) Acute on chronic kidney failure Qualifiers: Acute renal failure type: with acute tubular necrosis Chronic kidney disease stage: stage 3 (moderate) Qualified Code(s): N17.0 - Acute kidney failure with tubular necrosis; N18.3 - Chronic kidney disease, stage 3 (moderate) <Malcolm Welch - Last Filed: 10/19/18 17:40> (3) Acute on chronic kidney failure Qualifiers: Acute renal failure type: with acute tubular necrosis Chronic kidney disease stage: stage 3 (moderate) Qualified Code(s): N17.0 - Acute kidney failure with tubular necrosis; N18.3 - Chronic kidney disease, stage 3 (moderate) (5) CHF (congestive heart failure) Qualifiers: Heart failure type: systolic Heart failure chronicity: chronic Qualified Code(s): I50.22 - Chronic systolic (congestive) heart failure
[2018-10-19] MEDS: Vancomycin Oral Soln 125 MG/2.5 ML UDC PO SCH ×4 (10:43→20:45)
[2018-10-19] MEDS: Finasteride 5 MG TABLET PO SCH (10:43)
[2018-10-19] MEDS: Aspirin Enteric Coated 325 MG Tablet PO SCH (10:43)
[2018-10-19] MEDS: Metoprolol XL (24 HR) Succ 50 MG TAB.ER.24H PO SCH (17:22)
[2018-10-19] MEDS: Furosemide 20 MG/2 ML VIAL IVP SCH (17:32)
[2018-10-19] MEDS ORDERED: Amiodarone Premix 360 MG/200 ML BAG IVC ONE (20:11)
[2018-10-19] MEDS ORDERED: Amiodarone Premix 150 MG/100 ML BAG IVPB ONE (20:11)
[2018-10-19] MEDS ORDERED: 0.9 % Sodium Chloride 1,000 ML IVC SCH (20:15)
[2018-10-19] MEDS ORDERED: Amiodarone Premix 360 MG/200 ML BAG IVC SCH (20:15)
[2018-10-19 20:58] LABS: Calcium 8.1 mg/dL (8.6-10.3); Magnesium 2.2 mg/dL (1.6-2.6); Potassium 3.3 mEq/L (3.5-5.1)
[2018-10-20 02:29] LABS: Basophils % 0.1 %; Eosinophils # 0.1 K/mcL (0.0-0.6); Eosinophils % 0.4 %; Hematocrit 32.3 % (37.5-50.1); Hemoglobin 10.4 g/dL (12.9-16.9); Immature Granulocytes % 0.9 % (0-4); Lymphocytes # 0.5 K/mcL (0.6-4.6); Lymphocytes % 4.3 %; Mean Corpuscular HGB Conc 32.2 g/dL (31.6-35.5); Mean Corpuscular Hemoglobin 30.1 pg (28.0-33.3); Mean Corpuscular Volume 93.6 fL (83.0-100.0); Mean Platelet Volume 11.6 fL (9.4-12.4); Monocytes # 0.8 K/mcL (0.0-1.3); Monocytes % 6.2 %; Nucleated Red Blood Cells 0.2 /100 WBC (0); Platelet Count 158 K/mcL (140-400); Red Blood Count 3.45 M/mcL (4.19-5.50); Red Cell Distribution Width 19.2 % (11.5-14.5); Segmented Neutrophils % 88.1 %; White Blood Count 12.1 K/mcL (4.3-11.1)
[2018-10-20 02:33] LABS: Neutrophils # 10.7 K/mcL (1.6-8.9)
[2018-10-20 02:47] LABS: Calcium 8.1 mg/dL (8.6-10.3); Potassium 3.3 mEq/L (3.5-5.1)
[2018-10-20 02:59] LABS: Anisocytosis 1+ (Not Present); Hypochromasia Present (Not Present); Platelet Estimate Normal (Normal); Reactive Lymphocytes Present (Not Present)
--- NOTE | 2018-10-20 06:34 | Internal Med Progress Note ---
<Malcolm Welch - Last Filed: 10/20/18 14:34> Hospitalist Progress Note - Encounter Date of Encounter: 10/20/18 Time of Encounter: 06:30 - Subjective Interval History: Patient says he feels about the same as yesterday. He denies any recent bowel movements. He is much more mentally coherent. No somnolence. - Exam Vitals: Temp Pulse Resp BP Pulse Ox 97.7 F 76 18 104/64 93 10/20/18 03:34 10/20/18 03:34 10/20/18 03:34 10/20/18 05:00 10/20/18 03:34 Exam: Gen.: Elderly male in no acute distress Skin: Good turgor. Bilateral erythematous areas on lower extremities gastrocnemius area. Neck: No appreciable JVD or hepatojugular reflex Cardio: Irregular rhythm with regular rate. 3/6 systolic murmur heard throughout Respiratory: CTA anteriorly Extremities: 2+ pitting edema bilateral lower extremities to the knee. Capillary refill less than 2 seconds upper extremities Neuro: Alert and oriented 3. He does not know why he is here. Cranial nerves III, 4, 5, 6 intact. Phonation intact. Gross strength and sensation upper and lower extremities intact. Psych: Answers questions appropriately. Normal behavior. - Assessment and Plan (1) NSVT (nonsustained ventricular tachycardia) Current Visit: Yes Status: Acute Assessment and Plan: 10/20/18 -likely 2/2 structural changes in the heart vs. hypokalemia -history of systolic heart failure with EF 30%. AICD outpatient readings have shown this rhythm before. -tele has shown NSVT beginning the day of 10/19/18. repeat troponins continue to trend downwards. EKG read as having possible new ST-T wave depressions in precordial leads. Amiodarone last night did not resolve. -cardiology consulted. K and Mag repletion. d/c amio after 24 hours. cont. metoprolol. (2) C. difficile colitis Current Visit: Yes Status: Acute Assessment and Plan: -ongoing. was on outpt vanc 125 mg Po q6 per chart. thought to be the source of sepsis on pt admission -baseline diarrhea. -nursing reports no stools since the . Cumulative I/O daily: 300mL. Hyponatremia and hypokalemia. -Vanc 500 mg by mouth 4 times daily day 7. 10/20/18 -Metronidazole d/c'd (3) Encephalopathy Current Visit: Yes Status: Acute Assessment and Plan: -likely 2/2 sepsis -patient's baseline is severely demented -SIRS: 2/4 with WBC 12.6 and respiratory rate 22 day of admission -lactic acid 2.7 on admission; blood cultures 10/12/18 x2 negative final -Vancomycin and as above. 10/19/18 -Mental cognition decline as above. Likely secondary to Seroquel. 10/20/18 -Mental status improved (4) Acute on chronic kidney failure Current Visit: Yes Status: Suspected Assessment and Plan: -likely prerenal 2/2 dehydration. -decreased urine output per home nurse. Baseline renal function unknown. -initial BUN/Cr was 66/2.84. creatinine continues to improve. -metabolic acidosis corrected with bicarb drip. gap stable. -No dialysis needed per nephro 10/20/18 -Gap 13 (5) CHF (congestive heart failure) Current Visit: No Status: Acute Assessment and Plan: -systolic -Likely 2/2 CAD -Outpatient echo EF 33% -Troponin and EKG as below -Beta fadi, statin, aspirin. ACEi held due to kidney injury. 10/19/18 -20 IV twice a day furosemide as lower extremity edema had worsened. 10/20/18 -recent outpt echo per cardiology showed EF 33%. AICD checks showed NSVT as above. (6) NSTEMI (non-ST elevated myocardial infarction) Current Visit: Yes Status: Acute Assessment and Plan: -likely 2/2 hypovolemia and demand ischemia (Type 2) -Trop 0.19-0.22. EKG showed prolonged AR interval and read as suggestive of lateral ischemia 2/2 repolarization abnormality -no further treatment pursued 10/20/18 -repeat troponins as above (7) Atrial fibrillation Current Visit: Yes Status: Acute Assessment and Plan: 10/20/18 -chronic -declining anticoagulation per cards. -metoprolol. (8) Hyponatremia Current Visit: Yes Status: Acute Assessment and Plan: -normal serum osmolality so likely some component of pseudohyponatremia -consider 2/2 hypovolemia as began to improve on 10/13/18 after 4L normal saline IVF -124 on admission. 132 on 10/17/18. -7 L sodium bicarb therapy total stopped 10/16/18. 10/20/18 -Stable (9) Hypokalemia Current Visit: Yes Status: Acute Assessment and Plan: 10/20/18 -likely 2/2 C.Diff diarrhea history and poor oral intake -KCl 80 mEq total today -continue repletion (10) Palliative care encounter Current Visit: Yes Status: Acute Assessment and Plan: -family transitioned from DNR-arrest to DNR/DNI. -PT/OT recommend SNF 10/19/18 -SNF Likely to be [facility] in [place] 10/20/18 -Likely discharge next week. Family reluctant to choose facility. - Summary of Assessment and Plan Summary of Assessment and Plan: Non-sustained VTach 10/20/18 -likely 2/2 structural changes in the heart vs. hypokalemia -history of systolic heart failure with EF 30%. AICD outpatient readings have shown this rhythm before. -tele has shown NSVT beginning the day of 10/19/18. repeat troponins continue to trend downwards. EKG read as having possible new ST-T wave depressions in precordial leads. Amiodarone last night did not resolve. -cardiology consulted. K and Mag repletion. d/c amio after 24 hours. cont. metoprolol. A.Fib 10/20/18 -chronic -declining anticoagulation per cards. -metoprolol. Hypokalemia 10/20/18 -likely 2/2 C.Diff diarrhea history and poor oral intake -KCl 80 mEq total today -continue repletion (1) C. difficile colitis Current Visit: Yes Status: Acute Assessment and Plan: -ongoing. was on outpt vanc 125 mg Po q6 per chart. thought to be the source of sepsis on pt admission -baseline diarrhea. -nursing reports no stools since the . Cumulative I/O daily: 300mL. Hyponatremia and hypokalemia. -Vanc 500 mg by mouth 4 times daily day 7. 10/20/18 -Metronidazole d/c'd (2) Encephalopathy Current Visit: Yes Status: Acute Assessment and Plan: -likely 2/2 sepsis -patient's baseline is severely demented -SIRS: 2/4 with WBC 12.6 and respiratory rate 22 day of admission -lactic acid 2.7 on admission; blood cultures 10/12/18 x2 negative final -Vancomycin and as above. 10/19/18 -Mental cognition decline as above. Likely secondary to Seroquel. 10/20/18 -Mental status improved (3) Acute on chronic kidney failure Current Visit: Yes Assessment and Plan: -likely prerenal 2/2 dehydration. -decreased urine output per home nurse. Baseline renal function unknown. -initial BUN/Cr was 66/2.84. creatinine continues to improve. -metabolic acidosis corrected with bicarb drip. gap stable. -No dialysis needed per nephro 10/20/18 -Gap 13 (4) Hyponatremia Current Visit: Yes Assessment and Plan: -normal serum osmolality so likely some component of pseudohyponatremia -consider 2/2 hypovolemia as began to improve on 10/13/18 after 4L normal saline IVF -124 on admission. 132 on 10/17/18. -7 L sodium bicarb therapy total stopped 10/16/18. 10/20/18 -Stable (5) CHF (congestive heart failure) Current Visit: No Status: Acute Assessment and Plan: -systolic -Likely 2/2 CAD -Outpatient echo EF 33% -Troponin and EKG as below 10/19/18 -20 IV twice a day furosemide as lower extremity edema had worsened. 10/20/18 -recent outpt echo per cardiology showed EF 33%. AICD checks showed NSVT as above. (6) NSTEMI (non-ST elevated myocardial infarction) Current Visit: Yes Status: Acute Assessment and Plan: -likely 2/2 hypovolemia and demand ischemia (Type 2) -Trop 0.19-0.22. EKG showed prolonged AR interval and read as suggestive of lateral ischemia 2/2 repolarization abnormality -no further treatment pursued 10/20/18 -nn (7) Palliative care encounter Current Visit: Yes Status: Acute Assessment and Plan: -family transitioned from DNR-arrest to DNR/DNI. -PT/OT recommend SNF 10/19/18 -SNF Likely to be [facility] in [place] 10/20/18 -Likely discharge next week. Family reluctant to choose facility. - Time Spent with Patient Total time spent is greater than 50% in coordination of care (as documented) at patient's floor/unit and/or counseling patient: Internal Medicine: Result - Labs CBC & Chem 7: 10/20/18 01:51 10/20/18 01:51 Labs: Short CBC 10/20/18 Range/Units 01:51 WBC 12.1 H (4.3-11.1) K/mcL Hgb 10.4 L (12.9-16.9) g/dL Hct 32.3 L (37.5-50.1) % Plt Count 158 (140-400) K/mcL Neutrophils # 10.7 H (1.6-8.9) K/mcL BMP 10/19/18 10/20/18 20:26 01:51 Sodium 136 135 L Potassium 3.3 L 3.3 L Chloride 94 L 95 L Carbon Dioxide 30 H 27 BUN 89 H 88 H Creatinine 2.57 H 2.50 H Glucose 161 H 168 H Calcium 8.1 L 8.1 L Cardiac Enzymes 10/19/18 Range/Units 20:26 Troponin I 0.07 H* (< 0.04) ng/mL - ABG Interpretation ABG results: PT/INR, D-dimer PT 15.3 Seconds (9.4-12.1) H 10/12/18 22:54 Consult Discharge Plan - Plan [facility]errals: [facility] [Primary Care Provider] - (Patient is home base care, patient is going to ECF no PCP appointment needed) <Suresh Shaw - Last Filed: 10/20/18 14:49> Hospitalist Progress Note - Encounter Date of Encounter: 10/20/18 - Exam Vitals: Temp Pulse Resp BP Pulse Ox 97.9 F 75 18 117/77 97 10/20/18 07:59 10/20/18 07:59 10/20/18 07:59 10/20/18 07:59 10/20/18 07:59 - Assessment and Plan (1) Hyponatremia Current Visit: Yes Status: Acute (2) C. difficile colitis Current Visit: Yes Status: Acute (3) CHF (congestive heart failure) Current Visit: No Status: Acute (4) Goals of care, counseling/discussion Current Visit: Yes Status: Acute (5) Acute on chronic kidney failure Current Visit: Yes Status: Suspected (6) Acute metabolic encephalopathy Current Visit: Yes Status: Acute - Time Spent with Patient Total time spent is greater than 50% in coordination of care (as documented) at patient's floor/unit and/or counseling patient: Internal Medicine: Result - Labs CBC & Chem 7: 10/20/18 01:51 10/20/18 01:51 Labs: Short CBC 10/20/18 Range/Units 01:51 WBC 12.1 H (4.3-11.1) K/mcL Hgb 10.4 L (12.9-16.9) g/dL Hct 32.3 L (37.5-50.1) % Plt Count 158 (140-400) K/mcL Neutrophils # 10.7 H (1.6-8.9) K/mcL BMP 10/19/18 10/20/18 20:26 01:51 Sodium 136 135 L Potassium 3.3 L 3.3 L Chloride 94 L 95 L Carbon Dioxide 30 H 27 BUN 89 H 88 H Creatinine 2.57 H 2.50 H Glucose 161 H 168 H Calcium 8.1 L 8.1 L Cardiac Enzymes 10/19/18 Range/Units 20:26 Troponin I 0.07 H* (< 0.04) ng/mL - ABG Interpretation ABG results: PT/INR, D-dimer PT 15.3 Seconds (9.4-12.1) H 10/12/18 22:54 - Attending Attestation I examined this patient and my medical decision-making was reviewed with the Resident Physician on 10/20/18. I agree with the documented findings, disposition and treatment plan as described except to the extent set forth below. Mr Landa is currently admitted for acute C diff colitis. He remains moderate to high risk due to potential for worsening clinical status. Mr Landa is more alert today. He says his taste is an issue and he is not hungry. Denies pain. Wants to get up. No fever or chills. Exam: Alert. Comfortable. NC. Neck supple. Heart not tachy now. Lungs clear now. ABd soft and nontender. Edema present bilateral LE with stasis changes bilaterally. No tremor today. No rash. Had NSVT last night - prior hx of systolic heart failure with AICD. K and Mag replaced. Flagyl to be stopped today - ? if related to issues with eating (metallic taste). Working on d/c planning. Family still has not chosen a facility. <Malcolm Welch - Last Filed: 10/20/18 14:34> (4) Acute on chronic kidney failure Qualifiers: Acute renal failure type: with acute tubular necrosis Chronic kidney disease stage: stage 3 (moderate) Qualified Code(s): N17.0 - Acute kidney failure with tubular necrosis; N18.3 - Chronic kidney disease, stage 3 (moderate) (5) CHF (congestive heart failure) Qualifiers: Heart failure type: systolic Heart failure chronicity: chronic Qualified Code(s): I50.22 - Chronic systolic (congestive) heart failure (7) Atrial fibrillation Qualifiers: Atrial fibrillation type: paroxysmal Qualified Code(s): I48.0 - Paroxysmal atrial fibrillation <Suresh Shaw - Last Filed: 10/20/18 14:49> (3) CHF (congestive heart failure) Qualifiers: Heart failure type: systolic Heart failure chronicity: chronic Qualified Code(s): I50.22 - Chronic systolic (congestive) heart failure (5) Acute on chronic kidney failure Qualifiers: Acute renal failure type: with acute tubular necrosis Chronic kidney disease stage: stage 3 (moderate) Qualified Code(s): N17.0 - Acute kidney failure with tubular necrosis; N18.3 - Chronic kidney disease, stage 3 (moderate)
[2018-10-20] MEDS: Furosemide 20 MG/2 ML VIAL IVP SCH ×2 (09:50→18:23)
[2018-10-20] MEDS: MetroNIDAZOLE 500 MG/100 ML 500 MG/100 ML BAG IVPB SCH (09:53)
[2018-10-20] MEDS: Finasteride 5 MG TABLET PO SCH (10:07)
[2018-10-20] MEDS: Vancomycin Oral Soln 125 MG/2.5 ML UDC PO SCH ×4 (10:08→20:37)
[2018-10-20] MEDS: Metoprolol XL (24 HR) Succ 50 MG TAB.ER.24H PO SCH (10:11)
[2018-10-20] MEDS: Aspirin Enteric Coated 325 MG Tablet PO SCH (10:11)
--- NOTE | 2018-10-20 11:26 | Cardiology Consult Note ---
Date of Encounter: 10/20/18 Time of Encounter: 09:00 Assessment and Plan (1) C. difficile colitis Current Visit: Yes Status: Acute Managment per primary team. (2) NSVT (nonsustained ventricular tachycardia) Current Visit: Yes Status: Acute Small frequent runs NSVT seen overnight. Likely increased due to hypokalemia in setting of c-diff. Pt with ICD in place. H/o NSVT seen on prior device checks. Recommend amiodarone gtt for 24 hours while replacing potassium. Keep potassium 4.0 or greater and magnesium at 2.0 and above. D/c amiodarone after 24 hours do not suspect he will need exterminator helper. Continue metoprolol. No further testing at this time. (3) Ischemic cardiomyopathy Current Visit: Yes Status: Acute H/o ICMP. EF 30%. ICD in place. Continue bb. No MINH I due to VANESSA. (4) CHF (congestive heart failure) Current Visit: No Status: Acute Acute on chronic HFrEF. BLE edema noted. Net positive 10L + for stay. Agree with IV lasix. Diuresis until euvolemic. Strict I&O and daily weights. Low sodium diet. Caution with IV fluid. Qualifiers: Heart failure type: systolic Heart failure chronicity: chronic Qualified Code(s): I50.22 - Chronic systolic (congestive) heart failure (5) Atrial fibrillation Current Visit: Yes Status: Acute H/o PAF who declines AC. Now NSR with PVC, NSVT. Qualifiers: Atrial fibrillation type: paroxysmal Qualified Code(s): I48.0 - Paroxysmal atrial fibrillation Discussion w patient/family: The assessment and plan as outlined above was discussed with the patient and/or family members who expressed understanding and agreement. All questions were answered. Thank you for involving us in the care of your patient. Please call with any questions. History of Present Illness Consult date: 10/21/18 Requesting physician: Suresh Shaw Consult reason: NSVT Chief complaint: "I'm sick" History of present illness: Mr. Landa is a 88 year old male with a history of CAD, [place] s/p PCI 2005, ischemic cardiomyopathy, primary prevention ICD, and PAF (elects not take Coumadin or any AC for PAF). Pt in hospital with c-dif colitis. Cardiology consulted today for NSVT seen on telemetry overnight. He was place on amiodarone gtt by primary team. On my exam patient is confused. He denies chest pain, SOB, or palpitations. BLE edema noted. Previous testing: Device interrogation 01/2018: Normal device function. 12 mode switches, con sistent with atrial fibrillation. ECG 05/06/2015: Sinus rhythm, first degree AV block, LVH, ST-T wave changes due to LVH and/or ischemia. Pharmacological nuclear stress test 05/21/2015: Fixed perfusion defect involving the inferior and inferolateral segments consistent with a prior myocardial infarction. No evidence of ischemia. TTE 05/21/2015: LVEF 30%. Akinesis of the basal to mid inferior, inferoseptal, and inferolateral segments. Hypokinesis of the remaining segments. Mild AI, MR. Borderline mild pulmonary hypertension. Past Med Surg Social Fam HX - Past Medical History Medical history: cardiomyopathy, CHF, coronary artery disease, dementia, renal disease (CKD stage 2) Additional medical history: Not assessable- patient unsure Psychiatric history: no psych history - Past Surgical History Surgical History: angioplasty/stent, pacemaker/AICD - Social History Smoking Status: Never smoker Smokeless Tobacco Status: No Alcohol use: none Drug use: none - Family History Mother History Unknown: Yes Living Status: Father History Unknown: Yes Living Status: Medications and Allergies Allopurinol [Zyloprim 100 MG] 200 mg PO DAILY 10/12/18 [History] Aspirin [Ecotrin] 325 mg PO DAILY 10/12/18 [History] Atorvastatin Calcium [Lipitor] 10 mg PO HS 10/12/18 [History] Bisacodyl [Woman's Laxative] 5 mg PO DAILY PRN 10/12/18 [History] Cholecalciferol (D-3) [Vitamin D] 2,000 unit PO DAILY 10/12/18 [History] Cyanocobalamin (B-12) [Vitamin B12] 1,000 mcg PO DAILY 10/12/18 [History] Docusate Sodium [Dulcolax Stool Softener] 200 mg PO BID PRN 10/12/18 [History] Ferrous Gluconate 324 mg PO DAILY 10/12/18 [History] Finasteride [Proscar] 5 mg PO DAILY 10/12/18 [History] Furosemide [Lasix] 40 mg PO BID 10/12/18 [History] Lactobac #2-S. Therm-Bifido #1 [Visbiome 112.5 Billion Capsule] 1 each PO DAILY 10/12/18 [History] Lisinopril [Zestril] 10 mg PO DAILY 10/12/18 [History] Melatonin [Melatin] 6 mg PO HS 10/12/18 [History] Metoprolol Succinate [Toprol Xl] 100 mg PO DAILY 10/12/18 [History] Multivit-Min/FA/Lycopen/Lutein [Senior Tabs] 1 each PO DAILY 10/12/18 [History] Nitroglycerin [Nitrostat] 0.4 mg SL PRN PRN 10/12/18 [History] Omeprazole [PriLOSEC] 20 mg PO DAILY 10/12/18 [History] Polyethylene Glycol 3350 [MiraLAX] 17 gm PO DAILY 10/12/18 [History] Potassium Chloride [Klor-Con 10] 10 meq PO DAILY 10/12/18 [History] Sennosides [Evac-U-Gen] 8.6 mg PO BID PRN 10/12/18 [History] Spironolactone [Aldactone] 12.5 mg PO DAILY 10/12/18 [History] Tamsulosin HCl [Flomax] 0.8 mg PO HS 10/12/18 [History] Miconazole Nitrate [Aloe [place]] 1 appl TP QID PRN 10/14/18 [History] Vancomycin HCl 125 mg PO Q6H 10/14/18 [History] Allergy/AdvReac Type Severity Reaction Status Date / Time No Known Allergies Allergy Unverified 10/14/18 13:12 All Systems Review: The remainder of the systems were reviewed and are negative Physical Examination Vital Signs, Last 4 Hours Temp Pulse Resp BP Pulse Ox 10/20/18 07:59 97.9 F 75 18 117/77 97 General: Conversant, No Apparent Distress, Other (Confused) HEENT: Atraumatic, Normocephaly, Mucus Membranes Moist Neck: No JVD, Normal carotid pulses Cardiac: Reg Rate and Rhythm, Normal S1 and S2, No Murmur Lungs: Normal Breath Sounds, No Wheeze, Rales, Rhonchi Neuro: Alert and responsive, No focal deficits noted Abdomen: Soft, Non-Tender Skin: No rashes noted on visualized skin Musculoskeletal: No Chest Wall Tenderness Extremities: No Clubbing, No Cyanosis, Normal Pulses, Other (2+ pitting edema BLE. ) Results 10/20/18 01:51 10/20/18 01:51 Lab Results 10/19/18 10/19/18 10/20/18 20:26 20:26 01:51 WBC 12.1 H Hgb 10.4 L Hct 32.3 L Plt Count 158 Sodium 136 Potassium 3.3 L Chloride 94 L Carbon Dioxide 30 H BUN 89 H Creatinine 2.57 H Glucose 161 H Calcium 8.1 L Magnesium 2.2 Troponin I 0.07 H* 10/20/18 01:51 WBC Hgb Hct Plt Count Sodium 135 L Potassium 3.3 L Chloride 95 L Carbon Dioxide 27 BUN 88 H Creatinine 2.50 H Glucose 168 H Calcium 8.1 L Magnesium Troponin I - Imaging and Cardiology Echo: report reviewed - EKG Interpretation EKG results cardiology: personally reviewed Consult Discharge Plan - Plan [facility]errals: [facility] [Primary Care Provider] - (Patient is home base care, patient is going to ECF no PCP appointment needed)
[2018-10-20] MEDS ORDERED: Potassium Chloride Elixir 20 MEQ/15 ML UDC PO ONE (12:00)
--- NOTE | 2018-10-20 12:02 | Event Note ---
Date of Encounter: 10/20/18 Time of Encounter: 11:59 - Cardiology Event Note I have personally performed a face to face evaluation on this patient. I have reviewed and agree with the care plan. History and Exam by me shows: 88 YOM with hx of CAD, s/p PCI 2005 ICM s/p ICD with moderate LV dysfunction here with C diff colitis found to have NSVT on monitor in setting of hypokalemia. Correct underlying C diffe and K levels and continue to monitor. No indication for terminal gauger supervisor amiodarone.
--- NOTE | 2018-10-20 12:52 | Event Note ---
Date of Encounter: 10/20/18 Time of Encounter: 11:00 Patient is awake and alert, sitting up in chair. No family is present. Denies any complaints. Communicates well when hearing aides in. Cardiology noted reviewed - does not think requires amiodarone mcc. He will need placement, family has been reluctant to choose facility. Palliative not managing any symptoms, code status established. Will sign off. Please do not hesitate to call if needed.
--- NOTE | 2018-10-20 14:38 | Electrocardiograph Report ---
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
[2018-10-21 02:10] LABS: Basophils % 0.2 %; Eosinophils # 0.1 K/mcL (0.0-0.6); Eosinophils % 0.7 %; Hematocrit 33.7 % (37.5-50.1); Hemoglobin 10.4 g/dL (12.9-16.9); Lymphocytes # 0.4 K/mcL (0.6-4.6); Lymphocytes % 3.4 %; Mean Corpuscular HGB Conc 30.9 g/dL (31.6-35.5); Mean Corpuscular Hemoglobin 30.1 pg (28.0-33.3); Mean Corpuscular Volume 97.4 fL (83.0-100.0); Mean Platelet Volume 11.6 fL (9.4-12.4); Monocytes # 0.8 K/mcL (0.0-1.3); Monocytes % 6.2 %; Neutrophils # 11.6 K/mcL (1.6-8.9); Nucleated Red Blood Cells 0.2 /100 WBC (0); Platelet Count 163 K/mcL (140-400); Red Blood Count 3.46 M/mcL (4.19-5.50); Red Cell Distribution Width 19.4 % (11.5-14.5); Segmented Neutrophils % 88.5 %; White Blood Count 13.1 K/mcL (4.3-11.1)
[2018-10-21 02:27] LABS: Calcium 8.4 mg/dL (8.6-10.3); Magnesium 2.2 mg/dL (1.6-2.6); Phosphorous 3.8 mg/dL (2.7-4.5); Potassium 3.6 mEq/L (3.5-5.1)
[2018-10-21] MEDS: *HR* Heparin 5,000 UNIT/ML VIAL SQ SCH ×2 (05:23→17:20)
--- NOTE | 2018-10-21 06:59 | Internal Med Progress Note ---
<Suresh Shaw - Last Filed: 10/21/18 16:47> Hospitalist Progress Note - Encounter Date of Encounter: 10/21/18 - Exam Vitals: Temp Pulse Resp BP Pulse Ox 97.5 F L 80 16 101/77 95 10/21/18 15:16 10/21/18 15:16 10/21/18 15:16 10/21/18 15:16 10/21/18 07:11 - Assessment and Plan (1) Hyponatremia Current Visit: Yes Status: Acute (2) C. difficile colitis Current Visit: Yes Status: Acute (3) CHF (congestive heart failure) Current Visit: No Status: Acute (4) Goals of care, counseling/discussion Current Visit: Yes Status: Acute (5) Acute on chronic kidney failure Current Visit: Yes Status: Suspected (6) Acute metabolic encephalopathy Current Visit: Yes Status: Acute - Time Spent with Patient Total time spent is greater than 50% in coordination of care (as documented) at patient's floor/unit and/or counseling patient: Internal Medicine: Result - Labs CBC & Chem 7: 10/21/18 01:40 10/21/18 01:40 Labs: Short CBC 10/21/18 Range/Units 01:40 WBC 13.1 H (4.3-11.1) K/mcL Hgb 10.4 L (12.9-16.9) g/dL Hct 33.7 L (37.5-50.1) % Plt Count 163 (140-400) K/mcL Neutrophils # 11.6 H (1.6-8.9) K/mcL BMP 10/21/18 01:40 Sodium 136 Potassium 3.6 Chloride 98 Carbon Dioxide 25 BUN 91 H Creatinine 2.43 H Glucose 145 H Calcium 8.4 L - ABG Interpretation ABG results: PT/INR, D-dimer PT 15.3 Seconds (9.4-12.1) H 10/12/18 22:54 Consult Discharge Plan - Plan [facility]errals: [facility]Primary Care Provider[facility] - (Patient is home 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 I agree with the documented findings, disposition and treatment plan as described except to the extent set forth below. Mr Landa is currently admitted for acute encephalopathy and acute C diff colitis. He remains moderate to high risk due to potential for worsening clinical status. Mr Landa is more oriented today. He answers questions appropriately. No fever or chills. Still awaiting decision on SNF. Exam: alert. Comfortable. Mucus membranes moist. NC. Neck supple. Heart not tachy. Lungs clear now. Abd nontender. Legs with stasis dermatitis. No rash. Edema present. Moves all extremities. Plan: Continue PO Vanc. Hopefully appetite will improve. D/C planning. <Malcolm Welch - Last Filed: 10/21/18 19:11> Hospitalist Progress Note - Encounter Date of Encounter: 10/21/18 Time of Encounter: 06:30 - Subjective Interval History: Patient says he feels same as yesterday. He has no complaints. He has had a decreased appetite. States that he is somewhat confused lately. He is more mentally intact than I have seen him to date. Some right upper quadrant tenderness on exam. He does not have a gallbladder. Will continue to monitor. - Exam Vitals: Temp Pulse Resp BP Pulse Ox 97.8 F 72 18 112/68 91 10/21/18 03:28 10/21/18 03:28 10/21/18 03:28 10/21/18 03:28 10/21/18 03:28 Exam: gen: elderlly male. resting comfortably. skin: good turgor. echymoses of b/l hands. cholecystectomy scar eyes: moist conjunctive. no icterus ENT: oral mucosa somewhat dry. no lesions on superior surface of tongue neck: no apparent JVD or hepatojugular reflex cardio: irregular rhythm. 2/6 systolic murmur best heard over tricuspid. regular rate. resp: CTA anteriorly GI: rebound tenderness over RUQ. nontender elsewhere. no fluid wave. some distension that I suspect is normal anatomy ext: 2+ pitting edema to the knee b/l worse on the R. simon stasis changes. neuro: a and o X3. CN 3,4,5,6 intact. phonation intact. tongue protrudees midline. hearing poor. strenght and sensation of extremities intact grossly. - Assessment and Plan (1) NSVT (nonsustained ventricular tachycardia) Current Visit: Yes Status: Acute Assessment and Plan: 10/20/18 -likely 2/2 structural changes in the heart vs. hypokalemia -history of systolic heart failure with EF 30%. AICD outpatient readings have shown this rhythm before. -tele has shown NSVT beginning the day of 10/19/18. repeat troponins continue to trend downwards. EKG read as having possible new ST-T wave depressions in precordial leads. Amiodarone last night did not resolve. -cardiology consulted. K and Mag repletion. d/c amio after 24 hours. cont. metoprolol. 10/21/18 -Decreased. Metoprolol. Cardiology signing off (2) C. difficile colitis Current Visit: Yes Status: Acute Assessment and Plan: -ongoing. was on outpt vanc 125 mg Po q6 per chart. thought to be the source of sepsis on pt admission -baseline diarrhea. -nursing reports no stools since the . Cumulative I/O daily: 300mL. Hyponatremia and hypokalemia. -Vanc 500 mg by mouth 4 times daily day 8. 10/20/18 -Metronidazole d/c'd 10/21/18 -No updates (3) Encephalopathy Current Visit: Yes Status: Acute Assessment and Plan: -likely 2/2 sepsis -patient's baseline is severely demented -SIRS: 2/4 with WBC 12.6 and respiratory rate 22 day of admission -lactic acid 2.7 on admission; blood cultures 10/12/18 x2 negative final -Vancomycin and as above. 10/19/18 -Mental cognition decline as above. Likely secondary to Seroquel. 10/20/18 -Mental status improved 10/21/18 -Mental status continues to improve (4) Acute on chronic kidney failure Current Visit: Yes Status: Suspected Assessment and Plan: -likely prerenal 2/2 dehydration. -decreased urine output per home nurse. Baseline renal function unknown. -initial BUN/Cr was 66/2.84. creatinine continues to improve. -metabolic acidosis corrected with bicarb drip. gap stable. -No dialysis needed per nephro 10/20/18 -Gap 13 10/21/18 -Gap 13 (5) CHF (congestive heart failure) Current Visit: No Status: Acute Assessment and Plan: -systolic -Likely 2/2 CAD -Outpatient echo EF 33% -Troponin and EKG as below -Beta fadi, statin, aspirin. ACEi held due to kidney injury. 10/19/18 -20 IV twice a day furosemide as lower extremity edema had worsened. 10/20/18 -recent outpt echo per cardiology showed EF 33%. AICD checks showed NSVT as above. 10/21/18 -Diuresis until euvolemic. Restart oral Lasix at discharge once euvolemic per cards. (6) NSTEMI (non-ST elevated myocardial infarction) Current Visit: Yes Status: Acute Assessment and Plan: -likely 2/2 hypovolemia and demand ischemia (Type 2) -Trop 0.19-0.22. EKG showed prolonged [place] interval and read as suggestive of lateral ischemia 2/2 repolarization abnormality -no further treatment pursued 10/20/18 -repeat troponins as above (7) Atrial fibrillation Current Visit: Yes Status: Acute Assessment and Plan: 10/20/18 -chronic -declining anticoagulation per cards. -metoprolol. (8) Hyponatremia Current Visit: Yes Status: Acute Assessment and Plan: -normal serum osmolality so likely some component of pseudohyponatremia -consider 2/2 hypovolemia as began to improve on 10/13/18 after 4L normal saline IVF -124 on admission. 132 on 10/17/18. -7 L sodium bicarb therapy total stopped 10/16/18. 10/20/18 -Stable 10/21/18 -Stable. Continue to monitor (9) Hypokalemia Current Visit: Yes Status: Acute Assessment and Plan: 10/20/18 -likely 2/2 C.Diff diarrhea history and poor oral intake -KCl 80 mEq total today -continue repletion 10/21/18 -3.6. KCl 20 mEq (10) Palliative care encounter Current Visit: Yes Status: Acute Assessment and Plan: -family transitioned from DNR-arrest to DNR/DNI. -PT/OT recommend SNF 10/19/18 -SNF Likely to be [facility] in [place] 10/20/18 -Likely discharge next week. Family reluctant to choose facility. 10/21/18 -Patient will go to [facility] (11) Right upper quadrant abdominal tenderness Current Visit: Yes Status: Acute Assessment and Plan: -Found on screening exam -The patient does not have a gallbladder. transaminitis on admission likely 2/2 sepsis. -morning repeat transaminases DVT Prophylaxis: subq hep - Summary of Assessment and Plan Summary of Assessment and Plan: (1) NSVT (nonsustained ventricular tachycardia) Current Visit: Yes Status: Acute Assessment and Plan: 10/20/18 -likely 2/2 structural changes in the heart vs. hypokalemia -history of systolic heart failure with EF 30%. AICD outpatient readings have shown this rhythm before. -tele has shown NSVT beginning the day of 10/19/18. repeat troponins continue to trend downwards. EKG read as having possible new ST-T wave depressions in precordial leads. Amiodarone last night did not resolve. -cardiology consulted. K and Mag repletion. d/c amio after 24 hours. cont. metoprolol. 10/21/18 -Decreased. Metoprolol. Cardiology signing off (2) C. difficile colitis Current Visit: Yes Status: Acute Assessment and Plan: -ongoing. was on outpt vanc 125 mg Po q6 per chart. thought to be the source of sepsis on pt admission -baseline diarrhea. -nursing reports no stools since the . Cumulative I/O daily: 300mL. Hyponatremia and hypokalemia. -Vanc 500 mg by mouth 4 times daily day 8. 10/20/18 -Metronidazole d/c'd 10/21/18 -No updates (3) Encephalopathy Current Visit: Yes Status: Acute Assessment and Plan: -likely 2/2 sepsis -patient's baseline is severely demented -SIRS: 2/4 with WBC 12.6 and respiratory rate 22 day of admission -lactic acid 2.7 on admission; blood cultures 10/12/18 x2 negative final -Vancomycin and as above. 10/19/18 -Mental cognition decline as above. Likely secondary to Seroquel. 10/20/18 -Mental status improved 10/21/18 -Mental status continues to improve (4) Acute on chronic kidney failure Current Visit: Yes Status: Suspected Assessment and Plan: -likely prerenal 2/2 dehydration. -decreased urine output per home nurse. Baseline renal function unknown. -initial BUN/Cr was 66/2.84. creatinine continues to improve. -metabolic acidosis corrected with bicarb drip. gap stable. -No dialysis needed per nephro 10/20/18 -Gap 13 10/21/18 -Gap 13 (5) CHF (congestive heart failure) Current Visit: No Status: Acute Assessment and Plan: -systolic -Likely 2/2 CAD -Outpatient echo EF 33% -Troponin and EKG as below -Beta fadi, statin, aspirin. ACEi held due to kidney injury. 10/19/18 -20 IV twice a day furosemide as lower extremity edema had worsened. 10/20/18 -recent outpt echo per cardiology showed EF 33%. AICD checks showed NSVT as above. 10/21/18 -Diuresis until euvolemic. Restart oral Lasix at discharge once euvolemic per cards. (6) NSTEMI (non-ST elevated myocardial infarction) Current Visit: Yes Status: Acute Assessment and Plan: -likely 2/2 hypovolemia and demand ischemia (Type 2) -Trop 0.19-0.22. EKG showed prolonged [place] interval and read as suggestive of lateral ischemia 2/2 repolarization abnormality -no further treatment pursued 10/20/18 -repeat troponins as above (7) Atrial fibrillation Current Visit: Yes Status: Acute Assessment and Plan: 10/20/18 -chronic -declining anticoagulation per cards. -metoprolol. (8) Hyponatremia Current Visit: Yes Status: Acute Assessment and Plan: -normal serum osmolality so likely some component of pseudohyponatremia -consider 2/2 hypovolemia as began to improve on 10/13/18 after 4L normal saline IVF -124 on admission. 132 on 10/17/18. -7 L sodium bicarb therapy total stopped 10/16/18. 10/20/18 -Stable 10/21/18 -Stable. Continue to monitor (9) Hypokalemia Current Visit: Yes Status: Acute Assessment and Plan: 10/20/18 -likely 2/2 C.Diff diarrhea history and poor oral intake -KCl 80 mEq total today -continue repletion 10/21/18 -3.6. KCl 20 mEq (10) Palliative care encounter Current Visit: Yes Status: Acute Assessment and Plan: -family transitioned from DNR-arrest to DNR/DNI. -PT/OT recommend SNF 10/19/18 -SNF Likely to be [facility] in [place] 10/20/18 -Likely discharge next week. Family reluctant to choose facility. 10/21/18 -Patient will go to [facility] (11) Right upper quadrant abdominal tenderness Current Visit: Yes Status: Acute Assessment and Plan: -Found on screening exam -The patient does not have a gallbladder. transaminitis on admission likely 2/2 sepsis. -morning repeat transaminases DVT Prophylaxis: subq hep - Time Spent with Patient Total time spent is greater than 50% in coordination of care (as documented) at patient's floor/unit and/or counseling patient: Internal Medicine: Result - Labs CBC & Chem 7: 10/21/18 01:40 10/21/18 01:40 Labs: Short CBC 10/21/18 Range/Units 01:40 WBC 13.1 H (4.3-11.1) K/mcL Hgb 10.4 L (12.9-16.9) g/dL Hct 33.7 L (37.5-50.1) % Plt Count 163 (140-400) K/mcL Neutrophils # 11.6 H (1.6-8.9) K/mcL BMP 10/21/18 01:40 Sodium 136 Potassium 3.6 Chloride 98 Carbon Dioxide 25 BUN 91 H Creatinine 2.43 H Glucose 145 H Calcium 8.4 L - ABG Interpretation ABG results: PT/INR, D-dimer PT 15.3 Seconds (9.4-12.1) H 10/12/18 22:54 <Suresh Shaw - Last Filed: 10/21/18 16:47> (3) CHF (congestive heart failure) Qualifiers: Heart failure type: systolic Heart failure chronicity: chronic Qualified Code(s): I50.22 - Chronic systolic (congestive) heart failure (5) Acute on chronic kidney failure Qualifiers: Acute renal failure type: with acute tubular necrosis Chronic kidney disease stage: stage 3 (moderate) Qualified Code(s): N17.0 - Acute kidney failure with tubular necrosis; N18.3 - Chronic kidney disease, stage 3 (moderate) <Malcolm Welch - Last Filed: 10/21/18 19:11> (4) Acute on chronic kidney failure Qualifiers: Acute renal failure type: with acute tubular necrosis Chronic kidney disease stage: stage 3 (moderate) Qualified Code(s): N17.0 - Acute kidney failure with tubular necrosis; N18.3 - Chronic kidney disease, stage 3 (moderate) (5) CHF (congestive heart failure) Qualifiers: Heart failure type: systolic Heart failure chronicity: chronic Qualified Code(s): I50.22 - Chronic systolic (congestive) heart failure (7) Atrial fibrillation Qualifiers: Atrial fibrillation type: paroxysmal Qualified Code(s): I48.0 - Paroxysmal atrial fibrillation
[2018-10-21] MEDS: Metoprolol XL (24 HR) Succ 50 MG TAB.ER.24H PO SCH (08:57)
[2018-10-21] MEDS: Aspirin Enteric Coated 325 MG Tablet PO SCH (08:57)
[2018-10-21] MEDS: Furosemide 20 MG/2 ML VIAL IVP SCH ×2 (08:58→17:19)
[2018-10-21] MEDS: Finasteride 5 MG TABLET PO SCH (08:58)
[2018-10-21] MEDS: Vancomycin Oral Soln 125 MG/2.5 ML UDC PO SCH ×4 (11:18→20:19)
--- NOTE | 2018-10-21 13:43 | Cardiology Progress Note ---
Date of Encounter: 10/21/18 Time of Encounter: 14:40 Assessment and Plan (1) C. difficile colitis Current Visit: Yes Status: Acute Managment per primary team. (2) NSVT (nonsustained ventricular tachycardia) Current Visit: Yes Status: Acute Small frequent runs NSVT seen overnight on 10/19/18. Likely increased due to hypokalemia in setting of c-diff. Pt with ICD in place. H/o NSVT seen on prior device checks. Amiodarone gtt started by primary team. Recommend amiodarone gtt for 24 hours while replacing potassium. Amio now off. Keep potassium 4.0 or greater and magnesium at 2.0 and above. Will give potassium replacement today. NSVT decreased. Seen to have frequent PVC occasional 3-4 beat run. Continue metoprolol. No further testing at this time. Call with questions or changes. Out-pt f/u will be coordinated. (3) Ischemic cardiomyopathy Current Visit: Yes Status: Acute H/o ICMP. EF 30%. ICD in place. Continue bb. No MINH I due to VANESSA. (4) CHF (congestive heart failure) Current Visit: No Status: Acute Acute on chronic HFrEF. BLE edema noted. Net positive 10L + for stay. Agree with IV lasix started 10/20/18. Diuresis until euvolemic. Restart oral lasix at discharge once euvolemic. Strict I&O and daily weights. Low sodium diet. Caution with IV fluid. Qualifiers: Heart failure type: systolic Heart failure chronicity: chronic Qualified Code(s): I50.22 - Chronic systolic (congestive) heart failure (5) Atrial fibrillation Current Visit: Yes Status: Acute H/o PAF who declines AC. Now NSR with PVC, NSVT. Qualifiers: Atrial fibrillation type: paroxysmal Qualified Code(s): I48.0 - Paroxysmal atrial fibrillation Discussion w patient/family: The assessment and plan as outlined above was discussed with the patient and/or family members who expressed understanding and agreement. All questions were answered. Thank you for involving us in the care of your patient. Please call with any questions. Subjective Principal diagnosis: VANESSA Interval history: Mr. Landa is sitting in his chair talking to family. Family says that he has been weak since July due to illness. He is not eating well. He denies chest pain or SOB. Objective Vital Signs Temp Pulse Resp BP Pulse Ox 07/19/19 07:11 97.7 F 73 18 112/60 95 10/21/18 03:28 97.8 F 72 18 112/68 91 10/20/18 23:23 98.4 F 81 18 110/66 95 10/20/18 19:56 97.0 F L 63 18 102/65 91 10/20/18 17:17 98.1 F 75 18 118/66 97 10/20/18 17:10 73 18 10/20/18 15:20 76 18 98 Intake and Output 10/20/18 10/21/18 10/21/18 23:59 07:59 15:59 Intake Total 0 / 540 600 / 600 Output Total 425 / 425 375 / 375 Balance -425 / 115 -375 / 225 600 / 225 Intake: Oral 0 / 240 600 / 600 Output: Urine 175 / 175 Catheter 425 / 425 200 / 200 Other: Meal Dinner Lunch Percent of Meal Consumed 50% Weight 95.5 kg Blood Glucose* 145 142 Patient Weight 10/21/18 23:59 Weight 95.5 kg General: Conversant, No Apparent Distress, Other ([place]) HEENT: Atraumatic, Normocephaly, Mucus Membranes Moist Neck: No JVD, Normal carotid pulses Cardiac: Reg Rate and Rhythm, Normal S1 and S2, No Murmur Lungs: Normal Breath Sounds, No Wheeze, Rales, Rhonchi Neuro: Alert and responsive, No focal deficits noted Abdomen: Soft, Non-Tender Skin: No rashes noted on visualized skin Musculoskeletal: No Chest Wall Tenderness Extremities: No Clubbing, No Cyanosis, Normal Pulses, Other (2+ BLE edema, improving.) Results 10/21/18 01:40 10/21/18 01:40 Lab Results 10/21/18 10/21/18 01:40 01:40 WBC 13.1 H Hgb 10.4 L Hct 33.7 L Plt Count 163 Sodium 136 Potassium 3.6 Chloride 98 Carbon Dioxide 25 BUN 91 H Creatinine 2.43 H Glucose 145 H Calcium 8.4 L Magnesium 2.2 - Imaging and Cardiology Echo: report reviewed - EKG Interpretation EKG results cardiology: personally reviewed Consult Discharge Plan - Plan [facility]errals: [facility] [Primary Care Provider[facility] - ([facility] is [facility] care, [facility] no PCP appointment needed)
[2018-10-22] MEDS: *HR* Heparin 5,000 UNIT/ML VIAL SQ SCH ×2 (06:17→17:00)
--- NOTE | 2018-10-22 07:38 | Internal Med Progress Note ---
<Suresh Shaw - Last Filed: 10/22/18 13:39> Hospitalist Progress Note - Encounter Date of Encounter: 10/22/18 - Exam Vitals: Temp Pulse Resp BP Pulse Ox 97.8 F 75 18 118/69 91 10/22/18 07:22 10/22/18 07:22 10/22/18 07:22 10/22/18 07:22 10/22/18 04:13 - Assessment and Plan (1) Hyponatremia Current Visit: Yes Status: Acute (2) C. difficile colitis Current Visit: Yes Status: Acute (3) CHF (congestive heart failure) Current Visit: No Status: Acute (4) Goals of care, counseling/discussion Current Visit: Yes Status: Acute (5) Acute on chronic kidney failure Current Visit: Yes Status: Suspected (6) Acute metabolic encephalopathy Current Visit: Yes Status: Acute - Time Spent with Patient Total time spent is greater than 50% in coordination of care (as documented) at patient's floor/unit and/or counseling patient: Internal Medicine: Result - Labs CBC & Chem 7: 10/22/18 07:33 10/22/18 07:33 Labs: Short CBC 10/22/18 Range/Units 07:33 WBC 10.8 (4.3-11.1) K/mcL Hgb 10.5 L (12.9-16.9) g/dL Hct 34.2 L (37.5-50.1) % Plt Count 197 (140-400) K/mcL Neutrophils # 9.5 H (1.6-8.9) K/mcL BMP 10/22/18 07:33 Sodium 139 Potassium 3.6 Chloride 95 L Carbon Dioxide 28 BUN 101 H Creatinine 2.50 H Glucose 169 H Calcium 9.2 Liver Function 10/22/18 Range/Units 07:33 AST 30 (13-39) Units/L ALT 235 H (7-52) Units/L Alkaline Phosphatase 118 H (34-104) Units/L - ABG Interpretation ABG results: PT/INR, D-dimer PT 15.3 Seconds (9.4-12.1) H 10/12/18 22:54 Consult Discharge Plan - Plan [facility]errals: [facility]Primary Care Provider] - (Patient is home base care, patient is going to [facility] no PCP appointment needed) - Attending Attestation I examined this patient and my medical decision-making was reviewed with the Resident Physician on 10/22/18. I agree with the documented findings, d isposition and treatment plan as described except to the extent set forth below. Mr Landa is currently admitted for acute C diff colitis and encephalopathy. He remains moderate to high risk due to potential for worsening clinical status. Mr Landa is alert today. He is not as oriented as yesterday. No fever or chills. Family wants haro out. No diarrhea. Exam: Alert Comfortable. Mucus membranes dry. NC. Neck supple. Heart distant and not tachy. No wheeze or rhonchi. Abd soft. Edema present. Moves all extremities. Stasis dermatitis on both legs. Plan: D/C haro and bladder scan. BUN markedly elevated. Hold lasix. Recheck labs tomorrow. <Malcolm Welch - Last Filed: 10/22/18 20:53> Hospitalist Progress Note - Encounter Date of Encounter: 10/22/18 Time of Encounter: 09:00 - Subjective Interval History: Patient is more confused today. He could not tell me exactly what was wrong. He had to use the bathroom. - Exam Vitals: Temp Pulse Resp BP Pulse Ox 97.8 F 75 18 118/69 91 10/22/18 07:22 10/22/18 07:22 10/22/18 07:22 10/22/18 07:22 10/22/18 04:13 Exam: Gen.: Elderly male. Mumbling Skin: Good turgor. Heparin shot subdermal ecchymoses of abdomen Eyes: Moist. Nonicteric ENT: Moist oral mucosa. No superior tongue lesions. Cardiac. Regular rate and rhythm. 2/6 systolic murmur heard over the tricuspid region best Respiratory: Crackles in the left middle auscultation field anteriorly. CTA otherwise anteriorly. GI: Nontender to palpation. Some distention. Extremities: 2+ pitting edema to the knee bilaterally. Venous stasis changes Neuro: Cranial nerves III, 4, 5, 6 intact. Sensation intact grossly upper and lower extremities. Alert and oriented to person and place only. Psychiatric: Responsive but somewhat confused and searches for words when trying to express himself. - Assessment and Plan (1) NSVT (nonsustained ventricular tachycardia) Current Visit: Yes Status: Acute Assessment and Plan: 10/20/18 -likely 2/2 structural changes in the heart vs. hypokalemia -history of systolic heart failure with EF 30%. AICD outpatient readings have shown this rhythm before. -tele has shown NSVT beginning the day of 10/19/18. repeat troponins continue to trend downwards. EKG read as having possible new ST-T wave depressions in precordial leads. Amiodarone last night did not resolve. -cardiology consulted. K and Mag repletion. d/c amio after 24 hours. cont. metoprolol. 10/21/18 -Decreased. Metoprolol. Cardiology signing off Plan: Metoprolol (2) C. difficile colitis Current Visit: Yes Status: Acute Assessment and Plan: -ongoing. was on outpt vanc 125 mg Po q6 per chart. thought to be the source of sepsis on pt admission -baseline diarrhea. -nursing reports no stools since the . Cumulative I/O daily: 300mL. Hyponatremia and hypokalemia. -Vanc 500 mg by mouth 4 times daily day 9. 10/20/18 -Metronidazole d/c'd 10/21/18 -No updates Plan: Continue to monitor bowel movements (3) Encephalopathy Current Visit: Yes Status: Acute Assessment and Plan: -likely 2/2 sepsis -patient's baseline is severely demented -SIRS: 2/4 with WBC 12.6 and respiratory rate 22 day of admission -lactic acid 2.7 on admission; blood cultures 10/12/18 x2 negative final -Vancomycin and as above. 10/19/18 -Mental cognition decline as above. Likely secondary to Seroquel. 10/20/18 -Mental status improved 10/21/18 -Mental status continues to improve Plan: Continue to monitor mental status. Discontinued Lasix as BUN was increasing (4) Acute on chronic kidney failure Current Visit: Yes Status: Suspected Assessment and Plan: -likely prerenal 2/2 dehydration. -decreased urine output per home nurse. Baseline renal function unknown. -initial BUN/Cr was 66/2.84. creatinine continues to improve. -metabolic acidosis corrected with bicarb drip. gap stable. -No dialysis needed per nephro 10/20/18 -Gap 13 10/21/18 -Gap 13 Plan: Continue to monitor (5) CHF (congestive heart failure) Current Visit: No Status: Acute Assessment and Plan: -systolic -Likely 2/2 CAD -Outpatient echo EF 33% -Troponin and EKG as below -Beta fadi, statin, aspirin. ACEi held due to kidney injury. 10/19/18 - IV twice a day furosemide as lower extremity edema had worsened. 10/20/18 -recent outpt echo per cardiology showed EF 33%. AICD checks showed NSVT as above. 10/21/18 -Diuresis until euvolemic. Restart oral Lasix at discharge once euvolemic per cards. Plan: Discontinued Lasix as BUN was increasing (6) NSTEMI (non-ST elevated myocardial infarction) Current Visit: Yes Status: Acute Assessment and Plan: -likely 2/2 hypovolemia and demand ischemia (Type 2) -Trop 0.19-0.22. EKG showed prolonged TN interval and read as suggestive of lateral ischemia 2/2 repolarization abnormality -no further treatment pursued 10/20/18 -repeat troponins as above (7) Atrial fibrillation Current Visit: Yes Status: Acute Assessment and Plan: 10/20/18 -chronic -declining anticoagulation per cards. -metoprolol. (8) Hypokalemia Current Visit: Yes Status: Acute Assessment and Plan: 10/20/18 -likely 2/2 C.Diff diarrhea history and poor oral intake -KCl 80 mEq total today 10/21/18 -3.6. KCl 20 mEq Plan: Continue repletion and monitoring (9) Palliative care encounter Current Visit: Yes Status: Acute Assessment and Plan: -family transitioned from DNR-arrest to DNR/DNI. -PT/OT recommend SNF 10/19/18 -SNF Likely to be [facility] in [place] 10/20/18 -Likely discharge next week. Family reluctant to choose facility. 10/21/18 -Patient will go to [facility] (10) Right upper quadrant abdominal tenderness Current Visit: Yes Status: Acute Assessment and Plan: -No tenderness as of 10/22/18//transaminases trending downward. DVT Prophylaxis: subq hep - Time Spent with Patient Total time spent is greater Internal Medicine: Result - Labs CBC & Chem 7: 10/22/18 07:33 10/22/18 07:33 - ABG Interpretation ABG results: PT/INR, D-dimer PT 15.3 Seconds (9.4-12.1) H 10/12/18 22:54 <Suresh Shaw - Last Filed: 10/22/18 13:39> (3) CHF (congestive heart failure) Qualifiers: Heart failure type: systolic Heart failure chronicity: chronic Qualified Cod e(s): I50.22 - Chronic systolic (congestive) heart failure (5) Acute on chronic kidney failure Qualifiers: Acute renal failure type: with acute tubular necrosis Chronic kidney disease stage: stage 3 (moderate) Qualified Code(s): N17.0 - Acute kidney failure with tubular necrosis; N18.3 - Chronic kidney disease, stage 3 (moderate) <Malcolm Welch - Last Filed: 10/22/18 20:53> (4) Acute on chronic kidney failure Qualifiers: Acute renal failure type: with acute tubular necrosis Chronic kidney disease stage: stage 3 (moderate) Qualified Code(s): N17.0 - Acute kidney failure with tubular necrosis; N18.3 - Chronic kidney disease, stage 3 (moderate) (5) CHF (congestive heart failure) Qualifiers: Heart failure type: systolic Heart failure chronicity: chronic Qualified Code(s): I50.22 - Chronic systolic (congestive) heart failure (7) Atrial fibrillation Qualifiers: Atrial fibrillation type: paroxysmal Qualified Code(s): I48.0 - Paroxysmal atrial fibrillation
[2018-10-22 07:54] LABS: Basophils % 0.1 %; Eosinophils % 0.1 %; Hematocrit 34.2 % (37.5-50.1); Hemoglobin 10.5 g/dL (12.9-16.9); Immature Granulocytes % 0.9 % (0-4); Lymphocytes # 0.4 K/mcL (0.6-4.6); Mean Corpuscular HGB Conc 30.7 g/dL (31.6-35.5); Mean Corpuscular Hemoglobin 30.3 pg (28.0-33.3); Mean Corpuscular Volume 98.6 fL (83.0-100.0); Mean Platelet Volume 11.4 fL (9.4-12.4); Monocytes # 0.7 K/mcL (0.0-1.3); Monocytes % 6.8 %; Neutrophils # 9.5 K/mcL (1.6-8.9); Platelet Count 197 K/mcL (140-400); Red Blood Count 3.47 M/mcL (4.19-5.50); Red Cell Distribution Width 19.9 % (11.5-14.5); Segmented Neutrophils % 88.1 %; White Blood Count 10.8 K/mcL (4.3-11.1)
[2018-10-22 08:09] LABS: Alanine Aminotransferase 235 Units/L (7-52); Alkaline Phosphatase 118 Units/L (34-104); Aspartate Amino Transferase 30 Units/L (13-39); Calcium 9.2 mg/dL (8.6-10.3); Potassium 3.6 mEq/L (3.5-5.1)
[2018-10-22] MEDS: Aspirin Enteric Coated 325 MG Tablet PO SCH (08:40)
[2018-10-22] MEDS: Metoprolol XL (24 HR) Succ 50 MG TAB.ER.24H PO SCH (08:40)
[2018-10-22] MEDS: Furosemide 20 MG/2 ML VIAL IVP SCH (08:40)
[2018-10-22] MEDS: Finasteride 5 MG TABLET PO SCH (08:40)
[2018-10-22] MEDS: Vancomycin Oral Soln 125 MG/2.5 ML UDC PO SCH ×4 (08:40→22:31)
[2018-10-22] MEDS: Acetaminophen 325 MG TABLET PO PRN (22:31)
[2018-10-23] MEDS: *HR* Heparin 5,000 UNIT/ML VIAL SQ SCH ×2 (06:04→17:14)
[2018-10-23 06:22] LABS: Hemoglobin 10.9 g/dL (12.9-16.9); Mean Corpuscular HGB Conc 31.1 g/dL (31.6-35.5); Mean Corpuscular Hemoglobin 30.8 pg (28.0-33.3); Mean Corpuscular Volume 98.9 fL (83.0-100.0); Mean Platelet Volume 12.1 fL (9.4-12.4); Platelet Count 208 K/mcL (140-400); Red Blood Count 3.54 M/mcL (4.19-5.50); Red Cell Distribution Width 20.3 % (11.5-14.5); White Blood Count 10.2 K/mcL (4.3-11.1)
[2018-10-23 06:41] LABS: Albumin 3.4 g/dL (3.5-5.7); Albumin/Globulin Ratio 1.5 (1.1-2.2); Bilirubin,Total 0.8 mg/dL (0.3-1.0); Calcium 9.2 mg/dL (8.6-10.3); Globulin 2.2 g/dL (2.4-3.5); Potassium 4.2 mEq/L (3.5-5.1); Total Protein 5.6 g/dL (6.4-8.9)
[2018-10-23] MEDS: Finasteride 5 MG TABLET PO SCH (07:29)
--- NOTE | 2018-10-23 07:29 | Internal Med Progress Note ---
<Suresh Shaw - Last Filed: 10/23/18 13:40> Hospitalist Progress Note - Encounter Date of Encounter: 10/23/18 - Exam Vitals: Temp Pulse Resp BP Pulse Ox 97.6 F 72 22 114/75 95 10/23/18 07:25 10/23/18 07:25 10/23/18 07:25 10/23/18 07:25 10/23/18 07:25 - Assessment and Plan (1) Hyponatremia Current Visit: Yes Status: Acute (2) C. difficile colitis Current Visit: Yes Status: Acute (3) CHF (congestive heart failure) Current Visit: No Status: Acute (4) Goals of care, counseling/discussion Current Visit: Yes Status: Acute (5) Acute on chronic kidney failure Current Visit: Yes Status: Suspected (6) Acute metabolic encephalopathy Current Visit: Yes Status: Acute - Time Spent with Patient Total time spent is greater than 50% in coordination of care (as documented) at patient's floor/unit and/or counseling patient: Internal Medicine: Result - Labs CBC & Chem 7: 10/23/18 05:39 10/23/18 05:39 Labs: Short CBC 10/23/18 Range/Units 05:39 WBC 10.2 (4.3-11.1) K/mcL Hgb 10.9 L (12.9-16.9) g/dL Hct 35.0 L (37.5-50.1) % Plt Count 208 (140-400) K/mcL BMP 10/23/18 05:39 Sodium 141 Potassium 4.2 Chloride 98 Carbon Dioxide 28 BUN 111 H Creatinine 2.58 H Glucose 156 H Calcium 9.2 Liver Function 10/23/18 Range/Units 05:39 Total Bilirubin 0.8 (0.3-1.0) mg/dL AST 33 (13-39) Units/L ALT 209 H (7-52) Units/L Alkaline Phosphatase 122 H (34-104) Units/L Albumin 3.4 L (3.5-5.7) g/dL - ABG Interpretation ABG results: PT/INR, D-dimer PT 15.3 Seconds (9.4-12.1) H 10/12/18 22:54 Consult Discharge Plan - Plan Referrals: [facility] [Primary Care Provider] - (Patient is home base care, patient is going to [facility] no PCP appointment needed) - Attending Attestation I examined this patient and my medical decision-making was reviewed with the Resident Physician on 10/23/18. I agree with the documented findings, disposition and treatment plan as described except to the extent set forth below. Mr Landa is currently admitted for acute C diff colitis. He remains moderate to high risk due to potential for worsening clinical status. Mr Landa is more confused today. He appears to be more somnolent. BUN much higher. No fever or chills. No CP. No abd pain. No diarrhea. Exam: ALert. Confused to placed and time. Mild resp distress in bed. Heart not tachy. Rhonchi present. Abd distended and soft. Edema present bilateral lower extremities -unchanged. Stasis dermatitis noted. Moves all extremities. Plan: Pt is intravascularly dry though volume overloaded. Diuretic held. Fluids started today. Feel his mental status is worsened by his increasing BUN which I feel is due to volume depletion. H/H stable and no sign of bleeding (though did have recent C diff). Reassess labs tomorrow - will need to address further work up tomorrow if needed. <Malcolm Welch - Last Filed: 10/23/18 18:48> Hospitalist Progress Note - Encounter Date of Encounter: 10/23/18 Time of Encounter: 09:30 - Subjective Interval History: Patient sitting in bed and states he feels fine. Will mumble and answer non-c oherently to questions. - Exam Vitals: Temp Pulse Resp BP Pulse Ox 97.6 F 72 22 114/75 95 10/23/18 07:25 10/23/18 07:25 10/23/18 07:25 10/23/18 07:25 10/23/18 07:25 Exam: Gen.: Elderly male. Mumbling and confused Skin: Tenting of skin over the metatarsals. No tenting seen in forehead skin Cardio: 2/6 systolic murmur best heard over the tricuspid post. Regular rate and rhythm Respiratory: Distant lung sounds lower anterior manzano. CTA anteriorly otherwise Abdomen: Somewhat distended. Possible fluid wave. Nontender. Extremities: Bilateral 2+ pitting edema to the knee. Capillary refill less than 2 seconds bilateral upper extremities Neuro: Chronic titubation. Could not follow commands for most of cranial nerve exam. Doubtful asterixis of upper or lower extremities-assessment complicated b y titubation. Psych: Somnolent. Responds to name. We will converse but answers are confused. - Assessment and Plan (1) Elevated BUN Current Visit: Yes Status: Acute Assessment and Plan: -likely due to intravascular volume depletion. In the setting of chronic kidney disease stage IV and diuretic use. 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 hypokalemia -history of systolic heart failure with EF 30%. AICD outpatient readings have shown this rhythm previously -tele has shown NSVT beginning the day of 10/19/18. -cardiology has signed off Plan: Continue Metoprolol (3) C. difficile colitis Current Visit: Yes Status: Acute Assessment and Plan: -ongoing. was on outpt vanc 125 mg Po q6 per chart. thought to be the source of sepsis on pt admission -baseline diarrhea. -Hyponatremia and hypokalemia during stay. Plan: Vanc 500 mg by mouth 4 times daily day 10 of pulsed taper. Continue to monitor bowel movements, I/O. (4) Encephalopathy Current Visit: Yes Status: Acute Assessment and Plan: -Metabolic encephalopathy likely due to sepsis and hyperuremia (as above) -patient's baseline is severely demented; ammonia WNL; glucose controlled -SIRS: 2/4 with WBC 12.6 and respiratory rate 22 day of admission -lactic acid 2.7 on admission; blood cultures 10/12/18 x2 negative final -Vancomycin and as above. Plan: LR's 2 bags for intravascular volume repletion (5) Acute on chronic kidney failure Current Visit: Yes Status: Suspected Assessment and Plan: -Stage IV -VANESSA likely prerenal due to dehydration. -decreased urine output per home nurse. -initial BUN/Cr was 66/2.84. -metabolic acidosis corrected with bicarb drip. gap stable. Plan: BUN elevation. Gap 15. replete fluids. (6) CHF (congestive heart failure) Current Visit: No Status: Acute Assessment and Plan: -systolic -Likely due to CAD -Outpatient echo EF 33% -Troponin and EKG as below -Beta fadi, statin, aspirin. ACEi held due to kidney injury. Plan: Lasix Discontinued as BUN elevated (7) NSTEMI (non-ST elevated myocardial infarction) Current Visit: Yes Status: Acute Assessment and Plan: -likely 2/2 hypovolemia and demand ischemia (Type 2) -10/12/18 and 10/13/18:Trop 0.19-0.22. EKG showed prolonged IL interval and read as suggestive of lateral ischemia 2/2 repolarization abnormality -no further treatment pursued per cardiology (8) Atrial fibrillation Current Visit: Yes Status: Acute Assessment and Plan: -chronic -declining anticoagulation per cards. -Continue metoprolol. (9) Hypokalemia Current Visit: Yes Status: Acute Assessment and Plan: -likely 2/2 C.Diff diarrhea history and poor oral intake -in the setting of CKD Plan: Continue repletion and monitoring (10) Palliative care encounter Current Visit: Yes Status: Acute Assessment and Plan: -family transitioned from DNR-arrest to DNR/DNI. -PT/OT recommend SNF -Patient will go to [facility] DVT Prophylaxis: subq hep - Time Spent with Patient Total time spent is greater than Internal Medicine: Result - Labs CBC & Chem 7: 10/23/18 05:39 10/23/18 05:39 Labs: Short CBC 10/22/18 10/23/18 Range/Units 07:33 05:39 WBC 10.8 10.2 (4.3-11.1) K/mcL Hgb 10.5 L 10.9 L (12.9-16.9) g/dL Hct 34.2 L 35.0 L (37.5-50.1) % Plt Count 197 208 (140-400) K/mcL Neutrophils # 9.5 H (1.6-8.9) K/mcL BMP 10/22/18 10/23/18 07:33 05:39 Sodium 139 141 Potassium 3.6 4.2 Chloride 95 L 98 Carbon Dioxide 28 28 BUN 101 H 111 H Creatinine 2.50 H 2.58 H Glucose 169 H 156 H Calcium 9.2 9.2 Liver Function 10/22/18 10/23/18 Range/Units 07:33 05:39 Total Bilirubin 0.8 (0.3-1.0) mg/dL AST 30 33 (13-39) Units/L ALT 235 H 209 H (7-52) Units/L Alkaline Phosphatase 118 H 122 H (34-104) Units/L Albumin 3.4 L (3.5-5.7) g/dL - ABG Interpretation ABG results: PT/INR, D-dimer PT 15.3 Seconds (9.4-12.1) H 10/12/18 22:54 <Suresh Shaw - Last Filed: 10/23/18 13:40> (3) CHF (congestive heart failure) Qualifiers: Heart failure type: systolic Heart failure chronicity: chronic Qualified Code(s): I50.22 - Chronic systolic (congestive) heart failure (5) Acute on chronic kidney failure Qualifiers: Acute renal failure type: with acute tubular necrosis Chronic kidney disease stage: stage 3 (moderate) Qualified Code(s): N17.0 - Acute kidney failure with tubular necrosis; N18.3 - Chronic kidney disease, stage 3 (moderate) <Malcolm Welch - Last Filed: 10/23/18 18:48> (5) Acute on chronic kidney failure Qualifiers: Acute renal failure type: with acute tubular necrosis Chronic kidney disease stage: stage 3 (moderate) Qualified Code(s): N17.0 - Acute kidney failure with tubular necrosis; N18.3 - Chronic kidney disease, stage 3 (moderate) (6) CHF (congestive heart failure) Qualifiers: Heart failure type: systolic Heart failure chronicity: chronic Qualified Code(s): I50.22 - Chronic systolic (congestive) heart failure (8) Atrial fibrillation Qualifiers: Atrial fibrillation type: paroxysmal Qualified Code(s): I48.0 - Paroxysmal atrial fibrillation
[2018-10-23] MEDS: Vancomycin Oral Soln 125 MG/2.5 ML UDC PO SCH ×4 (07:30→20:53)
[2018-10-23] MEDS: Metoprolol XL (24 HR) Succ 50 MG TAB.ER.24H PO SCH (07:30)
[2018-10-23] MEDS: Aspirin Enteric Coated 325 MG Tablet PO SCH (07:30)
[2018-10-23] MEDS ORDERED: Ringers Solution, Lactated 1,000 ML ONE (08:57)
[2018-10-23] MEDS: Ringers Solution, Lactated 1,000 ML IVC SCH ×2 (09:08→22:49)
[2018-10-23] MEDS: Acetaminophen 325 MG TABLET PO PRN (15:28)
[2018-10-23] MEDS ORDERED: *HR* Promethazine 25 MG/ML VIAL IVP ONE (22:43)
[2018-10-23] MEDS ORDERED: Haloperidol Lactate 5 MG/ML VIAL IVP ONE (22:43)
[2018-10-23] MEDS ORDERED: 0.9 % Sodium Chloride 1,000 ML IVC SCH (23:00)
[2018-10-23] MEDS ORDERED: Haloperidol Lactate 5 MG/ML VIAL IM ONE (23:28)
[2018-10-24 02:25] LABS: Basophils % 0.2 %; Hematocrit 35.9 % (37.5-50.1); Immature Granulocytes % 0.5 % (0-4); Lymphocytes # 0.6 K/mcL (0.6-4.6); Lymphocytes % 5.3 %; Mean Corpuscular HGB Conc 30.6 g/dL (31.6-35.5); Mean Corpuscular Hemoglobin 30.2 pg (28.0-33.3); Mean Corpuscular Volume 98.6 fL (83.0-100.0); Monocytes # 1.1 K/mcL (0.0-1.3); Monocytes % 9.3 %; Neutrophils # 10.3 K/mcL (1.6-8.9); Nucleated Red Blood Cells 0.3 /100 WBC (0); Platelet Count 213 K/mcL (140-400); Red Blood Count 3.64 M/mcL (4.19-5.50); Red Cell Distribution Width 20.8 % (11.5-14.5); Segmented Neutrophils % 84.7 %; White Blood Count 12.2 K/mcL (4.3-11.1)
[2018-10-24 02:43] LABS: Albumin 3.2 g/dL (3.5-5.7); Albumin/Globulin Ratio 1.5 (1.1-2.2); Bilirubin,Total 1.1 mg/dL (0.3-1.0); Calcium 8.9 mg/dL (8.6-10.3); Globulin 2.2 g/dL (2.4-3.5); Potassium 4.8 mEq/L (3.5-5.1); Total Protein 5.4 g/dL (6.4-8.9)
[2018-10-24] MEDS ORDERED: *HR* Promethazine 25 MG/ML VIAL IVP ONE (04:45)
[2018-10-24] MEDS: *HR* Heparin 5,000 UNIT/ML VIAL SQ SCH (05:06)
--- NOTE | 2018-10-24 05:42 | Internal Med Progress Note ---
<Malcolm Welch - Last Filed: 10/24/18 13:49> Hospitalist Progress Note - Encounter Date of Encounter: 10/24/18 Time of Encounter: 06:30 - Subjective Interval History: Patient required a sitter overnight secondary to confusion and declining mental status. Patient seen at bedside and is lethargic. - Exam Vitals: Temp Pulse Resp BP Pulse Ox 97.2 F L 77 16 101/84 92 10/24/18 05:10 10/24/18 05:10 10/24/18 05:10 10/24/18 05:10 10/24/18 05:10 Exam: Gen.: Elderly male. Exam complicated by patient thrashing Skin: Good turgor. Hyperemic appearance of the face EENT: Would not open eyes for significant amounts of time. Dry oral mucosa Cardio: Distant. Regular rate and rhythm. All that was heard and was6 systolic murmur over tricuspid post. Respiratory: CTA and anterior upper manzano. Distant lung sounds anterior bases GI: Distended. Possible fluid wave. Patient regarding to touch. MSK: Did not see clubbing of the upper extremities Extremities: Capillary refill less than 2 seconds upper extremity on the right. Left exam was complicated by thrashing. 2+ pitting edema bilaterally to the knee Neuro: Obtunded. Constant thrashing Psych: Patient would not respond to voice. Would respond to touch with movement. Did not answer questions. - Assessment and Plan (1) Palliative care encounter Current Visit: Yes Status: Acute Assessment and Plan: -Patient's status has declined -family transitioned patient to comfort care. Palliative managing comfort care medications. (2) Elevated BUN Current Visit: Yes Status: Acute Assessment and Plan: -likely due to intravascular volume depletion. In the setting of chronic kidney disease stage IV and diuretic use. -mental status has diminished -BUN 111 Plan: Comfort care only at this point (3) NSVT (nonsustained ventricular tachycardia) Current Visit: Yes Status: Chronic Assessment and Plan: -likely due to structural changes in the heart vs. hypokalemia -history of systolic heart failure with EF 30%. AICD outpatient readings have shown this rhythm previously -tele has shown NSVT beginning the day of 10/19/18. -cardiology has signed off Plan: Patient was on metoprolol. Comfort Care only (4) C. difficile colitis Current Visit: Yes Status: Acute Assessment and Plan: -ongoing. was on outpt vanc 125 mg Po q6 per chart. thought to be the source of sepsis on pt admission -baseline diarrhea. -Hyponatremia and hypokalemia during stay. Plan: Was on Vanc 500 mg by mouth 4 times daily day 10 of pulsed taper. Continue to monitor bowel movements, I/O. Comfort care (5) Encephalopathy Current Visit: Yes Status: Acute Assessment and Plan: -Metabolic encephalopathy likely due to sepsis and hyperuremia (as above) -patient's baseline is severely demented; ammonia WNL; glucose controlled -SIRS: 2/4 with WBC 12.6 and respiratory rate 22 day of admission -lactic acid 2.7 on admission; blood cultures 10/12/18 x2 negative final -Vancomycin and as above. Plan: Comfort care (6) Acute on chronic kidney failure Current Visit: Yes Status: Suspected Assessment and Plan: -Stage IV -VANESSA likely prerenal due to dehydration. -decreased urine output per home nurse. -initial BUN/Cr was 66/2.84. -metabolic acidosis corrected with bicarb drip. gap stable. Plan: BUN elevation with repeat VANESSA. Kidney function rapidly declining. Comfort Care (7) CHF (congestive heart failure) Current Visit: No Status: Acute Assessment and Plan: -systolic -Likely due to CAD -Outpatient echo EF 33% -Troponin and EKG as below -Beta fadi, statin, aspirin. ACEi held due to kidney injury. Plan: Comfort Care (8) NSTEMI (non-ST elevated myocardial infarction) Current Visit: Yes Status: Acute Assessment and Plan: -likely 2/2 hypovolemia and demand ischemia (Type 2) -10/12/18 and 10/13/18:Trop 0.19-0.22. EKG showed prolonged ID interval and read as suggestive of lateral ischemia 2/2 repolarization abnormality -no further treatment pursued per cardiology (9) Atrial fibrillation Current Visit: Yes Status: Acute Assessment and Plan: -chronic -declining anticoagulation per cards. -Was on metoprolol. Comfort Care (10) Hypokalemia Current Visit: Yes Status: Acute Assessment and Plan: -likely 2/2 C.Diff diarrhea history and poor oral intake -in the setting of CKD Plan: Comfort Care DVT Prophylaxis: Comfort Care - Time Spent with Patient Total time spent is greater t Internal Medicine: Result - Labs CBC & Chem 7: 10/24/18 02:16 10/24/18 02:16 Labs: Short CBC 10/23/18 10/24/18 Range/Units 05:39 02:16 WBC 10.2 12.2 H (4.3-11.1) K/mcL Hgb 10.9 L 11.0 L (12.9-16.9) g/dL Hct 35.0 L 35.9 L (37.5-50.1) % Plt Count 208 213 (140-400) K/mcL Neutrophils # 10.3 H (1.6-8.9) K/mcL BMP 10/23/18 10/24/18 05:39 02:16 Sodium 141 140 Potassium 4.2 4.8 Chloride 98 99 Carbon Dioxide 28 21 L BUN 111 H 123 H Creatinine 2.58 H 2.86 H Glucose 156 H 147 H Calcium 9.2 8.9 Liver Function 10/23/18 10/24/18 Range/Units 05:39 02:16 Total Bilirubin 0.8 1.1 H (0.3-1.0) mg/dL AST 33 114 H (13-39) Units/L ALT 209 H 232 H (7-52) Units/L Alkaline Phosphatase 122 H 199 H (34-104) Units/L Albumin 3.4 L 3.2 L (3.5-5.7) g/dL - ABG Interpretation ABG results: PT/INR, D-dimer PT 15.3 Seconds (9.4-12.1) H 10/12/18 22:54 Consult Discharge Plan - Plan [facility]errals: [facility] [Primary Care Provider[facility] - (Patient is home 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 difficile colitis Current Visit: Yes Status: Acute (3) CHF (congestive heart failure) Current Visit: No Status: Acute (4) Goals of care, counseling/discussion Current Visit: Yes Status: Acute (5) Acute on chronic kidney failure Current Visit: Yes Status: Suspected (6) Acute metabolic encephalopathy Current Visit: Yes Status: Acute (7) Atrial fibrillation Current Visit: Yes Status: Chronic (8) Restlessness and agitation Current Visit: Yes Status: Acute (9) NSVT (nonsustained ventricular tachycardia) Current Visit: Yes Status: Chronic (10) Sepsis Current Visit: Yes Status: Resolved - Time Spent with Patient Total time spent is greater than 50% in coordination of care (as documented) at patient's floor/unit and/or counseling patient: Internal Medicine: Result - Labs CBC & Chem 7: 10/24/18 02:16 10/24/18 02:16 Labs: Short CBC 10/24/18 Range/Units 02:16 WBC 12.2 H (4.3-11.1) K/mcL Hgb 11.0 L (12.9-16.9) g/dL Hct 35.9 L (37.5-50.1) % Plt Count 213 (140-400) K/mcL Neutrophils # 10.3 H (1.6-8.9) K/mcL BMP 10/24/18 02:16 Sodium 140 Potassium 4.8 Chloride 99 Carbon Dioxide 21 L BUN 123 H Creatinine 2.86 H Glucose 147 H Calcium 8.9 Liver Function 10/24/18 Range/Units 02:16 Total Bilirubin 1.1 H (0.3-1.0) mg/dL AST 114 H (13-39) Units/L ALT 232 H (7-52) Units/L Alkaline Phosphatase 199 H (34-104) Units/L Albumin 3.2 L (3.5-5.7) g/dL - ABG Interpretation ABG results: PT/INR, D-dimer PT 15.3 Seconds (9.4-12.1) H 10/12/18 22:54 - Attending Attestation I examined this patient and my medical decision-making was reviewed with the Resident Physician on 10/24/18. I agree with the documented findings, disposition and treatment plan as described except to the extent set forth below. Mr Landa is currently admitted for acute c diff colitis and encephalopathy. He remains moderate to high risk at this time. Mr Landa is more agitated and less responsive today. Seen by palliative and transitioning over to 2 A. Exam: Unresponsive. Secretions in airway. Dyspneic at rest. Abd soft. Edema present. Mottling present. Appears to be actively dying. Plan: Comfort care. <Malcolm Welch - Last Filed: 10/24/18 13:49> (6) Acute on chronic kidney failure Qualifiers: Acute renal failure type: with acute tubular necrosis Chronic kidney disease stage: stage 3 (moderate) Qualified Code(s): N17.0 - Acute kidney failure with tubular necrosis; N18.3 - Chronic kidney disease, stage 3 (moderate) (7) CHF (congestive heart failure) Qualifiers: Heart failure type: systolic Heart failure chronicity: chronic Qualified Code(s): I50.22 - Chronic systolic (congestive) heart failure (9) Atrial fibrillation Qualifiers: Atrial fibrillation type: paroxysmal Qualified Code(s): I48.0 - Paroxysmal atrial fibrillation <Suresh Shaw - Last Filed: 10/24/18 14:33> (3) CHF (congestive heart failure) Qualifiers: Heart failure type: systolic Heart failure chronicity: chronic Qualified Code(s): I50.22 - Chronic systolic (congestive) heart failure (5) Acute on chronic kidney failure Qualifiers: Acute renal failure type: with acute tubular necrosis Chronic kidney disease stage: stage 3 (moderate) Qualified Code(s): N17.0 - Acute kidney failure with tubular necrosis; N18.3 - Chronic kidney disease, stage 3 (moderate) (7) Atrial fibrillation Qualifiers: Atrial fibrillation type: paroxysmal Qualified Code(s): I48.0 - Paroxysmal atrial fibrillation (10) Sepsis Qualifiers: Sepsis type: sepsis due to unspecified organism Qualified Code(s): A41.9 - Sepsis, unspecified organism
[2018-10-24] MEDS ORDERED: 0.9 % Sodium Chloride 1,000 ML IVC SCH ×2 (06:18→06:30)
[2018-10-24] MEDS ORDERED: *HR* LORazepam 2 MG/ML VIAL IVP PRN ×2 (08:08→11:35)
[2018-10-24] MEDS: Aspirin Enteric Coated 325 MG Tablet PO SCH (11:16)
[2018-10-24] MEDS: Metoprolol XL (24 HR) Succ 50 MG TAB.ER.24H PO SCH (11:16)
[2018-10-24] MEDS: Finasteride 5 MG TABLET PO SCH (11:16)
[2018-10-24] MEDS: Vancomycin Oral Soln 125 MG/2.5 ML UDC PO SCH ×2 (11:16→13:56)
[2018-10-24] MEDS ORDERED: Scopolamine Patch 1.5 MG PATCH.TD72 TD SCH (11:45)
--- NOTE | 2018-10-24 12:03 | Palliative Progress Note ---
Date of Encounter: 10/24/18 Time of Encounter: 10:45 - Assessment and plan (1) Dyspnea Current Visit: Yes Status: Acute Assessment and plan: Patient having moderate resp distress, + upper airway secretions, and irreg respirations. D/W family, continue supportive oxygen, gentle suctioning if needed,, Add low dose Fentanyl IV PRN as needed for dyspnea/air hunger. Will monitor and titrate. May ultimately require continuous IV infusion (2) Congestion of upper airway Current Visit: Yes Status: Acute Assessment and plan: REquiring frequent suctioning. Will stop IV fluids, add Glycopyrrolate IV PRN and Scopolamine patch. (3) Restlessness and agitation Current Visit: Yes Status: Acute Assessment and plan: Has Lorazepam available, nursing did state that this has been helpful for his anxiety and restlessness. Will continue but increase frequency. MOnitor. (4) Generalized weakness Current Visit: Yes Status: Acute (5) Altered mental status Current Visit: Yes Status: Acute Qualifiers: Altered mental status type: unspecified Qualified Code(s): R41.82 - Altered mental status, unspecified (6) Goals of care, counseling/discussion Current Visit: Yes Status: Acute Assessment and plan: D/W family regarding clinical status, decreasing LOC, and increased respiratory distress. Some mottling noted. They are all in agreement at this point to keep him comfortable, and only provide medications for his comfort. Code status changed to DNR-Comfort Care. Will d/c IV fluids, add comfort medications. Will move to Palliative care bed and focus on symptom management at this time. They are aware that he may pass away within a short period of time. D/W Dr. Shaw, and pt primary nurse Diana. (7) Palliative care encounter Current Visit: Yes Status: Acute (8) Clostridium difficile infection Current Visit: Yes Status: Acute (9) VANESSA (acute kidney injury) Current Visit: Yes Status: Chronic (10) CHF (congestive heart failure) Current Visit: No Status: Acute Qualifiers: Heart failure type: systolic Heart failure chronicity: chronic Qualified Code(s): I50.22 - Chronic systolic (congestive) heart failure - Time Spent With Patient Total time spent is greater than 50% in coordination of care (as documented) at patient's floor/unit and/or counseling patient: - Subjective Interval history: Patient has had change of condition, altered mental status over weekend, and new restlessness, and decreased responsiveness. Increasing leukocytosis and elevated lactic acid level yesterday. Now with increasing respiratory distress, upper airway secretions, and occasional periods of apnea. Family, including 2 sons and daughter are at bedside. - Constitutional Vitals: Abnormal lab results WBC 12.2 K/mcL (4.3-11.1) H 10/24/18 02:16 RBC 3.64 M/mcL (4.19-5.50) L 10/24/18 02:16 Hgb 11.0 g/dL (12.9-16.9) L 10/24/18 02:16 Hct 35.9 % (37.5-50.1) L 10/24/18 02:16 MCHC 30.6 g/dL (31.6-35.5) L 10/24/18 02:16 RDW 20.8 % (11.5-14.5) H 10/24/18 02:16 Plt Count 127 K/mcL (140-400) L 10/19/18 04:20 Immature Gran % 4.7 % (0-4) H 10/13/18 16:05 Neutrophils # 10.3 K/mcL (1.6-8.9) H 10/24/18 02:16 Lymphocytes # 0.4 K/mcL (0.6-4.6) L 10/22/18 07:33 Nucleated RBCs/100 WBC 0.3 /100 WBC (0) H 10/24/18 02:16 Reactive Lymphocytes Present (Not Present) A 10/20/18 01:51 Platelet Estimate Slight Decrease (Normal) L 10/19/18 04:20 Hypochromasia Present (Not Present) A 10/20/18 01:51 Anisocytosis 1+ (Not Present) A 10/20/18 01:51 Mike Cells 1+ (Not Present) A 10/13/18 04:18 PT 15.3 Seconds (9.4-12.1) H 10/12/18 22:54 Sodium 135 mEq/L (136-145) L 10/20/18 01:51 Potassium 3.3 mEq/L (3.5-5.1) L 10/20/18 01:51 Chloride 95 mEq/L (98-107) L 10/22/18 07:33 Carbon Dioxide 21 mEq/L (23-29) L 10/24/18 02:16 BUN 123 mg/dL (8-23) H 10/24/18 02:16 Creatinine 2.86 mg/dL (0.70-1.30) H 10/24/18 02:16 Est GFR ( Amer) 25 (> 60) L 10/24/18 02:16 Est GFR (Non-Af Amer) 21 (> 60) L 10/24/18 02:16 BUN/Creatinine Ratio 43 (6-26) H 10/24/18 02:16 Glucose 147 mg/dL (70-105) H 10/24/18 02:16 POC Glucose 142 mg/dL (70-99) H 10/21/18 05:25 Calculated Osmolality 332 (280-300) H 10/24/18 02:16 Lactic Acid 3.6 mmol/L (0.5-2.2) H 10/24/18 07:15 Uric Acid 8.5 mg/dL (2.3-7.6) H 10/13/18 16:05 Calcium 8.4 mg/dL (8.6-10.3) L 10/21/18 01:40 Phosphorus 6.5 mg/dL (2.7-4.5) H 10/13/18 04:18 Total Bilirubin 1.1 mg/dL (0.3-1.0) H 10/24/18 02:16 AST 114 Units/L (13-39) H 10/24/18 02:16 ALT 232 Units/L (7-52) H 10/24/18 02:16 Alkaline Phosphatase 199 Units/L (34-104) H 10/24/18 02:16 Troponin I 0.07 ng/mL (< 0.04) H* 10/19/18 20:26 Serum Total Protein 5.4 g/dL (6.4-8.9) L 10/24/18 02:16 Albumin 3.2 g/dL (3.5-5.7) L 10/24/18 02:16 Globulin 2.2 g/dL (2.4-3.5) L 10/24/18 02:16 Urine Clarity Cloudy (Clear) A 10/12/18 21:48 Urine Protein 100 mg/dL (Neg-Trace) H 10/12/18 21:48 Urine Blood Large (Negative) H 10/12/18 21:48 Ur Leukocyte Esterase Moderate (Negative) H 10/12/18 21:48 Urine Microscopic RBC 5-15 per hpf (0-3) H 10/12/18 21:48 Urine Microscopic WBC 15-30 per hpf (0-3) H 10/12/18 21:48 Ur Squamous Epith Cells Many per lpf (None-Few) H 10/12/18 21:48 Urine Yeast Few per hpf (None Seen) H 10/12/18 21:48 Ur Culture Indicated? YES (NO) A 10/12/18 21:48 - Respiratory Respiratory exam: Present: accessory muscle use, respiratory distress, rhonchi - Cardiovascular Cardiovascular exam: Present: irregular rhythm, tachycardia - GI/Abdominal GI/Abdominal exam: Present: diminished bowel sounds, distended - Extremities Exam Extremities exam: Present: normal capillary refill Additional comments: 2+ edema to bilateral lower extremities - Neurological Exam Additional comments: Restless with occasional jerking movements. Does not respond to verbal/tactile stimuli - Skin Skin exam: Present: dry, pallor Additional comments: Cool to touch Palliative Quality Palliative Quality: Screen for Code Status: Yes, Screen for Goals of Care: Yes, Screen for Pain: Yes, If Pain Regimen Started, Initiate Bowel Regimen: NA, Screen for Nausea/Vomitting: Yes Code Status: 10/12/18 21:15 Resuscitation Status: Active [RES] Routine Comment: Resuscitation Status: [id number] 10/12/18 21:40 Resuscitation Status: Active [RES] Routine Comment: short term intubation OK Resuscitation Status: DNR-Comfort Care-Arrest 10/13/18 14:59 CODE [Resuscitation Status: Active] [RES] Routine Comment: Resuscitation Status: [id number] 10/24/18 11:33 DNR [Resuscitation Status: Active] [RES] Routine Comment: Resuscitation Status: DNR-Comfort Care - Labs CBC & Chem 7: 10/24/18 02:16 10/24/18 02:16 Labs: Laboratory Results - last 24 hr 10/23/18 10/24/18 10/24/18 22:16 02:16 02:16 WBC 12.2 H RBC 3.64 L Hgb 11.0 L Hct 35.9 L MCV 98.6 MCH 30.2 MCHC 30.6 L RDW 20.8 H Plt Count 213 MPV 12.0 Immature Gran % 0.5 Seg Neutrophils % 84.7 Lymphocytes % 5.3 Monocytes % 9.3 Eosinophils % 0.0 Basophils % 0.2 Neutrophils # 10.3 H Lymphocytes # 0.6 Monocytes # 1.1 Eosinophils # 0.0 Basophils # 0.0 Nucleated RBCs/100 WBC 0.3 H Sodium 140 Potassium 4.8 Chloride 99 Carbon Dioxide 21 L BUN 123 H Creatinine 2.86 H Est GFR ( Amer) 25 L Est GFR (Non-Af Amer) 21 L BUN/Creatinine Ratio 43 H Glucose 147 H Calculated Osmolality 332 H Lactic Acid 4.7 H* Calcium 8.9 Magnesium Total Bilirubin 1.1 H AST 114 H ALT 232 H Alkaline Phosphatase 199 H Serum Total Protein 5.4 L Albumin 3.2 L Globulin 2.2 L Albumin/Globulin Ratio 1.5 Blood Type Antibody Screen 10/24/18 10/24/18 10/24/18 02:16 02:16 06:07 WBC RBC Hgb Hct MCV MCH MCHC RDW Plt Count MPV Immature Gran % Seg Neutrophils % Lymphocytes % Monocytes % Eosinophils % Basophils % Neutrophils # Lymphocytes # Monocytes # Eosinophils # Basophils # Nucleated RBCs/100 WBC Sodium Potassium Chloride Carbon Dioxide BUN Creatinine Est GFR ( Amer) Est GFR (Non-Af Amer) BUN/Creatinine Ratio Glucose Calculated Osmolality Lactic Acid 4.4 H* Calcium Magnesium 2.4 Total Bilirubin AST ALT Alkaline Phosphatase Serum Total Protein Albumin Globulin Albumin/Globulin Ratio Blood Type O POSITIVE Antibody Screen NEGATIVE 10/24/18 07:15 WBC RBC Hgb Hct MCV MCH MCHC RDW Plt Count MPV Immature Gran % Seg Neutrophils % Lymphocytes % Monocytes % Eosinophils % Basophils % Neutrophils # Lymphocytes # Monocytes # Eosinophils # Basophils # Nucleated RBCs/100 WBC Sodium Potassium Chloride Carbon Dioxide BUN Creatinine Est GFR ( Amer) Est GFR (Non-Af Amer) BUN/Creatinine Ratio Glucose Calculated Osmolality Lactic Acid 3.6 H Calcium Magnesium Total Bilirubin AST ALT Alkaline Phosphatase Serum Total Protein Albumin Globulin Albumin/Globulin Ratio Blood Type Antibody Screen - ABG Interpretation ABG results: PT/INR, D-dimer PT 15.3 Seconds (9.4-12.1) H 10/12/18 22:54 Consult Discharge Plan - Plan [facility]errals: [facility] [Primary Care Provider] - (Patient is home base care, patient is going to [facility] no PCP appointment needed)
[2018-10-24] MEDS: *HR* FentaNYL (PF) 100 MCG/2 ML VIAL IVP PRN ×3 (12:30→23:28)
[2018-10-24] MEDS: Glycopyrrolate 0.2 MG/ML VIAL IVP PRN ×2 (14:11→23:31)
[2018-10-24] MEDS: Atropine Sulfate 1% 40 DROP/2 ML BOTTLE SL PRN ×3 (17:00→21:28)
[2018-10-25] MEDS: Atropine Sulfate 1% 40 DROP/2 ML BOTTLE SL PRN ×5 (02:58→18:38)
[2018-10-25] MEDS: *HR* FentaNYL (PF) 100 MCG/2 ML VIAL IVP PRN ×4 (02:58→15:07)
--- NOTE | 2018-10-25 07:32 | Internal Med Progress Note ---
<Malcolm Welch - Last Filed: 10/25/18 10:32> Hospitalist Progress Note - Encounter Date of Encounter: 10/25/18 Time of Encounter: 08:00 - Subjective Interval History: Patient responds only with grimace today. AICD to be deactivated when telecommunications technician available. magnet placed in the interim. - Exam Vitals: Temp Pulse Resp BP Pulse Ox 97.5 F L 81 18 109/71 97 10/24/18 20:03 10/24/18 20:03 10/24/18 20:03 10/24/18 20:03 10/24/18 20:03 Exam: gen: elderly male. lying still. skin: mottling of at least the R ear. poor turgor. cardio: distant sounds and complicated by upper airway sounds. Regular rate and rhythm. resp: diffuse upper airway sounds. some what labored breathing. GI: distended. assumed heparin shot injection site subdermal echymosis. Ext: capillary refill < 2 sec upper ext. b/l. 3+ edema b/l lower ext. psych: obtunded. grimace and slight movement as a response. - Assessment and Plan (1) Palliative care encounter Current Visit: Yes Status: Acute Assessment and Plan: -Patient's status has declined -family transitioned patient to comfort care. Palliative managing comfort care medications. AICD to be deactivated when telecommunications technician available. magnet in place during the interim. (2) Elevated BUN Current Visit: Yes Status: Acute Assessment and Plan: -likely due to intravascular volume depletion. In the setting of chronic kidney disease stage IV and diuretic use. -mental status has diminished -BUN 111 Plan: Comfort care only at this point (3) NSVT (nonsustained ventricular tachycardia) Current Visit: Yes Status: Chronic Assessment and Plan: -likely due to structural changes in the heart vs. hypokalemia -history of systolic heart failure with EF 30%. AICD outpatient readings have shown this rhythm previously -tele has shown NSVT beginning the day of 10/19/18. -cardiology has signed off Plan: Patient was on metoprolol. Comfort Care only (4) C. difficile colitis Current Visit: Yes Status: Acute Assessment and Plan: -ongoing. was on outpt vanc 125 mg Po q6 per chart. thought to be the source of sepsis on pt admission -baseline diarrhea. -Hyponatremia and hypokalemia during stay. Plan: Was on Vanc 500 mg by mouth 4 times daily day 10 of pulsed taper. Continue to monitor bowel movements, I/O. Comfort care (5) Encephalopathy Current Visit: Yes Status: Acute Assessment and Plan: -Metabolic encephalopathy likely due to sepsis and hyperuremia (as above) -patient's baseline is severely demented; ammonia WNL; glucose controlled -SIRS: 2/4 with WBC 12.6 and respiratory rate 22 day of admission -lactic acid 2.7 on admission; blood cultures 10/12/18 x2 negative final -Vancomycin and as above. Plan: Comfort care (6) Acute on chronic kidney failure Current Visit: Yes Status: Suspected Assessment and Plan: -Stage IV -VANESSA likely prerenal due to dehydration. -decreased urine output per home nurse. -initial BUN/Cr was 66/2.84. -metabolic acidosis corrected with bicarb drip. gap stable. Plan: BUN elevation with repeat VANESSA. Kidney function rapidly declining. Comfort Care (7) CHF (congestive heart failure) Current Visit: No Status: Acute Assessment and Plan: -systolic -Likely due to CAD -Outpatient echo EF 33% -Troponin and EKG as below -Beta fadi, statin, aspirin. ACEi held due to kidney injury. Plan: Comfort Care (8) NSTEMI (non-ST elevated myocardial infarction) Current Visit: Yes Status: Acute Assessment and Plan: -likely 2/2 hypovolemia and demand ischemia (Type 2) -10/12/18 and 10/13/18:Trop 0.19-0.22. EKG showed prolonged [place] interval and read as suggestive of lateral ischemia 2/2 repolarization abnormality -no further treatment pursued per cardiology (9) Atrial fibrillation Current Visit: Yes Status: Chronic Assessment and Plan: -chronic -declining anticoagulation per cards. -Was on metoprolol. Comfort Care (10) Hypokalemia Current Visit: Yes Status: Acute Assessment and Plan: -likely 2/2 C.Diff diarrhea history and poor oral intake -in the setting of CKD Plan: Comfort Care DVT Prophylaxis: Comfort Care - Time Spent with Patient Total time spent is greater t Internal Medicine: Result - Labs CBC & Chem 7: 10/24/18 02:16 10/24/18 02:16 - ABG Interpretation ABG results: PT/INR, D-dimer PT 15.3 Seconds (9.4-12.1) H 10/12/18 22:54 Consult Discharge Plan - Plan Referrals: [facility] [Primary Care Provider] - (Patient is home base care, patient is going to [facility] no PCP appointment needed) <Suresh Shaw - Last Filed: 10/25/18 12:53> Hospitalist Progress Note - Encounter Date of Encounter: 10/25/18 - Exam Vitals: Temp Pulse Resp BP Pulse Ox 99.1 F 81 23 108/72 95 10/25/18 07:30 10/25/18 07:30 10/25/18 07:30 10/25/18 07:30 10/25/18 07:30 - Assessment and Plan (1) Hyponatremia Current Visit: Yes Status: Acute (2) C. difficile colitis Current Visit: Yes Status: Acute (3) CHF (congestive heart failure) Current Visit: No Status: Acute (4) Goals of care, counseling/discussion Current Visit: Yes Status: Acute (5) Acute on chronic kidney failure Current Visit: Yes Status: Suspected (6) Acute metabolic encephalopathy Current Visit: Yes Status: Acute (7) Atrial fibrillation Current Visit: Yes Status: Chronic (8) Restlessness and agitation Current Visit: Yes Status: Acute (9) NSVT (nonsustained ventricular tachycardia) Current Visit: Yes Status: Chronic (10) Sepsis Current Visit: Yes Status: Resolved - Time Spent with Patient Total time spent is greater than 50% in coordination of care (as documented) at patient's floor/unit and/or counseling patient: Internal Medicine: Result - Labs CBC & Chem 7: 10/24/18 02:16 10/24/18 02:16 - ABG Interpretation ABG results: PT/INR, D-dimer PT 15.3 Seconds (9.4-12.1) H 10/12/18 22:54 - Attending Attestation I examined this patient and my medical decision-making was reviewed with the Resident Physician on 10/25/18. I agree with the documented findings, disposition and treatment plan as described except to the extent set forth below. Mr Landa is currently admitted for C diff with subsequent respiratory and renal failure. He is now comfort care. Mr Landa remains unresponsive. Magnet placed on AICD today. Subsequently to be deactivated. Exam: Comfortable. Edema present. Not tachy. Diminished lungs. Plan: Comfort care. Plan per palliative service. <Nanda Welchsilva Whyte - Last Filed: 10/25/18 10:32> (6) Acute on chronic kidney failure Qualifiers: Acute renal failure type: with acute tubular necrosis Chronic kidney disease stage: stage 3 (moderate) Qualified Code(s): N17.0 - Acute kidney failure with tubular necrosis; N18.3 - Chronic kidney disease, stage 3 (moderate) (7) CHF (congestive heart failure) Qualifiers: Heart failure type: systolic Heart failure chronicity: chronic Qualified Code(s): I50.22 - Chronic systolic (congestive) heart failure (9) Atrial fibrillation Qualifiers: Atrial fibrillation type: paroxysmal Qualified Code(s): I48.0 - Paroxysmal atrial fibrillation <Suresh Shaw - Last Filed: 10/25/18 12:53> (3) CHF (congestive heart failure) Qualifiers: Heart failure type: systolic Heart failure chronicity: chronic Qualified Code(s): I50.22 - Chronic systolic (congestive) heart failure (5) Acute on chronic kidney failure Qualifiers: Acute renal failure type: with acute tubular necrosis Chronic kidney disease stage: stage 3 (moderate) Qualified Code(s): N17.0 - Acute kidney failure with tubular necrosis; N18.3 - Chronic kidney disease, stage 3 (moderate) (7) Atrial fibrillation Qualifiers: Atrial fibrillation type: paroxysmal Qualified Code(s): I48.0 - Paroxysmal atrial fibrillation (10) Sepsis Qualifiers: Sepsis type: sepsis due to unspecified organism Qualified Code(s): A41.9 - Sepsis, unspecified organism
--- NOTE | 2018-10-25 09:17 | Event Note ---
Date of Encounter: 10/25/18 Time of Encounter: 09:14 - Cardiology Event Note Notified by Idalia Sewell Palliative care patient now DNRCC and actively passing away. Pt needs ICD tachy therapies turned off. Magnet currently in place. Patient has medtronic ICD. Device surface water technician notified of order.
--- NOTE | 2018-10-25 09:25 | Palliative Progress Note ---
Date of Encounter: 10/25/18 Time of Encounter: 09:20 - Assessment and plan (1) Dyspnea Current Visit: Yes Status: Acute Assessment and plan: Patient still with some tachypnea, but does not appear in distress. Continue IV Fentanyl 25 IV - utilized x 5 last 24 hours. Will titrate if needed. (2) Congestion of upper airway Current Visit: Yes Status: Acute Assessment and plan: Much better than yesterday. Continue Scopolamine patch/Glycopyrrolate/Atropine drops PRN. Gentle suctioning if needed (3) Restlessness and agitation Current Visit: Yes Status: Acute Assessment and plan: Continue IV Lorazepam PRN. Utilized x2 last 24 hours. (4) AICD (automatic cardioverter/defibrillator) present Current Visit: Yes Status: Acute Assessment and plan: SPoke with yolanda HASSAN regarding deactivating AICD so patient does not experience this discomfort as his heart has changes at end of lifel. Magnet in place to avoid discharge of AICD. Spoke with Corona Kulkarni, Cardiology OTR DRIVER - order entered to discontinue tachy therapies. Medical Coordinator Pesticide Use will be by today to discontinue. Notified Dr. Welch/primary nurse Bailey as well. (5) Generalized weakness Current Visit: Yes Status: Acute (6) Altered mental status Current Visit: Yes Status: Acute Qualifiers: Altered mental status type: unspecified Qualified Code(s): R41.82 - Altered mental status, unspecified (7) Goals of care, counseling/discussion Current Visit: Yes Status: Acute (8) Palliative care encounter Current Visit: Yes Status: Acute (9) Clostridium difficile infection Current Visit: Yes Status: Acute (10) VANESSA (acute kidney injury) Current Visit: Yes Status: Chronic (11) CHF (congestive heart failure) Current Visit: No Status: Acute Qualifiers: Heart failure type: systolic Heart failure chronicity: chronic Qualified Code(s): I50.22 - Chronic systolic (congestive) heart failure - Time Spent With Patient Total time spent is greater than 50% in coordination of care (as documented) at patient's floor/unit and/or counseling patient: - Subjective Interval history: Patient remains unresponsive, does have some restlessness with tactile stimulation. Respirations less labored than yesterday. Less upper airway secretions and has not required as much suctioning. Vitals remain fairly stable. - Constitutional Vitals: Abnormal lab results WBC 12.2 K/mcL (4.3-11.1) H 10/24/18 02:16 RBC 3.64 M/mcL (4.19-5.50) L 10/24/18 02:16 Hgb 11.0 g/dL (12.9-16.9) L 10/24/18 02:16 Hct 35.9 % (37.5-50.1) L 10/24/18 02:16 MCHC 30.6 g/dL (31.6-35.5) L 10/24/18 02:16 RDW 20.8 % (11.5-14.5) H 10/24/18 02:16 Plt Count 127 K/mcL (140-400) L 10/19/18 04:20 Immature Gran % 4.7 % (0-4) H 10/13/18 16:05 Neutrophils # 10.3 K/mcL (1.6-8.9) H 10/24/18 02:16 Lymphocytes # 0.4 K/mcL (0.6-4.6) L 10/22/18 07:33 Nucleated RBCs/100 WBC 0.3 /100 WBC (0) H 10/24/18 02:16 Reactive Lymphocytes Present (Not Present) A 10/20/18 01:51 Platelet Estimate Slight Decrease (Normal) L 10/19/18 04:20 Hypochromasia Present (Not Present) A 10/20/18 01:51 Anisocytosis 1+ (Not Present) A 10/20/18 01:51 Mike Cells 1+ (Not Present) A 10/13/18 04:18 PT 15.3 Seconds (9.4-12.1) H 10/12/18 22:54 Sodium 135 mEq/L (136-145) L 10/20/18 01:51 Potassium 3.3 mEq/L (3.5-5.1) L 10/20/18 01:51 Chloride 95 mEq/L (98-107) L 10/22/18 07:33 Carbon Dioxide 21 mEq/L (23-29) L 10/24/18 02:16 BUN 123 mg/dL (8-23) H 10/24/18 02:16 Creatinine 2.86 mg/dL (0.70-1.30) H 10/24/18 02:16 Est GFR ( Amer) 25 (> 60) L 10/24/18 02:16 Est GFR (Non-Af Amer) 21 (> 60) L 10/24/18 02:16 BUN/Creatinine Ratio 43 (6-26) H 10/24/18 02:16 Glucose 147 mg/dL (70-105) H 10/24/18 02:16 POC Glucose 142 mg/dL (70-99) H 10/21/18 05:25 Calculated Osmolality 332 (280-300) H 10/24/18 02:16 Lactic Acid 3.6 mmol/L (0.5-2.2) H 10/24/18 07:15 Uric Acid 8.5 mg/dL (2.3-7.6) H 10/13/18 16:05 Calcium 8.4 mg/dL (8.6-10.3) L 10/21/18 01:40 Phosphorus 6.5 mg/dL (2.7-4.5) H 10/13/18 04:18 Total Bilirubin 1.1 mg/dL (0.3-1.0) H 10/24/18 02:16 AST 114 Units/L (13-39) H 10/24/18 02:16 ALT 232 Units/L (7-52) H 10/24/18 02:16 Alkaline Phosphatase 199 Units/L (34-104) H 10/24/18 02:16 Troponin I 0.07 ng/mL (< 0.04) H* 10/19/18 20:26 Serum Total Protein 5.4 g/dL (6.4-8.9) L 10/24/18 02:16 Albumin 3.2 g/dL (3.5-5.7) L 10/24/18 02:16 Globulin 2.2 g/dL (2.4-3.5) L 10/24/18 02:16 Urine Clarity Cloudy (Clear) A 10/12/18 21:48 Urine Protein 100 mg/dL (Neg-Trace) H 10/12/18 21:48 Urine Blood Large (Negative) H 10/12/18 21:48 Ur Leukocyte Esterase Moderate (Negative) H 10/12/18 21:48 Urine Microscopic RBC 5-15 per hpf (0-3) H 10/12/18 21:48 Urine Microscopic WBC 15-30 per hpf (0-3) H 10/12/18 21:48 Ur Squamous Epith Cells Many per lpf (None-Few) H 10/12/18 21:48 Urine Yeast Few per hpf (None Seen) H 10/12/18 21:48 Ur Culture Indicated? YES (NO) A 10/12/18 21:48 General appearance: Present: no acute distress - Respiratory Additional comments: Respirations slightly irreg and tachypneic. - Cardiovascular Cardiovascular exam: Present: irregular rhythm, tachycardia - GI/Abdominal GI/Abdominal exam: Present: distended, hypoactive bowel sounds, soft - Extremities Exam Additional comments: 2+ edema bilateral lower extremities - Neurological Exam Additional comments: Patient does not open eyes or respond to verbal commands. Does appear to have increased restlessness with exAM - Skin Skin exam: Present: dry, pallor, warm Palliative Quality Palliative Quality: Screen for Code Status: Yes, Screen for Goals of Care: Yes, Screen for Pain: Yes, If Pain Regimen Started, Initiate Bowel Regimen: NA, Screen for Nausea/Vomitting: Yes Code Status: 10/12/18 21:15 Resuscitation Status: Active [RES] Routine Comment: Resuscitation Status: [id number] 10/12/18 21:40 Resuscitation Status: Active [RES] Routine Comment: short term intubation OK Resuscitation Status: DNR-Comfort Care-Arrest 10/13/18 14:59 CODE [Resuscitation Status: Active] [RES] Routine Comment: Resuscitation Status: [id number] 10/24/18 11:33 DNR [Resuscitation Status: Active] [RES] Routine Comment: Resuscitation Status: DNR-Comfort Care - Labs CBC & Chem 7: 10/24/18 02:16 10/24/18 02:16 - ABG Interpretation ABG results: PT/INR, D-dimer PT 15.3 Seconds (9.4-12.1) H 10/12/18 22:54 Consult Discharge Plan - Plan Referrals: [facility] [Primary Care Provider] - (Patient is home base care, patient is going to [facility] no PCP appointment needed)
[2018-10-25] MEDS ORDERED: *HR* LORazepam Oral Conc 2 MG/ML SL PRN (15:16)
--- NOTE | 2018-10-26 05:58 | Internal Med Progress Note ---
<Malcolm Welch - Last Filed: 10/26/18 09:46> Hospitalist Progress Note - Encounter Date of Encounter: 10/26/18 Time of Encounter: 09:30 - Subjective Interval History: Per nursing the patient was having increased respiratory effort and medications were changed as below. AICD was deactivated. - Exam Vitals: Temp Pulse Resp BP Pulse Ox 98.1 F 86 18 115/71 91 10/25/18 20:03 10/25/18 20:03 10/25/18 20:03 10/25/18 20:03 10/25/18 20:03 Exam: Gen.: Elderly male. Resting in hospital bed. Skin: Good turgor. Venous stasis changes lower extremities bilaterally Cardiac: Regular rate and rhythm. Exam complicated by upper airway sounds. Respiratory: Significant upper airway sounds. Anterior lung sounds diminished GI: Distended. Patient grimaces when palpated. Extremities: Capillary refill less than 2 seconds upper extremities bilaterally. Pitting edema up to the lower quadricep region on the right and to the knee on the left. MSK: Venous stasis changes of bilateral lower extremities. Hyperemic appearance of the feet. Neuro: Somnolent. Responds somewhat to touch and voice. Opened eyes at one point. - Assessment and Plan (1) Palliative care encounter Current Visit: Yes Status: Acute Assessment and Plan: -Patient's status has declined -family transitioned patient to comfort care. Palliative managing comfort care medications. AICD deactivated. Plan: Oxycodone 10 mg sublingual scheduled every 4 hours as well as every 2 hours when necessary. (2) Elevated BUN Current Visit: Yes Status: Acute Assessment and Plan: -likely due to intravascular volume depletion. In the setting of chronic kidney disease stage IV and diuretic use. -mental status has diminished -BUN 111 Plan: Comfort care only at this point (3) NSVT (nonsustained ventricular tachycardia) Current Visit: Yes Status: Chronic Assessment and Plan: -likely due to structural changes in the heart vs. hypokalemia -history of systolic heart failure with EF 30%. AICD outpatient readings have shown this rhythm previously -tele has shown NSVT beginning the day of 10/19/18. -cardiology has signed off Plan: Patient was on metoprolol. Comfort Care only (4) C. difficile colitis Current Visit: Yes Status: Acute Assessment and Plan: -ongoing. was on outpt vanc 125 mg Po q6 per chart. thought to be the source of sepsis on pt admission -baseline diarrhea. -Hyponatremia and hypokalemia during stay. Plan: Was on Vanc 500 mg by mouth 4 times daily day 10 of pulsed taper. Continue to monitor bowel movements, I/O. Comfort care (5) Encephalopathy Current Visit: Yes Status: Acute Assessment and Plan: -Metabolic encephalopathy likely due to sepsis and hyperuremia (as above) -patient's baseline is severely demented; ammonia WNL; glucose controlled -SIRS: 2/4 with WBC 12.6 and respiratory rate 22 day of admission -lactic acid 2.7 on admission; blood cultures 10/12/18 x2 negative final -Vancomycin and as above. Plan: Comfort care (6) Acute on chronic kidney failure Current Visit: Yes Status: Suspected Assessment and Plan: -Stage IV -VANESSA likely prerenal due to dehydration. -decreased urine output per home nurse. -initial BUN/Cr was 66/2.84. -metabolic acidosis corrected with bicarb drip. gap stable. Plan: BUN elevation with repeat VANESSA. Kidney function rapidly declining. Comfort Care (7) CHF (congestive heart failure) Current Visit: No Status: Acute Assessment and Plan: -systolic -Likely due to CAD -Outpatient echo EF 33% -Troponin and EKG as below -Beta fadi, statin, aspirin. ACEi held due to kidney injury. Plan: Comfort Care (8) NSTEMI (non-ST elevated myocardial infarction) Current Visit: Yes Status: Acute Assessment and Plan: -likely 2/2 hypovolemia and demand ischemia (Type 2) -10/12/18 and 10/13/18:Trop 0.19-0.22. EKG showed prolonged [place] interval and read as suggestive of lateral ischemia 2/2 repolarization abnormality -no further treatment pursued per cardiology (9) Atrial fibrillation Current Visit: Yes Status: Chronic Assessment and Plan: -chronic -declining anticoagulation per cards. -Was on metoprolol. Comfort Care (10) Hypokalemia Current Visit: Yes Status: Acute Assessment and Plan: -likely 2/2 C.Diff diarrhea history and poor oral intake -in the setting of CKD Plan: Comfort Care DVT Prophylaxis: Comfort care - Time Spent with Patient Total time spent is greater t Internal Medicine: Result - Labs CBC & Chem 7: 10/24/18 02:16 10/24/18 02:16 - ABG Interpretation ABG results: PT/INR, D-dimer PT 15.3 Seconds (9.4-12.1) H 10/12/18 22:54 Consult Discharge Plan - Plan Referrals: [facility],PCP [Primary Care Provider] - (Patient is home base care, [facility] is [facility] no PCP appointment needed) <Myrna Chappell - Last Filed: 10/26/18 13:35> Hospitalist Progress Note - Encounter Date of Encounter: 10/26/18 - Exam Vitals: Temp Pulse Resp BP Pulse Ox 97.7 F 142 24 89/42 91 10/26/18 07:14 10/26/18 07:14 10/26/18 07:14 10/26/18 07:14 10/26/18 07:20 - Assessment and Plan (1) Sepsis Current Visit: Yes Status: Resolved (2) Hyponatremia Current Visit: Yes Status: Acute (3) C. difficile colitis Current Visit: Yes Status: Acute (4) CHF (congestive heart failure) Current Visit: No Status: Acute (5) Goals of care, counseling/discussion Current Visit: Yes Status: Acute (6) Acute on chronic kidney failure Current Visit: Yes Status: Suspected (7) Acute metabolic encephalopathy Current Visit: Yes Status: Acute (8) NSVT (nonsustained ventricular tachycardia) Current Visit: Yes Status: Chronic (9) Atrial fibrillation Current Visit: Yes Status: Chronic (10) Restlessness and agitation Current Visit: Yes Status: Acute - Time Spent with Patient Total time spent is greater than 50% in coordination of care (as documented) at patient's floor/unit and/or counseling patient: Internal Medicine: Result - Labs CBC & Chem 7: 10/24/18 02:16 10/24/18 02:16 - ABG Interpretation ABG results: PT/INR, D-dimer PT 15.3 Seconds (9.4-12.1) H 10/12/18 22:54 - Attending Attestation I examined this patient and my medical decision-making was reviewed with the Resident Physician Dr Welch. I agree with the documented findings, disposition and treatment plan as described except to the extent set forth below. Mr Landa is admitted for C diff with subsequent respiratory and renal failure. He is now comfort care. asleep, no family present. no hpi or ros possible due to somnolence. comfortable appearing. gen- asleep, ,appears stated age cv- reg rate and rhythm, no le edema lungs- agonal breathing with course bs, on oxymask abd- soft, non distended Palliative Comfort Care- cont comfort measures, he remains inpt comfort care here, appreciate palliative input C Diff Colitis- monitor comofrt level and stool output Hypoxic resp failure- cont comfort measures,oxygen <Malcolm Welch G - Last Filed: 10/26/18 09:46> (6) Acute on chronic kidney failure Qualifiers: Acute renal failure type: with acute tubular necrosis Chronic kidney disease stage: stage 3 (moderate) Qualified Code(s): N17.0 - Acute kidney failure with tubular necrosis; N18.3 - Chronic kidney disease, stage 3 (moderate) (7) CHF (congestive heart failure) Qualifiers: Heart failure type: systolic Heart failure chronicity: chronic Qualified Code(s): I50.22 - Chronic systolic (congestive) heart failure (9) Atrial fibrillation Qualifiers: Atrial fibrillation type: paroxysmal Qualified Code(s): I48.0 - Paroxysmal atrial fibrillation <Myrna Chappell - Last Filed: 10/26/18 13:35> (1) Sepsis Qualifiers: Sepsis type: sepsis due to unspecified organism Qualified Code(s): A41.9 - Sepsis, unspecified organism (4) CHF (congestive heart failure) Qualifiers: Heart failure type: systolic Heart failure chronicity: chronic Qualified Code(s): I50.22 - Chronic systolic (congestive) heart failure (6) Acute on chronic kidney failure Qualifiers: Acute renal failure type: with acute tubular necrosis Chronic kidney disease stage: stage 3 (moderate) Qualified Code(s): N17.0 - Acute kidney failure with tubular necrosis; N18.3 - Chronic kidney disease, stage 3 (moderate) (9) Atrial fibrillation Qualifiers: Atrial fibrillation type: paroxysmal Qualified Code(s): I48.0 - Paroxysmal atrial fibrillation
[2018-10-26] MEDS: Atropine Sulfate 1% 40 DROP/2 ML BOTTLE SL PRN ×5 (07:36→23:08)
--- NOTE | 2018-10-26 08:09 | Palliative Progress Note ---
Date of Encounter: 10/26/18 Time of Encounter: 08:05 - Assessment and plan (1) Dyspnea Current Visit: Yes Status: Acute Assessment and plan: IV access was lost yesterday. Oxycodone started. Patient in resp distress this am - did not receive any SL Oxycodone since yesterday. He is actively dying and family desires him comfortable. Will schedule Oxycodone every 4 hours and keep every 2 hours PRN. (2) Congestion of upper airway Current Visit: Yes Status: Acute Assessment and plan: Continue Scopolamine patch and Atropine drops PRN. Gentle suctioning as needed. (3) Restlessness and agitation Current Visit: Yes Status: Acute Assessment and plan: Continue SL Lorazepam and monitor (4) AICD (automatic cardioverter/defibrillator) present Current Visit: Yes Status: Acute Assessment and plan: AICD deactivated yesterday per cardiology (5) Generalized weakness Current Visit: Yes Status: Acute (6) Altered mental status Current Visit: Yes Status: Acute Qualifiers: Altered mental status type: unspecified Qualified Code(s): R41.82 - Altered mental status, unspecified (7) Goals of care, counseling/discussion Current Visit: Yes Status: Acute (8) Palliative care encounter Current Visit: Yes Status: Acute (9) Clostridium difficile infection Current Visit: Yes Status: Acute (10) VANESSA (acute kidney injury) Current Visit: Yes Status: Chronic (11) CHF (congestive heart failure) Current Visit: No Status: Acute Qualifiers: Heart failure type: systolic Heart failure chronicity: chronic Qualified Code(s): I50.22 - Chronic systolic (congestive) heart failure - Time Spent With Patient Total time spent is greater than 50% in coordination of care (as documented) at patient's floor/unit and/or counseling patient: - Subjective Interval history: Patient restless and dyspneic, opening eyes and appears uncomfortable. Has not been medicated since yesterday afternoon. Tachycardic. B/P 89/40's this am. No family present yet this am. - Constitutional Vitals: Abnormal lab results WBC 12.2 K/mcL (4.3-11.1) H 10/24/18 02:16 RBC 3.64 M/mcL (4.19-5.50) L 10/24/18 02:16 Hgb 11.0 g/dL (12.9-16.9) L 10/24/18 02:16 Hct 35.9 % (37.5-50.1) L 10/24/18 02:16 MCHC 30.6 g/dL (31.6-35.5) L 10/24/18 02:16 RDW 20.8 % (11.5-14.5) H 10/24/18 02:16 Plt Count 127 K/mcL (140-400) L 10/19/18 04:20 Immature Gran % 4.7 % (0-4) H 10/13/18 16:05 Neutrophils # 10.3 K/mcL (1.6-8.9) H 10/24/18 02:16 Lymphocytes # 0.4 K/mcL (0.6-4.6) L 10/22/18 07:33 Nucleated RBCs/100 WBC 0.3 /100 WBC (0) H 10/24/18 02:16 Reactive Lymphocytes Present (Not Present) A 10/20/18 01:51 Platelet Estimate Slight Decrease (Normal) L 10/19/18 04:20 Hypochromasia Present (Not Present) A 10/20/18 01:51 Anisocytosis 1+ (Not Present) A 10/20/18 01:51 [place] Cells 1+ (Not Present) A 10/13/18 04:18 PT 15.3 Seconds (9.4-12.1) H 10/12/18 22:54 Sodium 135 mEq/L (136-145) L 10/20/18 01:51 Potassium 3.3 mEq/L (3.5-5.1) L 10/20/18 01:51 Chloride 95 mEq/L (98-107) L 10/22/18 07:33 Carbon Dioxide 21 mEq/L (23-29) L 10/24/18 02:16 BUN 123 mg/dL (8-23) H 10/24/18 02:16 Creatinine 2.86 mg/dL (0.70-1.30) H 10/24/18 02:16 Est GFR ( Amer) 25 (> 60) L 10/24/18 02:16 Est GFR (Non-Af Amer) 21 (> 60) L 10/24/18 02:16 BUN/Creatinine Ratio 43 (6-26) H 10/24/18 02:16 Glucose 147 mg/dL (70-105) H 10/24/18 02:16 POC Glucose 142 mg/dL (70-99) H 10/21/18 05:25 Calculated Osmolality 332 (280-300) H 10/24/18 02:16 Lactic Acid 3.6 mmol/L (0.5-2.2) H 10/24/18 07:15 Uric Acid 8.5 mg/dL (2.3-7.6) H 10/13/18 16:05 Calcium 8.4 mg/dL (8.6-10.3) L 10/21/18 01:40 Phosphorus 6.5 mg/dL (2.7-4.5) H 10/13/18 04:18 Total Bilirubin 1.1 mg/dL (0.3-1.0) H 10/24/18 02:16 AST 114 Units/L (13-39) H 10/24/18 02:16 ALT 232 Units/L (7-52) H 10/24/18 02:16 Alkaline Phosphatase 199 Units/L (34-104) H 10/24/18 02:16 Troponin I 0.07 ng/mL (< 0.04) H* 10/19/18 20:26 Serum Total Protein 5.4 g/dL (6.4-8.9) L 10/24/18 02:16 Albumin 3.2 g/dL (3.5-5.7) L 10/24/18 02:16 Globulin 2.2 g/dL (2.4-3.5) L 10/24/18 02:16 Urine Clarity Cloudy (Clear) A 10/12/18 21:48 Urine Protein 100 mg/dL (Neg-Trace) H 10/12/18 21:48 Urine Blood Large (Negative) H 10/12/18 21:48 Ur Leukocyte Esterase Moderate (Negative) H 10/12/18 21:48 Urine Microscopic RBC 5-15 per hpf (0-3) H 10/12/18 21:48 Urine Microscopic WBC 15-30 per hpf (0-3) H 10/12/18 21:48 Ur Squamous Epith Cells Many per lpf (None-Few) H 10/12/18 21:48 Urine Yeast Few per hpf (None Seen) H 10/12/18 21:48 Ur Culture Indicated? YES (NO) A 10/12/18 21:48 General appearance: Present: mild distress - Respiratory Additional comments: Rhonchi throughout anterior chest. Tachypneic. - Cardiovascular Cardiovascular exam: Present: +S1, +S2, tachycardia - GI/Abdominal GI/Abdominal exam: Present: diminished bowel sounds, distended, soft - Additional comments: Abd distended, bladder scan demonstrated over 700 ml and has not voided. [place] will be inserted - Extremities Exam Additional comments: 2+ bilateral lower extremity edema - Neurological Exam Additional comments: Patient does occasionally open eyes. No response to verbal stimuli. Becomes restless with tactile stimuli - Skin Skin exam: Present: dry, pallor, warm Palliative Quality Palliative Quality: Screen for Code Status: Yes, Screen for Goals of Care: Yes, Screen for Pain: Yes, If Pain Regimen Started, Initiate Bowel Regimen: NA, Screen for Nausea/Vomitting: Yes Code Status: 10/12/18 21:15 Resuscitation Status: Active [RES] Routine Comment: Resuscitation Status: [id number] 10/12/18 21:40 Resuscitation Status: Active [RES] Routine Comment: short term intubation OK Resuscitation Status: DNR-Comfort Care-Arrest 10/13/18 14:59 CODE [Resuscitation Status: Active] [RES] Routine Comment: Resuscitation Status: [id number]-[id number] 10/24/18 11:33 DNR [Resuscitation Status: Active] [RES] Routine Comment: Resuscitation Status: DNR-Comfort Care - Labs CBC & Chem 7: 10/24/18 02:16 10/24/18 02:16 - ABG Interpretation ABG results: PT/INR, D-dimer PT 15.3 Seconds (9.4-12.1) H 10/12/18 22:54 Consult Discharge Plan - Plan [facility]errals: [facility] [Primary Care Provider] - (Patient is home base care, patient is going to [facility] no PCP appointment needed)
[2018-10-26 19:53] VITALS: BP 108/59
--- NOTE | 2018-10-27 05:50 | Internal Med Progress Note ---
Hospitalist Progress Note - Encounter Date of Encounter: 10/27/18 - Exam Vitals: Temp Pulse Resp BP Pulse Ox 97.5 F L 108 10 108/59 87 10/26/18 19:47 10/26/18 19:47 10/26/18 19:47 10/26/18 19:47 10/26/18 19:47 - Assessment and Plan (1) Palliative care encounter Current Visit: Yes Status: Acute Assessment and Plan: -Patient's status has declined -family transitioned patient to comfort care. Palliative managing comfort care medications. AICD deactivated. Plan: Oxycodone 10 mg sublingual scheduled every 4 hours as well as every 2 hours when necessary. (2) Elevated BUN Current Visit: Yes Status: Acute Assessment and Plan: -likely due to intravascular volume depletion. In the setting of chronic kidney disease stage IV and diuretic use. -mental status has diminished -BUN 111 Plan: Comfort care only at this point (3) NSVT (nonsustained ventricular tachycardia) Current Visit: Yes Status: Chronic Assessment and Plan: -likely due to structural changes in the heart vs. hypokalemia -history of systolic heart failure with EF 30%. AICD outpatient readings have shown this rhythm previously -tele has shown NSVT beginning the day of 10/19/18. -cardiology has signed off Plan: Patient was on metoprolol. Comfort Care only (4) C. difficile colitis Current Visit: Yes Status: Acute Assessment and Plan: -ongoing. was on outpt vanc 125 mg Po q6 per chart. thought to be the source of sepsis on pt admission -baseline diarrhea. -Hyponatremia and hypokalemia during stay. Plan: Was on Vanc 500 mg by mouth 4 times daily day 10 of pulsed taper. Continue to monitor bowel movements, I/O. Comfort care (5) Encephalopathy Current Visit: Yes Status: Acute Assessment and Plan: -Metabolic encephalopathy likely due to sepsis and hyperuremia (as above) -patient's baseline is severely demented; ammonia WNL; glucose controlled -SIRS: 2/4 with WBC 12.6 and respiratory rate 22 day of admission -lactic acid 2.7 on admission; blood cultures 10/12/18 x2 negative final -Vancomycin and as above. Plan: Comfort care (6) Acute on chronic kidney failure Current Visit: Yes Status: Suspected Assessment and Plan: -Stage IV -VANESSA likely prerenal due to dehydration. -decreased urine output per home nurse. -initial BUN/Cr was 66/2.84. -metabolic acidosis corrected with bicarb drip. gap stable. Plan: BUN elevation with repeat VANESSA. Kidney function rapidly declining. Comfort Care (7) CHF (congestive heart failure) Current Visit: No Status: Acute Assessment and Plan: -systolic -Likely due to CAD -Outpatient echo EF 33% -Troponin and EKG as below -Beta fadi, statin, aspirin. ACEi held due to kidney injury. Plan: Comfort Care (8) NSTEMI (non-ST elevated myocardial infarction) Current Visit: Yes Status: Acute Assessment and Plan: -likely 2/2 hypovolemia and demand ischemia (Type 2) -10/12/18 and 10/13/18:Trop 0.19-0.22. EKG showed prolonged KS interval and read as suggestive of lateral ischemia 2/2 repolarization abnormality -no further treatment pursued per cardiology (9) Atrial fibrillation Current Visit: Yes Status: Chronic Assessment and Plan: -chronic -declining anticoagulation per cards. -Was on metoprolol. Comfort Care (10) Hypokalemia Current Visit: Yes Status: Acute Assessment and Plan: -likely 2/2 C.Diff diarrhea history and poor oral intake -in the setting of CKD Plan: Comfort Care DVT Prophylaxis: Comfort care - Time Spent with Patient Total time spent is greater than 50% in coordination of care (as documented) at patient's floor/unit and/or counseling patient: Internal Medicine: Result - Labs CBC & Chem 7: 10/24/18 02:16 10/24/18 02:16 - ABG Interpretation ABG results: PT/INR, D-dimer PT 15.3 Seconds (9.4-12.1) H 10/12/18 22:54 Consult Discharge Plan - Plan Referrals: [facility] [Primary Care Provider] - (Patient is home base care, patient is going to [facility] no PCP appointment needed) (6) Acute on chronic kidney failure Qualifiers: Acute renal failure type: with acute tubular necrosis Chronic kidney disease stage: stage 3 (moderate) Qualified Code(s): N17.0 - Acute kidney failure with tubular necrosis; N18.3 - Chronic kidney disease, stage 3 (moderate) (7) CHF (congestive heart failure) Qualifiers: Heart failure type: systolic Heart failure chronicity: chronic Qualified Code(s): I50.22 - Chronic systolic (congestive) heart failure (9) Atrial fibrillation Qualifiers: Atrial fibrillation type: paroxysmal Qualified Code(s): I48.0 - Paroxysmal atrial fibrillation
--- NOTE | 2018-10-27 13:56 | Death Note ---
<Malcolm Welch - Last Filed: 10/27/18 14:25> Discharge Sum: Summary - Date and Time Date of admission: 10/12/18 21:40 Date of : 10/27/18 Time of : 04:55 - Summary Details: Rayshawn Landa was a 89-year-old male with past medical history per EMR of A. fib, AICD/defibrillator, hypertension, C. difficile, CHF, CAD with multiple stent placements, dementia, CKD stage 4 who was admitted to the ICU on 10/13/18 for severe sepsis secondary to fulminant C. difficile colitis, AK I, elevated troponins, hyperkalemia, hyponatremia, CHF, as well as altered mental status. Prognosis was poor in the ICU, however patient showed some improvement and was moved to the floor. Mr. Landa's course was hallmarked by a fluid overloaded state in the setting of renal and cardiac dysfunction. As his medical and mental status waxed and waned, the family talked with palliative physician and changed the patient's CODE STATUS to DNR/comfort care. The last several days his BUN became increasingly elevated and did not improve with fluid resuscitation. Comfort care measures and orders were given and aggressive care was discontinued. Nursing reported time of to be 0455. No respirations or heart tones noted. Please see nursing notes for further details. - Additional Data Confirmation of as documented by pronouncing clinician: no respirations, no heart sounds Attending physician: Myrna Chappell Was code activated?: No Discharge Sum: Diag - PCOD Probable Cause of : Respiratory arrest Discharge Sum: Prov - Provider Primary care physician: PCP ID Admitting clinician: Saqib Berry Attending physician on admission: Saqib Berry Consults: 10/12/18 19:26 Consult to Nephrology [CONS] Stat Consulting Provider: Kidney Malia/FAVIOLA/LEELEE/BOBBY Reason for Consult: VANESSA, hyperkalemia, decreased urine output Call Completed: Yes 10/12/18 23:04 Consult to Pulmonology [CONS] Routine Consulting Provider: Pulm Crit Care & Sleep Malia Reason for Consult: ICU management Call Completed: No 10/13/18 11:03 Consult to Palliative Care [CONS] Routine Comment: Consulting Provider: Palliative Care Amlia Reason for Consult: goals of care discussion Call Completed: Yes 10/17/18 10:26 Consult to Physical Therapy [CONS] Routine Comment: Evaluate, develop and implement POC Reason for Consult: Eval and treat, weakness, recently in rehab, and now with readmission Does patient have active BEDREST order?: No Is patient medically & hemodynamically stable?: Yes 10/17/18 10:27 Consult to Occupational Therapy [CONS] Routine Comment: Evaluate, develop and implement POC Reason for Consult: eval and treat, recently in rehab at [facility] Does patient have active BEDREST order?: No Is patient medically & hemodynamically stable?: Yes 10/20/18 11:11 Consult to Cardiology [CONS] Routine Comment: Consulting Provider: Cardiology Malia Reason for Consult: Non sustained VTach Call Completed: Yes Pronouncing clinician: Janice Medley <Myrna Chappell - Last Filed: 10/27/18 14:59> Discharge Sum: Summary - Date and Time Date of admission: 10/12/18 21:40 - Additional Data Attending physician: Myrna Chappell Discharge Sum: Prov - Provider [facility] care physician: [facility] Consults: 10/12/18 19:26 Consult to Nephrology [CONS] Stat Consulting Provider: Kidney Malia/FAVIOLA/LEELEE/BOBBY Reason for Consult: VANESSA, hyperkalemia, decreased urine output Call Completed: Yes 10/12/18 23:04 Consult to Pulmonology [CONS] Routine Consulting Provider: Pulm Crit Care & Sleep Malia Reason for Consult: ICU management Call Completed: No 10/13/18 11:03 Consult to Palliative Care [CONS] Routine Comment: Consulting Provider: Palliative Care Malia Reason for Consult: goals of care discussion Call Completed: Yes 10/17/18 10:26 Consult to Physical Therapy [CONS] Routine Comment: Evaluate, develop and implement POC Reason for Consult: Eval and treat, weakness, recently in rehab, and now with readmission Does patient have active BEDREST order?: No Is patient medically & hemodynamically stable?: Yes 10/17/18 10:27 Consult to Occupational Therapy [CONS] Routine Comment: Evaluate, develop and implement POC Reason for Consult: eval and treat, recently in rehab at [facility] Does patient have active BEDREST order?: No Is patient medically & hemodynamically stable?: Yes 10/20/18 11:11 Consult to Cardiology [CONS] Routine Comment: Consulting Provider: Inez Finley Reason for Consult: Non sustained VTach Call Completed: Yes - Attending Attestation I examined this patient and my medical decision-making was reviewed with the Resident Physician Dr Welch. I agree with the documented findings, disposition and treatment plan as described except to the extent set forth below. Mr Landa was admitted for C diff, sepsis with subsequent respiratory and renal failure. His family transitioned him to hospice care and he 10/27/18.
--- NOTE | 2018-10-31 15:51 | Electrocardiograph Report ---
[place] [id number] Test Date: 2018-10-27 Pat Name: Rayshawn Landa Department: 112 Room: 2A45 Gender: M Dope Worker: : 1930 Requested By: Samuel Manzanares Order Number: [id number] Reading MD: Adilson Naylor Measurements Intervals [place] Rate: 72 P: 171 MT: 191 QRS: 0 QRSD: 6 T: 152 QT: 331 QTc: 356 Interpretive Statements Demand ventricular pacing Indeterminate axis Artifact, consider repeat ECG Electronically Signed On 10-31-2018 15:49:36 EDT by Adilson Naylor
== END 2018-10-27 02:10 | disposition expired | DRG 871 ==
LOC: EMEROOARM 17:02 → ICNU 17:02 → SUATTDRO 21:40 → ICNU 22:08 → 2NNU 10-15 18:19 → 2NENU 10-21 10:19 → 2ANU 10-24 13:50
PROVIDERS: ADMIT Pediatrics; ATTEND Internal Medicine